=== PATIENT | female | born 1960 | race Caucasian/White ===

== ENCOUNTER → 2019-01-22 11:24 | Outpatient (CLI) | payer OTHER, MEDICAID, SELFPAY ==
[2019-01-22 12:13] LABS: Hemoglobin A1C% w Est Avg Glu 5.3 % (4.0-6.0)
[2019-01-22 13:04] LABS: Alanine Aminotransferase 88 IU/L (9-52); Albumin 4.6 g/dL (3.5-5.0); Albumin Globulin Ratio 1.4 (1.0-2.8); Alkaline Phosphatase 76 U/L (38-126); Aspartate Aminotransferase 104 IU/L (14-36); BUN Creatinine Ratio 17.5 (6-22); Blood Urea Nitrogen 14 mg/dL (7-17); Calcium 9.5 mg/dL (8.4-10.2); Carbon Dioxide 25 mmol/L (22-32); Chloride 100 mmol/L (98-107); Cholesterol 176 mg/dL (140-199); Estimated Glomerular Filt Rate > 60.0 mL/min (>60); Globulin 3.4 g/dL (1.7-4.1); Glucose 97 mg/dL (70-100); HDL Cholesterol 45 mg/dL (40-60); HEMOLYSIS < 15 (0-50); LDL Cholesterol Calculated 92 mg/dL (<100); Potassium 4.8 mmol/L (3.4-5.1); Sodium 138 mmol/L (137-145); Triglycerides 196 mg/dL (35-150)
== END ==
PROVIDERS: Visit Provider Registered Nurse
DX: R73.01 Impaired fasting glucose (principal); I10 Essential (primary) hypertension
CPT/HCPCS: 36415; 80053; 80061; 83036

== ENCOUNTER → 2019-01-22 11:44 | Outpatient (CLI) | payer OTHER, MEDICAID, SELFPAY ==
--- NOTE | 2019-01-22 | DI.RAD.S_ITS ---
PROCEDURE: XR KNEE LT 3V INDICATIONS: LEFT KNEE PAIN TECHNIQUE: 3 views of the knee were acquired. COMPARISON: None. FINDINGS: Bones: Mild tricompartment osteoarthritis is seen. No fractures or dislocations. No suspicious bony lesions. Soft tissues: No joint effusion. No suspicious soft tissue calcifications. IMPRESSION: Moderate compartment osteoarthritis. No left knee fracture or dislocation. Dictated by: Gerber Garcia M.D. on 01/22/2019 at 14:31 Approved by: Gerber Garcia M.D. on 01/22/2019 at 14:31
[2019-01-22 15:49] LABS: Creatinine Urine Random 192.6 mg/dL
[2019-01-22 15:52] LABS: Microalbumin Urine Random 2.7 mg/dL (0-1.6)
== END ==
PROVIDERS: Visit Provider Registered Nurse
DX: M25.562 Pain in left knee (principal); M17.12 Unilateral primary osteoarthritis, left knee; R73.01 Impaired fasting glucose; I10 Essential (primary) hypertension
CPT/HCPCS: 36415; 73562; 80053; 80061; 82043; 82570; 83036

== ENCOUNTER → 2019-02-17 09:24 | Outpatient (CLI) | payer OTHER, MEDICAID, SELFPAY ==
--- NOTE | 2019-02-17 | DI.MG.S_ITS ---
BILATERAL DIGITAL SCREENING MAMMOGRAM 3D/2D WITH CAD: 02/17/2019 CLINICAL: Routine screening. Comparison is made to exams dated: 02/16/2018 mammogram, 12/30/2016 mammogram, and 12/18/2015 mammogram - [facility]. There are scattered fibroglandular elements in both breasts. Current study was also evaluated with a Computer Aided Detection (CAD) system. No significant masses, calcifications, or other findings are seen in either breast. There has been no significant interval change. IMPRESSION: NEGATIVE There is no mammographic evidence of malignancy. A 1 year screening mammogram is recommended. This exam was interpreted at Station ID: [id number]. NOTE: For mammograms, a report in lay terms will be sent to the patient. Approximately 15% of breast malignancies will not be visualized mammographically. In the management of a palpable breast mass, a negative mammogram must not discourage biopsy of a clinically suspicious lesion. Electronically Signed By: Nakul fraser/malena:02/17/2019 11:51:31 letter sent: Normal Exam ACR BI-RADS Category 1: Negative [id number]
== END ==
PROVIDERS: PCP Nurse Practitioner; Visit Provider Registered Nurse
DX: Z12.31 Encounter for screening mammogram for malignant neoplasm of breast (principal)
CPT/HCPCS: 77063; 77067

== ENCOUNTER 2019-04-28 09:00 | Outpatient (RCR) | payer OTHER, MEDICAID, SELFPAY ==
--- NOTE | 2019-02-22 10:20 | PT.OIE ---
Current Diagnoses Pain in left knee (02/22/19) Past Surgical History Status post delivery Provider Visit Care Team Role Provider Type ERIC Hankins Primary Care Provider Advanced Logistics Associate Specialty: Family Practice Address: [address] [place] [address], [id number] Email: ERIC Isbell Attending Provider Advanced Logistics Associate Specialty: Medical Address: [address] [place] [address], [phone] Email: Physical Therapy Initial Evaluation PT-OP-A Visit Information Start: 02/19/19 13:43 Freq: Status: Active Protocol: Document 02/22/19 09:03 [facility] (Rec: 02/22/19 09:50 [facility] [id number]) Out-Patient Physical Therapy Visit Information Visit Information Visit Type Initial Evaluation Visit Start Time 09:05 Visit Number 11/19 Number of TOOL AND DIE SUPERVISOR Visits 0 PT-OP-B Current Condition Start: 02/19/19 13:43 Freq: Status: Active Protocol: Document 02/22/19 09:03 [facility] (Rec: 02/22/19 09:50 [facility] [id number]) Current Condition History of Current Condition Onset Date chronic years Current Complaints L knee History of Current Condition Pt reports chronic L knee pain and it got worse when she was hiking and twisted it. Pt reports it goes up and down with pain and she injures it and it hurts and starts to slowly get better. Pt reports she has been doing water aerobics and it helps. Pt has it suggested to her by MD to start walking for BP. Pt reports pain at night that makes sleeping difficult. Prior Treatments and Tests Xray showed moderate arthritis Treatment Goals Patient/Caregiver Goals Start walking and maybe be able to progress to being able to walk with PT-OP-C Subjective Start: 02/19/19 13:43 Freq: Status: Active Protocol: Document 02/22/19 09:03 [facility] (Rec: 02/22/19 09:50 [facility] [id number]) Patient Questionnaires Lower Extremity Functional Scale LEFS Score 58 LEFS Impairment 20 to 39% Impaired (Score 48- 62) OP-PT Pain Assessment Location L knee Pain Location Details ant lat Intensity 4 Scale Used Numeric (1 - 10) Description Aching Frequency Constant Pain Aggravating Factors Stair Climbing Other Pain Aggravating Factors extended walking Other Pain Alleviating Factors water aerobics PT-OP-F Manual Assessment Start: 02/19/19 13:43 Freq: Status: Active Protocol: Document 02/22/19 09:03 [facility] (Rec: 02/22/19 09:50 [facility] [id number]) Manual Assessments Soft Tissue Assessment Soft Tissue Mobility Assessment STM to all LE muscles & joint line Joint Mobility Assessment Joint Mobility Assessment pronation L>R PT-OP-G Mobility & Gait Start: 02/19/19 13:43 Freq: Status: Active Protocol: Document 02/22/19 09:03 [facility] (Rec: 02/22/19 09:50 [facility] [id number]) OP Gait Assessment Comments Gait Comments Pt has dec post depression & ant elevation B PT-OP-J Posture/Palpation/Skin Start: 02/19/19 13:43 Freq: Status: Active Protocol: Document 02/22/19 09:03 [facility] (Rec: 02/22/19 09:50 [facility] [id number]) Posture Evaluation [facility] Postural Classification System [facility] Postural Classifications Anterior/Posterior PT-OP-K Range of Motion Start: 02/19/19 13:43 Freq: Status: Active Protocol: Document 02/22/19 09:03 [facility] (Rec: 02/22/19 09:50 [facility] [id number]) Knee Goniometric Range of Motion Knee Measured in Degrees Right Patient Position Supine Flexion Active (degrees) 121 Extension Active (degrees) 0 Left Patient Position Supine Flexion Active (degrees) 114 Extension Active (degrees) 8 PT-OP-L Special Tests Start: 02/19/19 13:43 Freq: Status: Active Protocol: Document 02/22/19 09:03 [facility] (Rec: 02/22/19 09:50 [facility] [id number]) Special Tests Knee Special Tests Varus- 25 Degrees Test Results neg Valgus- 25 Degrees Test Results neg Greyson Test Test Results positive L Tina's Test Results neg Posterior Draw Test Results neg PT-OP-M Strength Start: 02/19/19 13:43 Freq: Status: Active Protocol: Document 02/22/19 09:03 [facility] (Rec: 02/22/19 09:50 [facility] [id number]) Hip Strength Hip Manual Muscle Testing Right Flexion (L2) 4+ Good+ Extension (S1) 4- Good- Abduction 4 Good External Rotation 4+ Good+ Internal Rotation 4+ Good+ Left Flexion (L2) 4- Good- Extension (S1) 4- Good- Abduction 4- Good- External Rotation 4- Good- Internal Rotation 4 Good Knee Strength Knee Manual Muscle Testing Right Flexion (S2) 5 Normal Extension (L3) 5 Normal Left Flexion (S2) 4+ Good+ Extension (L3) 4 Good Ankle/Foot Strength Ankle and Foot Manual Muscle Testing Right Dorsiflexion (L4) 5 Normal Plantarflexion (S1) 5 Normal Left Dorsiflexion (L4) 5 Normal Plantarflexion (S1) 5 Normal Comments small range PT-OP-Q Treatments Start: 02/19/19 13:43 Freq: Status: Active Protocol: Document 02/22/19 09:03 [facility] (Rec: 02/22/19 10:20 [facility] [id number]) Therapeutic Exercises Supine Exercises bridge Supine Exercise Name focus on core & glute contraction Side bilateral Reps/Minutes 10 Sidelying Exercises abd Sidelying Exercise Name hip abd w/cueing for neutral position Side bilateral Reps/Minutes 10 Self-Care/Home Management Treatment Education Other Education edu for ice and heat PT-OP-T Assessment and Plan Start: 02/19/19 13:43 Freq: Status: Active Protocol: Document 02/22/19 09:03 [facility] (Rec: 02/22/19 09:50 [facility] [id number]) Physical Therapy Assessment Rehab Potential Rehabilitation Potential Good Evaluation Complexity Number of Personal Factors/Comorbidities 3 or More Number of Body Systems Impaired 4 or More Clinical Presentation at Evaluation Evolving Impairments Impairments Activity Tolerance Balance Functional Activities Functional Mobility Gait Pain Posture ROM Soft Tissue Mobility Strength Goals gait Short Term Goal (STG) Pt will walk 1 mile consistantly at least 3x/week without inc of pain greater than 1 point on 10 point scale . STG Duration 03/24/19 Vendor Specialist Goal (LTG) Pt will be able to walk at least 4x/week without inc of L knee pain. LTG Duration 04/24/19 strength Short Term Goal (STG) Pt will be indep with HEP. STG Duration 03/24/19 Vendor Specialist Goal (LTG) Pt will have 5/5 LE strength in order to allow her to progress activity tolerance. LTG Duration 04/24/19 Assessment Summary Assessment Pt presents with L knee pain with impaired foot posture & positioning and overall dec LE and core strength. She has impaired gait mechanics and limited activity tolerance at this time. She presents with Xray revealed moderate OA with no prior treatment of chronic knee pain. She would benefit from skilled PT in order to improve ROM, LE strength, gait mechanics & postural stability. Physical Therapy Plan Frequency and Duration Frequency of Treatment 2x/Week Duration of Treatment 2 months Plan of Care Start Date 02/22/19 Plan of Care End Date 04/24/19 Therapeutic Interventions Therapeutic Interventions Aquatic Therapy Balance Training Gait Training Home Exercise Program Joint Mobilizations Manual Therapy Neuromuscular Re-education Patient/Caregiver Education Self-Care/Home Management Soft Tissue Mobilization Taping Therapeutic Activities Therapeutic Exercises Modalities Cold Pack/Ice Massage Electric Stimulation Hot Packs Infrared Therapy Iontophoresis Ultrasound Next Visit Focus/Plan Next Note Type Treatment Note Next Visit Plan Assess flexiblity and do flexibility exercises, core exercise, stepper, clamshells
--- NOTE | 2019-02-22 10:20 | PT.OPPOC ---
Current Diagnoses Pain in left knee (02/22/19) Provider Visit Care Team Role Provider Type ERIC Hankins Primary Care Provider Advanced Traffic Personnel Supervisor Specialty: Family Practice Address: [address] [place] [address], [phone] Email: ERIC Isbell Attending Provider Advanced Traffic Personnel Supervisor Specialty: Medical Address: [address] [place] [address], [phone] Email: Plan Of Care PT-OP-T Assessment and Plan Start: 02/19/19 13:43 Freq: Status: Active Protocol: Document 02/22/19 09:03 [facility] (Rec: 02/22/19 09:50 [facility] [id number]) Physical Therapy Assessment Rehab Potential Rehabilitation Potential Good Evaluation Complexity Number of Personal Factors/Comorbidities 3 or More Number of Body Systems Impaired 4 or More Clinical Presentation at Evaluation Evolving Impairments Impairments Activity Tolerance Balance Functional Activities Functional Mobility Gait Pain Posture ROM Soft Tissue Mobility Strength Goals gait Short Term Goal (STG) Pt will walk 1 mile consistantly at least 3x/week without inc of pain greater than 1 point on 10 point scale . STG Duration 03/24/19 Auction Clerk Goal (LTG) Pt will be able to walk at least 4x/week without inc of L knee pain. LTG Duration 04/24/19 strength Short Term Goal (STG) Pt will be indep with HEP. STG Duration 03/24/19 Auction Clerk Goal (LTG) Pt will have 5/5 LE strength in order to allow her to progress activity tolerance. LTG Duration 04/24/19 Assessment Summary Assessment Pt presents with L knee pain with impaired foot posture & positioning and overall dec LE and core strength. She has impaired gait mechanics and limited activity tolerance at this time. She presents with Xray revealed moderate OA with no prior treatment of chronic knee pain. She would benefit from skilled PT in order to improve ROM, LE strength, gait mechanics & postural stability. Physical Therapy Plan Frequency and Duration Frequency of Treatment 2x/Week Duration of Treatment 2 months Plan of Care Start Date 02/22/19 Plan of Care End Date 04/24/19 Therapeutic Interventions Therapeutic Interventions Aquatic Therapy Balance Training Gait Training Home Exercise Program Joint Mobilizations Manual Therapy Neuromuscular Re-education Patient/Caregiver Education Self-Care/Home Management Soft Tissue Mobilization Taping Therapeutic Activities Therapeutic Exercises Modalities Cold Pack/Ice Massage Electric Stimulation Hot Packs Infrared Therapy Iontophoresis Ultrasound Next Visit Focus/Plan Next Note Type Treatment Note Next Visit Plan Assess flexiblity and do flexibility exercises, core exercise, stepper, clamshells Plan of Care Dates Plan of Care Start Date 02/22/19 Plan of Care End Date 04/24/19 Please Sign and Return: I have reviewed this Plan of Care and certify that the skilled therapy services above are required to meet the patient?s needs. Physician Signature Date Printed Name and Credentials Clinical Instructor Signature Printed Name and Credentials
--- NOTE | 2019-02-24 09:45 | PT.OTN ---
Current Diagnoses Pain in left knee (02/24/19) Physical Therapy Treatment Note PT-OP-A Visit Information Start: 02/19/19 13:43 Freq: Status: Active Protocol: Document 02/24/19 09:05 [facility] (Rec: 02/24/19 09:44 [facility] [id number]) Out-Patient Physical Therapy Visit Information Visit Information Visit Type Treatment Note Visit Start Time 09:00 Visit Stop Time 09:40 Total Visit Minutes 40 Visit Number 2 Number of PATIENT SAFETY MANAGER Visits 0 PT-OP-B Current Condition Start: 02/19/19 13:43 Freq: Status: Active Protocol: Document 02/22/19 09:03 [facility] (Rec: 02/22/19 09:50 [facility] [id number]) Current Condition History of Current Condition Onset Date chronic years Current Complaints L knee History of Current Condition Pt reports chronic L knee pain and it got worse when she was hiking and twisted it. Pt reports it goes up and down with pain and she injures it and it hurts and starts to slowly get better. Pt reports she has been doing water aerobics and it helps. Pt has it suggested to her by MD to start walking for BP. Pt reports pain at night that makes sleeping difficult. Prior Treatments and Tests Xray showed moderate arthritis Treatment Goals Patient/Caregiver Goals Start walking and maybe be able to progress to being able to walk with PT-OP-C Subjective Start: 02/19/19 13:43 Freq: Status: Active Protocol: Document 02/24/19 09:05 [facility] (Rec: 02/24/19 09:44 [facility] [id number]) OP-PT Subjective Patient Comments Patient Comments Pt reports she is doing the exercises at home and they are a challenge. Her knee was stiff yesterday PT-OP-F Manual Assessment Start: 02/19/19 13:43 Freq: Status: Active Protocol: Document 02/22/19 09:03 [facility] (Rec: 02/22/19 09:50 [facility] [id number]) Manual Assessments Soft Tissue Assessment Soft Tissue Mobility Assessment STM to all LE muscles & joint line Joint Mobility Assessment Joint Mobility Assessment pronation L>R PT-OP-G Mobility & Gait Start: 02/19/19 13:43 Freq: Status: Active Protocol: Document 02/22/19 09:03 [facility] (Rec: 02/22/19 09:50 [facility] [id number]) OP Gait Assessment Comments Gait Comments Pt has dec post depression & ant elevation B PT-OP-J Posture/Palpation/Skin Start: 02/19/19 13:43 Freq: Status: Active Protocol: Document 02/22/19 09:03 [facility] (Rec: 02/22/19 09:50 [facility] [id number]) Posture Evaluation [facility] Postural Classification System [facility] Postural Classifications Anterior/Posterior PT-OP-K Range of Motion Start: 02/19/19 13:43 Freq: Status: Active Protocol: Document 02/22/19 09:03 [facility] (Rec: 02/22/19 09:50 [facility] [id number]) Knee Goniometric Range of Motion Knee Measured in Degrees Right Patient Position Supine Flexion Active (degrees) 121 Extension Active (degrees) 0 Left Patient Position Supine Flexion Active (degrees) 114 Extension Active (degrees) 8 PT-OP-L Special Tests Start: 02/19/19 13:43 Freq: Status: Active Protocol: Document 02/22/19 09:03 [facility] (Rec: 02/22/19 09:50 [facility] [id number]) Special Tests Knee Special Tests Varus- 25 Degrees Test Results neg Valgus- 25 Degrees Test Results neg Greyson Test Test Results positive L Tina's Test Results neg Posterior Draw Test Results neg PT-OP-M Strength Start: 02/19/19 13:43 Freq: Status: Active Protocol: Document 02/22/19 09:03 [facility] (Rec: 02/22/19 09:50 [facility] [id number]) Hip Strength Hip Manual Muscle Testing Right Flexion (L2) 4+ Good+ Extension (S1) 4- Good- Abduction 4 Good External Rotation 4+ Good+ Internal Rotation 4+ Good+ Left Flexion (L2) 4- Good- Extension (S1) 4- Good- Abduction 4- Good- External Rotation 4- Good- Internal Rotation 4 Good Knee Strength Knee Manual Muscle Testing Right Flexion (S2) 5 Normal Extension (L3) 5 Normal Left Flexion (S2) 4+ Good+ Extension (L3) 4 Good Ankle/Foot Strength Ankle and Foot Manual Muscle Testing Right Dorsiflexion (L4) 5 Normal Plantarflexion (S1) 5 Normal Left Dorsiflexion (L4) 5 Normal Plantarflexion (S1) 5 Normal Comments small range PT-OP-Q Treatments Start: 02/19/19 13:43 Freq: Status: Active Protocol: Document 02/24/19 09:05 [facility] (Rec: 02/24/19 09:44 [facility] [id number]) Cardio Equipment Recumbent Elliptical (Biodex) Duration (Minutes) 5 Resistance 3 Therapeutic Exercises Supine Exercises SLR Supine Exercise Name w/core brace Side bilateral Reps/Minutes 10 HS stretch Supine Exercise Name HS stretch Side bilateral Reps/Minutes 30 sec Felix test Supine Exercise Name stretch Side bilateral Reps/Minutes 30 sec holds bridge Supine Exercise Name focus on core & glute contraction Side bilateral Reps/Minutes 10 Sidelying Exercises ER Sidelying Exercise Name clamshells Side bilateral Reps/Minutes 10 abd Sidelying Exercise Name hip abd w/cueing for neutral position Side bilateral Reps/Minutes 10 Manual Therapy Treatment Soft Tissue Mobilization quad Body Location quad Mobilization Type Rolling Intensity/Depth Moderate Body Position Supine ITB Body Location ITB Mobilization Type Rolling Intensity/Depth Moderate Body Position Hooklying PT-OP-T Assessment and Plan Start: 02/19/19 13:43 Freq: Status: Active Protocol: Document 02/24/19 09:05 [facility] (Rec: 02/24/19 09:44 [facility] [id number]) Physical Therapy Assessment Goals gait Short Term Goal (STG) Pt will walk 1 mile consistantly at least 3x/week without inc of pain greater than 1 point on 10 point scale . STG Duration 03/24/19 Senior Living Goal (LTG) Pt will be able to walk at least 4x/week without inc of L knee pain. LTG Duration 04/24/19 strength Short Term Goal (STG) Pt will be indep with HEP. STG Duration 03/24/19 Junior Web Developer Goal (LTG) Pt will have 5/5 LE strength in order to allow her to progress activity tolerance. LTG Duration 04/24/19 Assessment Summary Assessment Pt able to tolerate all exercises without c/o knee pain except stepper which did create some mild soreness. She required ceuing throughout for core to keep pelvis neutral during exercise. Physical Therapy Plan Frequency and Duration Frequency of Treatment 2x/Week Duration of Treatment 2 months Plan of Care Start Date 02/22/19 Plan of Care End Date 04/24/19 Next Visit Focus/Plan Next Note Type Treatment Note Next Visit Plan Leg press and try mini squat in standing, progress core & LE strenth
--- NOTE | 2019-03-02 09:15 | PT.OTN ---
Current Diagnoses Pain in left knee (03/02/19) Physical Therapy Treatment Note PT-OP-A Visit Information Start: 02/19/19 13:43 Freq: Status: Active Protocol: Document 03/02/19 08:20 [facility] (Rec: 03/02/19 09:15 [facility] [id number]) Out-Patient Physical Therapy Visit Information Visit Information Visit Type Treatment Note Visit Start Time 08:18 Visit Stop Time 08:58 Total Visit Minutes 40 Visit Number 3 Number of LPN RN Visits 0 PT-OP-B Current Condition Start: 02/19/19 13:43 Freq: Status: Active Protocol: Document 02/22/19 09:03 [facility] (Rec: 02/22/19 09:50 [facility] [id number]) Current Condition History of Current Condition Onset Date chronic years Current Complaints L knee History of Current Condition Pt reports chronic L knee pain and it got worse when she was hiking and twisted it. Pt reports it goes up and down with pain and she injures it and it hurts and starts to slowly get better. Pt reports she has been doing water aerobics and it helps. Pt has it suggested to her by MD to start walking for BP. Pt reports pain at night that makes sleeping difficult. Prior Treatments and Tests Xray showed moderate arthritis Treatment Goals Patient/Caregiver Goals Start walking and maybe be able to progress to being able to walk with PT-OP-C Subjective Start: 02/19/19 13:43 Freq: Status: Active Protocol: Document 03/02/19 08:20 [facility] (Rec: 03/02/19 09:15 [facility] [id number]) OP-PT Subjective Patient Comments Patient Comments Pt reports she felt better w/ last treatment, but noted she walked Fri and irritated again . PT-OP-F Manual Assessment Start: 02/19/19 13:43 Freq: Status: Active Protocol: Document 02/22/19 09:03 [facility] (Rec: 02/22/19 09:50 [facility] [id number]) Manual Assessments Soft Tissue Assessment Soft Tissue Mobility Assessment STM to all LE muscles & joint line Joint Mobility Assessment Joint Mobility Assessment pronation L>R PT-OP-G Mobility & Gait Start: 02/19/19 13:43 Freq: Status: Active Protocol: Document 02/22/19 09:03 [facility] (Rec: 02/22/19 09:50 [facility] [id number]) OP Gait Assessment Comments Gait Comments Pt has dec post depression & ant elevation B PT-OP-J Posture/Palpation/Skin Start: 02/19/19 13:43 Freq: Status: Active Protocol: Document 02/22/19 09:03 [facility] (Rec: 02/22/19 09:50 [facility] [id number]) Posture Evaluation [facility] Postural Classification System [facility] Postural Classifications Anterior/Posterior PT-OP-K Range of Motion Start: 02/19/19 13:43 Freq: Status: Active Protocol: Document 02/22/19 09:03 [facility] (Rec: 02/22/19 09:50 [facility] [id number]) Knee Goniometric Range of Motion Knee Measured in Degrees Right Patient Position Supine Flexion Active (degrees) 121 Extension Active (degrees) 0 Left Patient Position Supine Flexion Active (degrees) 114 Extension Active (degrees) 8 PT-OP-L Special Tests Start: 02/19/19 13:43 Freq: Status: Active Protocol: Document 02/22/19 09:03 [facility] (Rec: 02/22/19 09:50 [facility] [id number]) Special Tests Knee Special Tests Varus- 25 Degrees Test Results neg Valgus- 25 Degrees Test Results neg Greyson Test Test Results positive L Tina's Test Results neg Posterior Draw Test Results neg PT-OP-M Strength Start: 02/19/19 13:43 Freq: Status: Active Protocol: Document 02/22/19 09:03 [facility] (Rec: 02/22/19 09:50 [facility] [id number]) Hip Strength Hip Manual Muscle Testing Right Flexion (L2) 4+ Good+ Extension (S1) 4- Good- Abduction 4 Good External Rotation 4+ Good+ Internal Rotation 4+ Good+ Left Flexion (L2) 4- Good- Extension (S1) 4- Good- Abduction 4- Good- External Rotation 4- Good- Internal Rotation 4 Good Knee Strength Knee Manual Muscle Testing Right Flexion (S2) 5 Normal Extension (L3) 5 Normal Left Flexion (S2) 4+ Good+ Extension (L3) 4 Good Ankle/Foot Strength Ankle and Foot Manual Muscle Testing Right Dorsiflexion (L4) 5 Normal Plantarflexion (S1) 5 Normal Left Dorsiflexion (L4) 5 Normal Plantarflexion (S1) 5 Normal Comments small range PT-OP-Q Treatments Start: 02/19/19 13:43 Freq: Status: Active Protocol: Document 03/02/19 08:20 [facility] (Rec: 03/02/19 09:15 [facility] [id number]) Gym Equipment Shuttle Recovery Bilateral Squats Resistance 75 Shuttle Recovery Platform Unstable Reps/Time 2x15 Therapeutic Exercises Supine Exercises SLR Supine Exercise Name w/core brace Side bilateral Reps/Minutes 10 Sidelying Exercises ER Sidelying Exercise Name clamshells Side bilateral Reps/Minutes 10 abd Sidelying Exercise Name hip abd w/cueing for neutral position Side bilateral Reps/Minutes 10 Standing Exercises squat Standing Exercise Name at rail Side bilateral Reps/Minutes 2x10 Comments mini Manual Therapy Treatment Soft Tissue Mobilization ant knee Body Location med direction Mobilization Type Myofascial Release Intensity/Depth Superficial Body Position Hooklying quad Body Location quad Mobilization Type Rolling Intensity/Depth Moderate Body Position Supine ITB Body Location ITB Mobilization Type Rolling Intensity/Depth Moderate Body Position Hooklying Taping KT Body Location for med patellar glide Treatment Focus 3 Ys Type of Tape Kinesio Tape PT-OP-T Assessment and Plan Start: 02/19/19 13:43 Freq: Status: Active Protocol: Document 03/02/19 08:20 [facility] (Rec: 03/02/19 09:15 [facility] [id number]) Physical Therapy Assessment Goals gait Short Term Goal (STG) Pt will walk 1 mile consistantly at least 3x/week without inc of pain greater than 1 point on 10 point scale . STG Duration 03/24/19 Care Home Goal (LTG) Pt will be able to walk at least 4x/week without inc of L knee pain. LTG Duration 04/24/19 strength Short Term Goal (STG) Pt will be indep with HEP. STG Duration 03/24/19 [employer] Goal (LTG) Pt will have 5/5 LE strength in order to allow her to progress activity tolerance. LTG Duration 04/24/19 Assessment Summary Assessment Pt was able to tolerate all exercises with no c/o pain. Pt required min cueing for s/l abd positioning and maintaining leg in line with body. Physical Therapy Plan Frequency and Duration Frequency of Treatment 2x/Week Duration of Treatment 2 months Plan of Care Start Date 02/22/19 Plan of Care End Date 04/24/19 Next Visit Focus/Plan Next Note Type Treatment Note Next Visit Plan COnt to progress core & standing LE strength & stability
--- NOTE | 2019-03-04 15:52 | PT.OTN ---
Current Diagnoses Pain in left knee (03/04/19) Physical Therapy Treatment Note PT-OP-A Visit Information Start: 02/19/19 13:43 Freq: Status: Active Protocol: Document 03/04/19 09:00 (Rec: 03/04/19 09:03 [id number]) Out-Patient Physical Therapy Visit Information Visit Information Visit Type Treatment Note Visit Start Time 08:20 Visit Stop Time 09:00 Total Visit Minutes 40 Visit Number 4 Number of LIQUID CHLORINE OPERATOR Visits 0 PT-OP-B Current Condition Start: 02/19/19 13:43 Freq: Status: Active Protocol: Document 02/22/19 09:03 [facility] (Rec: 02/22/19 09:50 [facility] [id number]) Current Condition History of Current Condition Onset Date chronic years Current Complaints L knee History of Current Condition Pt reports chronic L knee pain and it got worse when she was hiking and twisted it. Pt reports it goes up and down with pain and she injures it and it hurts and starts to slowly get better. Pt reports she has been doing water aerobics and it helps. Pt has it suggested to her by MD to start walking for BP. Pt reports pain at night that makes sleeping difficult. Prior Treatments and Tests Xray showed moderate arthritis Treatment Goals Patient/Caregiver Goals Start walking and maybe be able to progress to being able to walk with PT-OP-C Subjective Start: 02/19/19 13:43 Freq: Status: Active Protocol: Document 03/04/19 09:00 [facility] (Rec: 03/04/19 09:03 [id number]) OP-PT Subjective Patient Comments Patient Comments Pt notes that the tape really helps, she did her HEP yesterday and has had some soreness in lower abdominals with core stabilization ex. PT-OP-F Manual Assessment Start: 02/19/19 13:43 Freq: Status: Active Protocol: Document 02/22/19 09:03 [facility] (Rec: 02/22/19 09:50 [facility] [id number]) Manual Assessments Soft Tissue Assessment Soft Tissue Mobility Assessment STM to all LE muscles & joint line Joint Mobility Assessment Joint Mobility Assessment pronation L>R PT-OP-G Mobility & Gait Start: 02/19/19 13:43 Freq: Status: Active Protocol: Document 02/22/19 09:03 [facility] (Rec: 02/22/19 09:50 [facility] [id number]) OP Gait Assessment Comments Gait Comments Pt has dec post depression & ant elevation B PT-OP-J Posture/Palpation/Skin Start: 02/19/19 13:43 Freq: Status: Active Protocol: Document 02/22/19 09:03 [facility] (Rec: 02/22/19 09:50 [facility] [id number]) Posture Evaluation [facility] Postural Classification System [facility] Postural Classifications Anterior/Posterior PT-OP-K Range of Motion Start: 02/19/19 13:43 Freq: Status: Active Protocol: Document 02/22/19 09:03 [facility] (Rec: 02/22/19 09:50 [facility] [id number]) Knee Goniometric Range of Motion Knee Measured in Degrees Right Patient Position Supine Flexion Active (degrees) 121 Extension Active (degrees) 0 Left Patient Position Supine Flexion Active (degrees) 114 Extension Active (degrees) 8 PT-OP-L Special Tests Start: 02/19/19 13:43 Freq: Status: Active Protocol: Document 02/22/19 09:03 [facility] (Rec: 02/22/19 09:50 [facility] [id number]) Special Tests Knee Special Tests Varus- 25 Degrees Test Results neg Valgus- 25 Degrees Test Results neg Greyson Test Test Results positive L Tina's Test Results neg Posterior Draw Test Results neg PT-OP-M Strength Start: 02/19/19 13:43 Freq: Status: Active Protocol: Document 02/22/19 09:03 [facility] (Rec: 02/22/19 09:50 [facility] [id number]) Hip Strength Hip Manual Muscle Testing Right Flexion (L2) 4+ Good+ Extension (S1) 4- Good- Abduction 4 Good External Rotation 4+ Good+ Internal Rotation 4+ Good+ Left Flexion (L2) 4- Good- Extension (S1) 4- Good- Abduction 4- Good- External Rotation 4- Good- Internal Rotation 4 Good Knee Strength Knee Manual Muscle Testing Right Flexion (S2) 5 Normal Extension (L3) 5 Normal Left Flexion (S2) 4+ Good+ Extension (L3) 4 Good Ankle/Foot Strength Ankle and Foot Manual Muscle Testing Right Dorsiflexion (L4) 5 Normal Plantarflexion (S1) 5 Normal Left Dorsiflexion (L4) 5 Normal Plantarflexion (S1) 5 Normal Comments small range PT-OP-Q Treatments Start: 04/26/19 13:43 Freq: Status: Active Protocol: Document 03/04/19 09:00 BS (Rec: 03/04/19 09:03 BS [id number]) Gym Equipment Shuttle Recovery Bilateral Squats Resistance 75 Shuttle Recovery Platform Unstable Reps/Time 2x15 Therapeutic Exercises Supine Exercises SLR Supine Exercise Name w/core brace Side bilateral Reps/Minutes x12 HS stretch Supine Exercise Name HS stretch Side bilateral Reps/Minutes 30 sec Felix test Supine Exercise Name stretch Side bilateral Reps/Minutes 30 sec holds bridge Supine Exercise Name focus on core & glute contraction Side bilateral Reps/Minutes 2x10 Prone Exercises 1 Prone Exercise Name prone quad stretch Side bilateral Equipment Used gait belt Reps/Minutes 1x30 each Sidelying Exercises ER Sidelying Exercise Name clamshells Side bilateral Equipment Used #1 band Reps/Minutes 10 Comments supine, TA contraction abd Sidelying Exercise Name hip abd w/cueing for neutral position Side bilateral Reps/Minutes 2x10 Standing Exercises squat Standing Exercise Name wall squats Side bilateral Reps/Minutes 2x10 Comments TA contraction Manual Therapy Treatment Taping KT Body Location for med patellar glide Treatment Focus 3 Ys Type of Tape Kinesio Tape PT-OP-T Assessment and Plan Start: 02/19/19 13:43 Freq: Status: Active Protocol: Document 03/04/19 09:00 BS (Rec: 03/04/19 13:32 BS [id number]) Physical Therapy Assessment Goals gait Short Term Goal (STG) Pt will walk 1 mile consistantly at least 3x/week without inc of pain greater than 1 point on 10 point scale . STG Duration 03/24/19 Residential Goal (LTG) Pt will be able to walk at least 4x/week without inc of L knee pain. LTG Duration 04/24/19 strength Short Term Goal (STG) Pt will be indep with HEP. STG Duration 03/24/19 Retirement Officer Goal (LTG) Pt will have 5/5 LE strength in order to allow her to progress activity tolerance. LTG Duration 04/24/19 Assessment Summary Assessment Pt tolerated session well, did complain of fatigue and mm soreness with TA bracing exercises. No exercises today aggravated her L knee pain. KT taped L knee at end of session as pt notes benefits from it. Physical Therapy Plan Frequency and Duration Frequency of Treatment 2x/Week Duration of Treatment 2 months Plan of Care Start Date 02/22/19 Plan of Care End Date 04/24/19 Next Visit Focus/Plan Next Note Type Treatment Note Next Visit Plan Progress LE strengthening and core stability as able. Monitor core mm soreness.
--- NOTE | 2019-03-08 10:39 | PT.OTN ---
Current Diagnoses Pain in left knee (03/08/19) Physical Therapy Treatment Note PT-OP-A Visit Information Start: 02/19/19 13:43 Freq: Status: Active Protocol: Document 03/08/19 09:06 EA (Rec: 03/08/19 09:38 EA [id number]) Out-Patient Physical Therapy Visit Information Visit Information Visit Type Treatment Note Visit Start Time 08:15 Visit Stop Time 09:00 Total Visit Minutes 40 Visit Number 5 Number of EVENT SALES REPRESENTATIVE Visits 0 PT-OP-B Current Condition Start: 02/19/19 13:43 Freq: Status: Active Protocol: Document 02/22/19 09:03 [facility] (Rec: 02/22/19 09:50 [facility] [id number]) Current Condition History of Current Condition Onset Date chronic years Current Complaints L knee History of Current Condition Pt reports chronic L knee pain and it got worse when she was hiking and twisted it. Pt reports it goes up and down with pain and she injures it and it hurts and starts to slowly get better. Pt reports she has been doing water aerobics and it helps. Pt has it suggested to her by MD to start walking for BP. Pt reports pain at night that makes sleeping difficult. Prior Treatments and Tests Xray showed moderate arthritis Treatment Goals Patient/Caregiver Goals Start walking and maybe be able to progress to being able to walk with PT-OP-C Subjective Start: 02/19/19 13:43 Freq: Status: Active Protocol: Document 03/08/19 09:06 EA (Rec: 03/08/19 09:38 EA [id number]) OP-PT Subjective Patient Comments Patient Comments Pt reports compliant with HEP. PT-OP-F Manual Assessment Start: 02/19/19 13:43 Freq: Status: Active Protocol: Document 02/22/19 09:03 [facility] (Rec: 02/22/19 09:50 [facility] [id number]) Manual Assessments Soft Tissue Assessment Soft Tissue Mobility Assessment STM to all LE muscles & joint line Joint Mobility Assessment Joint Mobility Assessment pronation L>R PT-OP-G Mobility & Gait Start: 02/19/19 13:43 Freq: Status: Active Protocol: Document 02/22/19 09:03 [facility] (Rec: 02/22/19 09:50 [facility] [id number]) OP Gait Assessment Comments Gait Comments Pt has dec post depression & ant elevation B PT-OP-J Posture/Palpation/Skin Start: 02/19/19 13:43 Freq: Status: Active Protocol: Document 02/22/19 09:03 [facility] (Rec: 02/22/19 09:50 [facility] [id number]) Posture Evaluation [facility] Postural Classification System [facility] Postural Classifications Anterior/Posterior PT-OP-K Range of Motion Start: 02/19/19 13:43 Freq: Status: Active Protocol: Document 02/22/19 09:03 [facility] (Rec: 02/22/19 09:50 [facility] [id number]) Knee Goniometric Range of Motion Knee Measured in Degrees Right Patient Position Supine Flexion Active (degrees) 121 Extension Active (degrees) 0 Left Patient Position Supine Flexion Active (degrees) 114 Extension Active (degrees) 8 PT-OP-L Special Tests Start: 02/19/19 13:43 Freq: Status: Active Protocol: Document 02/22/19 09:03 [facility] (Rec: 02/22/19 09:50 [facility] [id number]) Special Tests Knee Special Tests Varus- 25 Degrees Test Results neg Valgus- 25 Degrees Test Results neg Greyson Test Test Results positive L Tina's Test Results neg Posterior Draw Test Results neg PT-OP-M Strength Start: 02/19/19 13:43 Freq: Status: Active Protocol: Document 02/22/19 09:03 [facility] (Rec: 02/22/19 09:50 [facility] [id number]) Hip Strength Hip Manual Muscle Testing Right Flexion (L2) 4+ Good+ Extension (S1) 4- Good- Abduction 4 Good External Rotation 4+ Good+ Internal Rotation 4+ Good+ Left Flexion (L2) 4- Good- Extension (S1) 4- Good- Abduction 4- Good- External Rotation 4- Good- Internal Rotation 4 Good Knee Strength Knee Manual Muscle Testing Right Flexion (S2) 5 Normal Extension (L3) 5 Normal Left Flexion (S2) 4+ Good+ Extension (L3) 4 Good Ankle/Foot Strength Ankle and Foot Manual Muscle Testing Right Dorsiflexion (L4) 5 Normal Plantarflexion (S1) 5 Normal Left Dorsiflexion (L4) 5 Normal Plantarflexion (S1) 5 Normal Comments small range PT-OP-Q Treatments Start: 02/19/19 13:43 Freq: Status: Active Protocol: Document 03/08/19 09:06 [facility] (Rec: 03/08/19 09:38 EA [id number]) Cardio Equipment Recumbent Bicycle Duration (Minutes) 5 Seat Position as tolerated range Other warm up Gym Equipment Shuttle Recovery Unilateral Squats Details 25# Reps/Time x15 reps Bilateral Squats Resistance 75 Shuttle Recovery Platform Unstable Reps/Time 2x15 Therapeutic Exercises Supine Exercises SLR Supine Exercise Name w/core brace Side bilateral Reps/Minutes x12 HS stretch Supine Exercise Name HS stretch Side bilateral Reps/Minutes 30 sec Felix test Supine Exercise Name stretch Side bilateral Reps/Minutes 30 sec holds bridge Supine Exercise Name focus on core & glute contraction Side bilateral Reps/Minutes 2x10 Prone Exercises 1 Prone Exercise Name prone quad stretch Side bilateral Equipment Used gait belt Reps/Minutes 1x30 each Sidelying Exercises ER Sidelying Exercise Name clamshells Side bilateral Equipment Used #1 band Reps/Minutes 10 x 2 sets Comments supine, TA contraction abd Sidelying Exercise Name hip abd w/cueing for neutral position Side bilateral Reps/Minutes 2x10 Standing Exercises squat Standing Exercise Name wall squats Side bilateral Reps/Minutes 2x10 Comments TA contraction Manual Therapy Treatment Soft Tissue Mobilization ant knee Body Location med direction Mobilization Type Myofascial Release Intensity/Depth Superficial Body Position Hooklying quad Body Location quad Mobilization Type Rolling Intensity/Depth Moderate Body Position Supine ITB Body Location ITB Mobilization Type Rolling Intensity/Depth Moderate Body Position Hooklying Taping KT Body Location for med patellar glide Treatment Focus 3 Ys Type of Tape Kinesio Tape PT-OP-T Assessment and Plan Start: 02/19/19 13:43 Freq: Status: Active Protocol: Document 03/08/19 09:06 [facility] (Rec: 03/08/19 09:38 EA [id number]) Physical Therapy Assessment Assessment Summary Assessment Pt tolerated treatment will with no discomfort noted except with difficulty in prone quads stretch. Physical Therapy Plan Next Visit Focus/Plan Next Note Type Treatment Note Next Visit Plan Progress LE strengthening and core stability as able. Monitor core mm soreness.
--- NOTE | 2019-03-11 12:43 | PT.OTN ---
Current Diagnoses Pain in left knee (03/11/19) Physical Therapy Treatment Note PT-OP-A Visit Information Start: 02/19/19 13:43 Freq: Status: Active Protocol: Document 03/08/19 09:06 EA (Rec: 03/08/19 09:38 EA [id number]) Out-Patient Physical Therapy Visit Information Visit Information Visit Type Treatment Note Visit Start Time 08:15 Visit Stop Time 09:00 Total Visit Minutes 40 Visit Number 5 Number of RN ENTEROSTOMAL Visits 0 PT-OP-B Current Condition Start: 02/19/19 13:43 Freq: Status: Active Protocol: Document 02/22/19 09:03 LR (Rec: 02/22/19 09:50 [facility] [id number]) Current Condition History of Current Condition Onset Date chronic years Current Complaints L knee History of Current Condition Pt reports chronic L knee pain and it got worse when she was hiking and twisted it. Pt reports it goes up and down with pain and she injures it and it hurts and starts to slowly get better. Pt reports she has been doing water aerobics and it helps. Pt has it suggested to her by MD to start walking for BP. Pt reports pain at night that makes sleeping difficult. Prior Treatments and Tests Xray showed moderate arthritis Treatment Goals Patient/Caregiver Goals Start walking and maybe be able to progress to being able to walk with PT-OP-C Subjective Start: 02/19/19 13:43 Freq: Status: Active Protocol: Document 03/08/19 09:06 EA (Rec: 03/08/19 09:38 EA [id number]) OP-PT Subjective Patient Comments Patient Comments Pt reports compliant with HEP. PT-OP-F Manual Assessment Start: 02/19/19 13:43 Freq: Status: Active Protocol: Document 02/22/19 09:03 [facility] (Rec: 02/22/19 09:50 [facility] [id number]) Manual Assessments Soft Tissue Assessment Soft Tissue Mobility Assessment STM to all LE muscles & joint line Joint Mobility Assessment Joint Mobility Assessment pronation L>R PT-OP-G Mobility & Gait Start: 02/19/19 13:43 Freq: Status: Active Protocol: Document 02/22/19 09:03 [facility] (Rec: 02/22/19 09:50 [facility] [id number]) OP Gait Assessment Comments Gait Comments Pt has dec post depression & ant elevation B PT-OP-J Posture/Palpation/Skin Start: 02/19/19 13:43 Freq: Status: Active Protocol: Document 02/22/19 09:03 [facility] (Rec: 02/22/19 09:50 [facility] [id number]) Posture Evaluation [facility] Postural Classification System [place] Postural Classifications Anterior/Posterior PT-OP-K Range of Motion Start: 02/19/19 13:43 Freq: Status: Active Protocol: Document 02/22/19 09:03 [facility] (Rec: 02/22/19 09:50 [facility] [id number]) Knee Goniometric Range of Motion Knee Measured in Degrees Right Patient Position Supine Flexion Active (degrees) 121 Extension Active (degrees) 0 Left Patient Position Supine Flexion Active (degrees) 114 Extension Active (degrees) 8 PT-OP-L Special Tests Start: 02/19/19 13:43 Freq: Status: Active Protocol: Document 02/22/19 09:03 [facility] (Rec: 02/22/19 09:50 [facility] [id number]) Special Tests Knee Special Tests Varus- 25 Degrees Test Results neg Valgus- 25 Degrees Test Results neg Greyson Test Test Results positive L Tina's Test Results neg Posterior Draw Test Results neg PT-OP-M Strength Start: 02/19/19 13:43 Freq: Status: Active Protocol: Document 02/22/19 09:03 [facility] (Rec: 02/22/19 09:50 [facility] [id number]) Hip Strength Hip Manual Muscle Testing Right Flexion (L2) 4+ Good+ Extension (S1) 4- Good- Abduction 4 Good External Rotation 4+ Good+ Internal Rotation 4+ Good+ Left Flexion (L2) 4- Good- Extension (S1) 4- Good- Abduction 4- Good- External Rotation 4- Good- Internal Rotation 4 Good Knee Strength Knee Manual Muscle Testing Right Flexion (S2) 5 Normal Extension (L3) 5 Normal Left Flexion (S2) 4+ Good+ Extension (L3) 4 Good Ankle/Foot Strength Ankle and Foot Manual Muscle Testing Right Dorsiflexion (L4) 5 Normal Plantarflexion (S1) 5 Normal Left Dorsiflexion (L4) 5 Normal Plantarflexion (S1) 5 Normal Comments small range PT-OP-Q Treatments Start: 02/19/19 13:43 Freq: Status: Active Protocol: Document 03/08/19 09:06 ZANA (Rec: 03/08/19 09:38 EA [id number]) Cardio Equipment Recumbent Bicycle Duration (Minutes) 5 Seat Position as tolerated range Other warm up Gym Equipment Shuttle Recovery Unilateral Squats Details 25# Reps/Time x15 reps Bilateral Squats Resistance 75 Shuttle Recovery Platform Unstable Reps/Time 2x15 Therapeutic Exercises Supine Exercises SLR Supine Exercise Name w/core brace Side bilateral Reps/Minutes x12 HS stretch Supine Exercise Name HS stretch Side bilateral Reps/Minutes 30 sec Felix test Supine Exercise Name stretch Side bilateral Reps/Minutes 30 sec holds bridge Supine Exercise Name focus on core & glute contraction Side bilateral Reps/Minutes 2x10 Prone Exercises 1 Prone Exercise Name prone quad stretch Side bilateral Equipment Used gait belt Reps/Minutes 1x30 each Sidelying Exercises ER Sidelying Exercise Name clamshells Side bilateral Equipment Used #1 band Reps/Minutes 10 x 2 sets Comments supine, TA contraction abd Sidelying Exercise Name hip abd w/cueing for neutral position Side bilateral Reps/Minutes 2x10 Standing Exercises squat Standing Exercise Name wall squats Side bilateral Reps/Minutes 2x10 Comments TA contraction Manual Therapy Treatment Soft Tissue Mobilization ant knee Body Location med direction Mobilization Type Myofascial Release Intensity/Depth Superficial Body Position Hooklying quad Body Location quad Mobilization Type Rolling Intensity/Depth Moderate Body Position Supine ITB Body Location ITB Mobilization Type Rolling Intensity/Depth Moderate Body Position Hooklying Taping KT Body Location for med patellar glide Treatment Focus 3 Ys Type of Tape Kinesio Tape PT-OP-T Assessment and Plan Start: 02/19/19 13:43 Freq: Status: Active Protocol: Document 03/08/19 09:06 ZANA (Rec: 03/08/19 09:38 EA [id number]) Physical Therapy Assessment Assessment Summary Assessment Pt tolerated treament will with no discomfort noted ecept with difficulty in prone quads stretch. Physical Therapy Plan Next Visit Focus/Plan Next Note Type Treatment Note Next Visit Plan Progress LE strengthening and core stability as able. Monitor core mm soreness.
--- NOTE | 2019-03-11 12:44 | PT.OTN ---
Current Diagnoses Pain in left knee (03/11/19) Physical Therapy Treatment Note PT-OP-A Visit Information Start: 02/19/19 13:43 Freq: Status: Active Protocol: Document 03/11/19 09:51 [facility] (Rec: 03/11/19 12:44 [facility] [id number]) Out-Patient Physical Therapy Visit Information Visit Information Visit Type Treatment Note Visit Start Time 09:48 Visit Stop Time 10:28 Total Visit Minutes 40 Visit Number 6 Number of MOSQUITO SPRAYER Visits 0 PT-OP-B Current Condition Start: 02/19/19 13:43 Freq: Status: Active Protocol: Document 02/22/19 09:03 [facility] (Rec: 02/22/19 09:50 [facility] [id number]) Current Condition History of Current Condition Onset Date chronic years Current Complaints L knee History of Current Condition Pt reports chronic L knee pain and it got worse when she was hiking and twisted it. Pt reports it goes up and down with pain and she injures it and it hurts and starts to slowly get better. Pt reports she has been doing water aerobics and it helps. Pt has it suggested to her by MD to start walking for BP. Pt reports pain at night that makes sleeping difficult. Prior Treatments and Tests Xray showed moderate arthritis Treatment Goals Patient/Caregiver Goals Start walking and maybe be able to progress to being able to walk with PT-OP-C Subjective Start: 02/19/19 13:43 Freq: Status: Active Protocol: Document 03/11/19 09:51 [facility] (Rec: 03/11/19 12:44 [facility] [id number]) OP-PT Subjective Patient Comments Patient Comments Pt reports compliance with HEP . Patient Reported Progress Improving PT-OP-F Manual Assessment Start: 02/19/19 13:43 Freq: Status: Active Protocol: Document 02/22/19 09:03 [facility] (Rec: 02/22/19 09:50 [facility] [id number]) Manual Assessments Soft Tissue Assessment Soft Tissue Mobility Assessment STM to all LE muscles & joint line Joint Mobility Assessment Joint Mobility Assessment pronation L>R PT-OP-G Mobility & Gait Start: 02/19/19 13:43 Freq: Status: Active Protocol: Document 02/22/19 09:03 [facility] (Rec: 02/22/19 09:50 [facility] [id number]) OP Gait Assessment Comments Gait Comments Pt has dec post depression & ant elevation B PT-OP-J Posture/Palpation/Skin Start: 02/19/19 13:43 Freq: Status: Active Protocol: Document 02/22/19 09:03 [facility] (Rec: 02/22/19 09:50 [facility] [id number]) Posture Evaluation [facility] Postural Classification System [facility] Postural Classifications Anterior/Posterior PT-OP-K Range of Motion Start: 02/19/19 13:43 Freq: Status: Active Protocol: Document 02/22/19 09:03 [facility] (Rec: 02/22/19 09:50 [facility] [id number]) Knee Goniometric Range of Motion Knee Measured in Degrees Right Patient Position Supine Flexion Active (degrees) 121 Extension Active (degrees) 0 Left Patient Position Supine Flexion Active (degrees) 114 Extension Active (degrees) 8 PT-OP-L Special Tests Start: 02/19/19 13:43 Freq: Status: Active Protocol: Document 02/22/19 09:03 [facility] (Rec: 02/22/19 09:50 [facility] [id number]) Special Tests Knee Special Tests Varus- 25 Degrees Test Results neg Valgus- 25 Degrees Test Results neg Greyson Test Test Results positive L Tina's Test Results neg Posterior Draw Test Results neg PT-OP-M Strength Start: 02/19/19 13:43 Freq: Status: Active Protocol: Document 02/22/19 09:03 [facility] (Rec: 02/22/19 09:50 [facility] [id number]) Hip Strength Hip Manual Muscle Testing Right Flexion (L2) 4+ Good+ Extension (S1) 4- Good- Abduction 4 Good External Rotation 4+ Good+ Internal Rotation 4+ Good+ Left Flexion (L2) 4- Good- Extension (S1) 4- Good- Abduction 4- Good- External Rotation 4- Good- Internal Rotation 4 Good Knee Strength Knee Manual Muscle Testing Right Flexion (S2) 5 Normal Extension (L3) 5 Normal Left Flexion (S2) 4+ Good+ Extension (L3) 4 Good Ankle/Foot Strength Ankle and Foot Manual Muscle Testing Right Dorsiflexion (L4) 5 Normal Plantarflexion (S1) 5 Normal Left Dorsiflexion (L4) 5 Normal Plantarflexion (S1) 5 Normal Comments small range PT-OP-Q Treatments Start: 02/19/19 13:43 Freq: Status: Active Protocol: Document 03/11/19 09:51 [facility] (Rec: 03/11/19 12:44 [facility] [id number]) Cardio Equipment Recumbent Elliptical (Biodex) Duration (Minutes) 6 Resistance 4 Seat Position 6 Gym Equipment Shuttle Recovery Unilateral Squats Details B Resistance 32# Shuttle Recovery Platform Stable Reps/Time x15 reps Bilateral Squats Resistance 82 Shuttle Recovery Platform Unstable Reps/Time 2x15 Therapeutic Exercises Supine Exercises bridge Supine Exercise Name focus on core & glute contraction Side bilateral Reps/Minutes 10 Comments w/hands in air Standing Exercises fwd/back Standing Exercise Name resisted walk Side bilateral Equipment Used yellow tband Reps/Minutes 2x20ft ea sidestep Standing Exercise Name resisted Side bilateral Equipment Used yellow tband Reps/Minutes 20ft ea squat Standing Exercise Name at rail Side bilateral Reps/Minutes 2x10 Comments mini-increasing range Manual Therapy Treatment Soft Tissue Mobilization quad Body Location quad Mobilization Type Rolling Intensity/Depth Moderate Body Position Supine ITB Body Location ITB Mobilization Type Rolling Intensity/Depth Moderate Body Position Hooklying Taping KT Body Location for med patellar glide Treatment Focus 3 Ys Type of Tape Kinesio Tape PT-OP-T Assessment and Plan Start: 02/19/19 13:43 Freq: Status: Active Protocol: Document 03/11/19 09:51 [facility] (Rec: 03/11/19 12:44 [facility] [id number]) Physical Therapy Assessment Goals gait Short Term Goal (STG) Pt will walk 1 mile consistantly at least 3x/week without inc of pain greater than 1 point on 10 point scale . STG Duration 03/24/19 Senior Care Goal (LTG) Pt will be able to walk at least 4x/week without inc of L knee pain. LTG Duration 04/24/19 strength Short Term Goal (STG) Pt will be indep with HEP. STG Duration 03/24/19 Supervisor Tower Goal (LTG) Pt will have 5/5 LE strength in order to allow her to progress activity tolerance. LTG Duration 04/24/19 Assessment Summary Assessment Pt tolerated inc in resistance and new exercises without c/o pain in knees but mm working in glute & quads. Physical Therapy Plan Frequency and Duration Frequency of Treatment 2x/Week Duration of Treatment 2 months Plan of Care Start Date 02/22/19 Plan of Care End Date 04/24/19 Next Visit Focus/Plan Next Note Type Treatment Note Next Visit Plan Cont to progress strengthening as tolerated
--- NOTE | 2019-03-15 09:46 | PT.OTN ---
Current Diagnoses Pain in left knee (03/15/19) Physical Therapy Treatment Note PT-OP-A Visit Information Start: 02/19/19 13:43 Freq: Status: Active Protocol: Document 03/15/19 09:07 [facility] (Rec: 03/15/19 09:46 [facility] [id number]) Out-Patient Physical Therapy Visit Information Visit Information Visit Type Treatment Note Visit Start Time 09:04 Visit Stop Time 09:42 Total Visit Minutes 38 Visit Number 7 Number of DINKEY MOTOR OPERATOR Visits 0 PT-OP-B Current Condition Start: 02/19/19 13:43 Freq: Status: Active Protocol: Document 02/22/19 09:03 [facility] (Rec: 02/22/19 09:50 [facility] [id number]) Current Condition History of Current Condition Onset Date chronic years Current Complaints L knee History of Current Condition Pt reports chronic L knee pain and it got worse when she was hiking and twisted it. Pt reports it goes up and down with pain and she injures it and it hurts and starts to slowly get better. Pt reports she has been doing water aerobics and it helps. Pt has it suggested to her by MD to start walking for BP. Pt reports pain at night that makes sleeping difficult. Prior Treatments and Tests Xray showed moderate arthritis Treatment Goals Patient/Caregiver Goals Start walking and maybe be able to progress to being able to walk with PT-OP-C Subjective Start: 02/19/19 13:43 Freq: Status: Active Protocol: Document 03/15/19 09:07 [facility] (Rec: 03/15/19 09:46 [facility] [id number]) OP-PT Subjective Patient Comments Patient Comments Reports she has not been doing walks but has been doing exercsies. She thinks tape helps. Exercises are getting easier PT-OP-F Manual Assessment Start: 02/19/19 13:43 Freq: Status: Active Protocol: Document 02/22/19 09:03 [facility] (Rec: 02/22/19 09:50 [facility] [id number]) Manual Assessments Soft Tissue Assessment Soft Tissue Mobility Assessment STM to all LE muscles & joint line Joint Mobility Assessment Joint Mobility Assessment pronation L>R PT-OP-G Mobility & Gait Start: 02/19/19 13:43 Freq: Status: Active Protocol: Document 02/22/19 09:03 [facility] (Rec: 02/22/19 09:50 [facility] [id number]) OP Gait Assessment Comments Gait Comments Pt has dec post depression & ant elevation B PT-OP-J Posture/Palpation/Skin Start: 02/19/19 13:43 Freq: Status: Active Protocol: Document 02/22/19 09:03 [facility] (Rec: 02/22/19 09:50 [facility] [id number]) Posture Evaluation [facility] Postural Classification System [facility] Postural Classifications Anterior/Posterior PT-OP-K Range of Motion Start: 02/19/19 13:43 Freq: Status: Active Protocol: Document 02/22/19 09:03 [facility] (Rec: 02/22/19 09:50 [facility] [id number]) Knee Goniometric Range of Motion Knee Measured in Degrees Right Patient Position Supine Flexion Active (degrees) 121 Extension Active (degrees) 0 Left Patient Position Supine Flexion Active (degrees) 114 Extension Active (degrees) 8 PT-OP-L Special Tests Start: 02/19/19 13:43 Freq: Status: Active Protocol: Document 02/22/19 09:03 [facility] (Rec: 02/22/19 09:50 [facility] [id number]) Special Tests Knee Special Tests Varus- 25 Degrees Test Results neg Valgus- 25 Degrees Test Results neg Greyson Test Test Results positive L Tina's Test Results neg Posterior Draw Test Results neg PT-OP-M Strength Start: 02/19/19 13:43 Freq: Status: Active Protocol: Document 02/22/19 09:03 [facility] (Rec: 02/22/19 09:50 [facility] [id number]) Hip Strength Hip Manual Muscle Testing Right Flexion (L2) 4+ Good+ Extension (S1) 4- Good- Abduction 4 Good External Rotation 4+ Good+ Internal Rotation 4+ Good+ Left Flexion (L2) 4- Good- Extension (S1) 4- Good- Abduction 4- Good- External Rotation 4- Good- Internal Rotation 4 Good Knee Strength Knee Manual Muscle Testing Right Flexion (S2) 5 Normal Extension (L3) 5 Normal Left Flexion (S2) 4+ Good+ Extension (L3) 4 Good Ankle/Foot Strength Ankle and Foot Manual Muscle Testing Right Dorsiflexion (L4) 5 Normal Plantarflexion (S1) 5 Normal Left Dorsiflexion (L4) 5 Normal Plantarflexion (S1) 5 Normal Comments small range PT-OP-Q Treatments Start: 02/19/19 13:43 Freq: Status: Active Protocol: Document 03/15/19 09:07 [facility] (Rec: 03/15/19 09:46 [facility] [id number]) Cardio Equipment Recumbent Elliptical (Biodex) Duration (Minutes) 6 Resistance 4-5 Seat Position 6 Gym Equipment Shuttle Recovery Unilateral Squats Details B Resistance 37# Shuttle Recovery Platform Stable Reps/Time x15 reps Bilateral Squats Resistance 82 Shuttle Recovery Platform Unstable Reps/Time 2x15 Therapeutic Exercises Prone Exercises ext Prone Exercise Name alt Side bilateral Reps/Minutes 10x2 Standing Exercises lunges Standing Exercise Name mini Side bilateral Reps/Minutes 10 fwd/back Standing Exercise Name resisted walk Side bilateral Equipment Used yellow tband Reps/Minutes 2x20ft ea sidestep Standing Exercise Name resisted Side bilateral Equipment Used yellow tband Reps/Minutes 20ft ea squat Standing Exercise Name rail as needed Side bilateral Reps/Minutes 2x10 Comments focus on knee position Manual Therapy Treatment Soft Tissue Mobilization HS/calf Body Location HS & calf lat Mobilization Type Rolling quad Body Location quad Mobilization Type Rolling Intensity/Depth Moderate Body Position Supine ITB Body Location ITB Mobilization Type Rolling Intensity/Depth Moderate Body Position Hooklying PT-OP-T Assessment and Plan Start: 02/19/19 13:43 Freq: Status: Active Protocol: Document 03/15/19 09:07 [facility] (Rec: 03/15/19 09:46 [facility] [id number]) Physical Therapy Assessment Goals gait Short Term Goal (STG) Pt will walk 1 mile consistantly at least 3x/week without inc of pain greater than 1 point on 10 point scale . STG Duration 03/24/19 Antique Collector Goal (LTG) Pt will be able to walk at least 4x/week without inc of L knee pain. LTG Duration 04/24/19 strength Short Term Goal (STG) Pt will be indep with HEP. STG Duration 03/24/19 Antique Collector Goal (LTG) Pt will have 5/5 LE strength in order to allow her to progress activity tolerance. LTG Duration 04/24/19 Assessment Summary Assessment Pt required cueing for knee position during squats and lunges. Unable to do inc in resistance with leg press yet but is doing deeper standing squat. Physical Therapy Plan Frequency and Duration Frequency of Treatment 2x/Week Duration of Treatment 2 months Plan of Care Start Date 02/22/19 Plan of Care End Date 04/24/19 Next Visit Focus/Plan Next Note Type Treatment Note Next Visit Plan Cont to progress strengthening as tolerated
--- NOTE | 2019-03-17 10:15 | PT.OTN ---
Current Diagnoses Pain in left knee (03/15/19) Physical Therapy Treatment Note PT-OP-A Visit Information Start: 02/19/19 13:43 Freq: Status: Active Protocol: Document 03/17/19 10:15 [facility] (Rec: 03/17/19 13:01 [facility] [id number]) Out-Patient Physical Therapy Visit Information Visit Information Visit Type Aquatic Treatment Note Visit Start Time 10:15 Visit Stop Time 11:00 Total Visit Minutes 45 Visit Number 8 Number of GENERAL CONTRACTOR Visits 0 Evaluation Information Evaluation Date 02/22/19 PT-OP-B Current Condition Start: 02/19/19 13:43 Freq: Status: Active Protocol: Document 02/22/19 09:03 [facility] (Rec: 02/22/19 09:50 [facility] [id number]) Current Condition History of Current Condition Onset Date chronic years Current Complaints L knee History of Current Condition Pt reports chronic L knee pain and it got worse when she was hiking and twisted it. Pt reports it goes up and down with pain and she injures it and it hurts and starts to slowly get better. Pt reports she has been doing water aerobics and it helps. Pt has it suggested to her by MD to start walking for BP. Pt reports pain at night that makes sleeping difficult. Prior Treatments and Tests Xray showed moderate arthritis Treatment Goals Patient/Caregiver Goals Start walking and maybe be able to progress to being able to walk with PT-OP-C Subjective Start: 02/19/19 13:43 Freq: Status: Active Protocol: Document 03/17/19 10:15 [facility] (Rec: 03/17/19 13:01 [facility] [id number]) OP-PT Subjective Patient Comments Patient Comments She feels the taping has been helping her. She would like to be able to walk more. PT-OP-F Manual Assessment Start: 02/19/19 13:43 Freq: Status: Active Protocol: Document 02/22/19 09:03 [facility] (Rec: 02/22/19 09:50 [facility] [id number]) Manual Assessments Soft Tissue Assessment Soft Tissue Mobility Assessment STM to all LE muscles & joint line Joint Mobility Assessment Joint Mobility Assessment pronation L>R PT-OP-G Mobility & Gait Start: 02/19/19 13:43 Freq: Status: Active Protocol: Document 02/22/19 09:03 [facility] (Rec: 02/22/19 09:50 [facility] [id number]) OP Gait Assessment Comments Gait Comments Pt has dec post depression & ant elevation B PT-OP-J Posture/Palpation/Skin Start: 02/19/19 13:43 Freq: Status: Active Protocol: Document 02/22/19 09:03 [facility] (Rec: 02/22/19 09:50 [facility] [id number]) Posture Evaluation [facility] Postural Classification System Tari Postural Classifications Anterior/Posterior PT-OP-K Range of Motion Start: 02/19/19 13:43 Freq: Status: Active Protocol: Document 02/22/19 09:03 [facility] (Rec: 02/22/19 09:50 [facility] [id number]) Knee Goniometric Range of Motion Knee Measured in Degrees Right Patient Position Supine Flexion Active (degrees) 121 Extension Active (degrees) 0 Left Patient Position Supine Flexion Active (degrees) 114 Extension Active (degrees) 8 PT-OP-L Special Tests Start: 02/19/19 13:43 Freq: Status: Active Protocol: Document 02/22/19 09:03 [facility] (Rec: 02/22/19 09:50 [facility] [id number]) Special Tests Knee Special Tests Varus- 25 Degrees Test Results neg Valgus- 25 Degrees Test Results neg Greyson Test Test Results positive L Tina's Test Results neg Posterior Draw Test Results neg PT-OP-M Strength Start: 02/19/19 13:43 Freq: Status: Active Protocol: Document 02/22/19 09:03 [facility] (Rec: 02/22/19 09:50 [facility] [id number]) Hip Strength Hip Manual Muscle Testing Right Flexion (L2) 4+ Good+ Extension (S1) 4- Good- Abduction 4 Good External Rotation 4+ Good+ Internal Rotation 4+ Good+ Left Flexion (L2) 4- Good- Extension (S1) 4- Good- Abduction 4- Good- External Rotation 4- Good- Internal Rotation 4 Good Knee Strength Knee Manual Muscle Testing Right Flexion (S2) 5 Normal Extension (L3) 5 Normal Left Flexion (S2) 4+ Good+ Extension (L3) 4 Good Ankle/Foot Strength Ankle and Foot Manual Muscle Testing Right Dorsiflexion (L4) 5 Normal Plantarflexion (S1) 5 Normal Left Dorsiflexion (L4) 5 Normal Plantarflexion (S1) 5 Normal Comments small range PT-OP-S Aquatic Treatment Start: 03/17/19 12:42 Freq: Status: Active Protocol: Document 03/17/19 10:15 [facility] (Rec: 03/17/19 13:01 [facility] [id number]) Aquatics Treatment Pool Entry/Exit Pool Entry/Exit Method Stairs Assistance Independent Water Walking Sideways Water Level Chest Level Comments 2 laps each direction Backwards Water Level Chest Level Comments 2 laps Forwards Water Level Chest Level Comments 2 laps Lower Extremity Exercises 3 Details Step-ups Body Position Standing Water Level Chest Level Reps/Duration 3 x10 reps bilateral 2 Details hip abduction Body Position Standing Water Level Chest Level Reps/Duration 10 reps, bilateral Comments holding wall 1 Details hip flex/ext Body Position Standing Water Level Chest Level Reps/Duration 10 Comments holding wall Spinal Exercises 1 Details core stab,holding UE floats under water Body Position Standing Water Level Neck Level Equipment purple dumbell float Reps/Duration 8 reps with holds of 10 sec each [place] Activities [place] Activities Bicycle Bicycle Backwards Equipment blue float Duration 5 min each PT-OP-T Assessment and Plan Start: 02/19/19 13:43 Freq: Status: Active Protocol: Document 03/17/19 10:15 [facility] (Rec: 03/17/19 13:01 [facility] [id number]) Physical Therapy Assessment Goals gait Impairment limited walking ability Short Term Goal (STG) Pt will walk 1 mile consistantly at least 3x/week without inc of pain greater than 1 point on 10 point scale . STG Duration 03/24/19 Intermediate Goal (LTG) Pt will be able to walk at least 4x/week without inc of L knee pain. LTG Duration 04/24/19 strength Impairment Impaired strength Short Term Goal (STG) Pt will be indep with HEP. STG Duration 03/24/19 Intermediate Goal (LTG) Pt will have 5/5 LE strength in order to allow her to progress activity tolerance. LTG Duration 04/24/19 Progress Towards Goals Progress Towards Goals Progressing Toward Goals Assessment Summary Assessment Pt attended her first pool exercise session with good tolerance. Fatigue noted with exercises but no increase in pain. Floating performed between exercises as rest breaks. Pt still has black kinesiotape on during this visit. Physical Therapy Plan Frequency and Duration Frequency of Treatment 2x/Week Duration of Treatment 2 months Plan of Care Start Date 02/22/19 Plan of Care End Date 04/24/19 Next Visit Focus/Plan Next Note Type Treatment Note Next Visit Plan monitor response to new pool exercises, continue pool and land therapy
--- NOTE | 2019-03-23 10:07 | PT.OTN ---
Current Diagnoses Pain in left knee (03/23/19) Physical Therapy Treatment Note PT-OP-A Visit Information Start: 02/19/19 13:43 Freq: Status: Active Protocol: Document 03/23/19 09:09 [facility] (Rec: 03/23/19 10:07 [facility] [id number]) Out-Patient Physical Therapy Visit Information Visit Information Visit Type Treatment Note Visit Start Time 09:00 Visit Stop Time 09:40 Total Visit Minutes 40 Visit Number 9 Number of BRAND MARKETING COORDINATOR Visits 0 PT-OP-B Current Condition Start: 02/19/19 13:43 Freq: Status: Active Protocol: Document 02/22/19 09:03 [facility] (Rec: 02/22/19 09:50 [facility] [id number]) Current Condition History of Current Condition Onset Date chronic years Current Complaints L knee History of Current Condition Pt reports chronic L knee pain and it got worse when she was hiking and twisted it. Pt reports it goes up and down with pain and she injures it and it hurts and starts to slowly get better. Pt reports she has been doing water aerobics and it helps. Pt has it suggested to her by MD to start walking for BP. Pt reports pain at night that makes sleeping difficult. Prior Treatments and Tests Xray showed moderate arthritis Treatment Goals Patient/Caregiver Goals Start walking and maybe be able to progress to being able to walk with PT-OP-C Subjective Start: 02/19/19 13:43 Freq: Status: Active Protocol: Document 03/23/19 09:09 [facility] (Rec: 03/23/19 10:07 [facility] [id number]) OP-PT Subjective Patient Comments Patient Comments Reports less sharp pain. Notes she feels like the pool was easier. wants to progress her walking. No pain at night anymore. PT-OP-F Manual Assessment Start: 02/19/19 13:43 Freq: Status: Active Protocol: Document 02/22/19 09:03 [facility] (Rec: 02/22/19 09:50 [facility] [id number]) Manual Assessments Soft Tissue Assessment Soft Tissue Mobility Assessment STM to all LE muscles & joint line Joint Mobility Assessment Joint Mobility Assessment pronation L>R PT-OP-G Mobility & Gait Start: 02/19/19 13:43 Freq: Status: Active Protocol: Document 02/22/19 09:03 [facility] (Rec: 02/22/19 09:50 [facility] [id number]) OP Gait Assessment Comments Gait Comments Pt has dec post depression & ant elevation B PT-OP-J Posture/Palpation/Skin Start: 02/19/19 13:43 Freq: Status: Active Protocol: Document 02/22/19 09:03 [facility] (Rec: 02/22/19 09:50 [facility] [id number]) Posture Evaluation [facility] Postural Classification System Tari Postural Classifications Anterior/Posterior PT-OP-K Range of Motion Start: 02/19/19 13:43 Freq: Status: Active Protocol: Document 02/22/19 09:03 [facility] (Rec: 02/22/19 09:50 [facility] [id number]) Knee Goniometric Range of Motion Knee Measured in Degrees Right Patient Position Supine Flexion Active (degrees) 121 Extension Active (degrees) 0 Left Patient Position Supine Flexion Active (degrees) 114 Extension Active (degrees) 8 PT-OP-L Special Tests Start: 02/19/19 13:43 Freq: Status: Active Protocol: Document 02/22/19 09:03 [facility] (Rec: 02/22/19 09:50 [facility] [id number]) Special Tests Knee Special Tests Varus- 25 Degrees Test Results neg Valgus- 25 Degrees Test Results neg Greyson Test Test Results positive L Tina's Test Results neg Posterior Draw Test Results neg PT-OP-M Strength Start: 02/19/19 13:43 Freq: Status: Active Protocol: Document 02/22/19 09:03 [facility] (Rec: 02/22/19 09:50 [facility] [id number]) Hip Strength Hip Manual Muscle Testing Right Flexion (L2) 4+ Good+ Extension (S1) 4- Good- Abduction 4 Good External Rotation 4+ Good+ Internal Rotation 4+ Good+ Left Flexion (L2) 4- Good- Extension (S1) 4- Good- Abduction 4- Good- External Rotation 4- Good- Internal Rotation 4 Good Knee Strength Knee Manual Muscle Testing Right Flexion (S2) 5 Normal Extension (L3) 5 Normal Left Flexion (S2) 4+ Good+ Extension (L3) 4 Good Ankle/Foot Strength Ankle and Foot Manual Muscle Testing Right Dorsiflexion (L4) 5 Normal Plantarflexion (S1) 5 Normal Left Dorsiflexion (L4) 5 Normal Plantarflexion (S1) 5 Normal Comments small range PT-OP-Q Treatments Start: 02/19/19 13:43 Freq: Status: Active Protocol: Document 03/23/19 09:09 [facility] (Rec: 03/23/19 10:07 [facility] [id number]) Cardio Equipment Recumbent Elliptical (Biodex) Duration (Minutes) 6 Resistance 6 Seat Position 6 Gym Equipment Shuttle Recovery Unilateral Squats Details B Resistance 50# Shuttle Recovery Platform Stable Reps/Time 2x15 reps Bilateral Squats Resistance 100 Shuttle Recovery Platform Unstable Reps/Time 2x15 Shuttle Balance red clips Details WBOS fwd & side; NBOS fwd Gait Training Gait Activity stairs Description focus on core & upright body posture Comments reciprocal up/down stairs walking Description focus on push off Manual Therapy Treatment Soft Tissue Mobilization HS/calf Body Location HS Mobilization Type Rolling ant knee Body Location ant knee Mobilization Type Myofascial Release Neuro Re-Education Treatment Balance Activities SLS Details SLS PT-OP-S Aquatic Treatment Start: 03/17/19 12:42 Freq: Status: Active Protocol: Document 03/17/19 10:15 [facility] (Rec: 03/17/19 13:01 [facility] [id number]) Aquatics Treatment Pool Entry/Exit Pool Entry/Exit Method Stairs Assistance Independent Water Walking Sideways Water Level Chest Level Comments 2 laps each direction Backwards Water Level Chest Level Comments 2 laps Forwards Water Level Chest Level Comments 2 laps Lower Extremity Exercises 3 Details Step-ups Body Position Standing Water Level Chest Level Reps/Duration 3 x10 reps bilateral 2 Details hip abduction Body Position Standing Water Level Chest Level Reps/Duration 10 reps, bilateral Comments holding wall 1 Details hip flex/ext Body Position Standing Water Level Chest Level Reps/Duration 10 Comments holding wall Spinal Exercises 1 Details core stab,holding UE floats under water Body Position Standing Water Level Neck Level Equipment purple dumbell float Reps/Duration 8 reps with holds of 10 sec each Amo Activities Amo Activities Bicycle Bicycle Backwards Equipment blue float Duration 5 min each PT-OP-T Assessment and Plan Start: 02/19/19 13:43 Freq: Status: Active Protocol: Document 03/23/19 09:09 [facility] (Rec: 03/23/19 10:07 [facility] [id number]) Physical Therapy Assessment Goals gait Impairment limited walking ability Short Term Goal (STG) Pt will walk 1 mile consistantly at least 3x/week without inc of pain greater than 1 point on 10 point scale . STG Duration 03/24/19 Retirement Goal (LTG) Pt will be able to walk at least 4x/week without inc of L knee pain. LTG Duration 04/24/19 strength Impairment Impaired strength Short Term Goal (STG) Pt will be indep with HEP. STG Duration 03/24/19 Children'S Service Worker Goal (LTG) Pt will have 5/5 LE strength in order to allow her to progress activity tolerance. LTG Duration 04/24/19 Assessment Summary Assessment Pt able to do stairs and gait with less pain with cueing. SHe had difficulty with balance but was able to improve with practice. Physical Therapy Plan Frequency and Duration Frequency of Treatment 2x/Week Duration of Treatment 2 months Plan of Care Start Date 02/22/19 Plan of Care End Date 04/24/19 Next Visit Focus/Plan Next Note Type Treatment Note Next Visit Plan Advance balance & glute strength
--- NOTE | 2019-03-25 10:57 | PT.OTN ---
Current Diagnoses Pain in left knee (03/25/19) Physical Therapy Treatment Note PT-OP-A Visit Information Start: 02/19/19 13:43 Freq: Status: Active Protocol: Document 03/25/19 09:07 [facility] (Rec: 03/25/19 10:57 [facility] [id number]) Out-Patient Physical Therapy Visit Information Visit Information Visit Type Treatment Note Visit Start Time 09:00 Visit Stop Time 09:40 Total Visit Minutes 40 Visit Number 10 Number of NAV[employer] G[employer] SPOTTER Visits 0 PT-OP-B Current Condition Start: 02/19/19 13:43 Freq: Status: Active Protocol: Document 02/22/19 09:03 [facility] (Rec: 02/22/19 09:50 [facility] [id number]) Current Condition History of Current Condition Onset Date chronic years Current Complaints L knee History of Current Condition Pt reports chronic L knee pain and it got worse when she was hiking and twisted it. Pt reports it goes up and down with pain and she injures it and it hurts and starts to slowly get better. Pt reports she has been doing water aerobics and it helps. Pt has it suggested to her by MD to start walking for BP. Pt reports pain at night that makes sleeping difficult. Prior Treatments and Tests Xray showed moderate arthritis Treatment Goals Patient/Caregiver Goals Start walking and maybe be able to progress to being able to walk with PT-OP-C Subjective Start: 02/19/19 13:43 Freq: Status: Active Protocol: Document 03/25/19 09:07 [facility] (Rec: 03/25/19 10:57 [facility] [id number]) OP-PT Subjective Patient Comments Patient Comments Pt reports fatigue in ankles after last session. PT-OP-F Manual Assessment Start: 02/19/19 13:43 Freq: Status: Active Protocol: Document 02/22/19 09:03 [facility] (Rec: 02/22/19 09:50 [facility] [id number]) Manual Assessments Soft Tissue Assessment Soft Tissue Mobility Assessment STM to all LE muscles & joint line Joint Mobility Assessment Joint Mobility Assessment pronation L>R PT-OP-G Mobility & Gait Start: 02/19/19 13:43 Freq: Status: Active Protocol: Document 02/22/19 09:03 [facility] (Rec: 02/22/19 09:50 [facility] [id number]) OP Gait Assessment Comments Gait Comments Pt has dec post depression & ant elevation B PT-OP-J Posture/Palpation/Skin Start: 02/19/19 13:43 Freq: Status: Active Protocol: Document 02/22/19 09:03 [facility] (Rec: 02/22/19 09:50 [facility] [id number]) Posture Evaluation [facility] Postural Classification System [facility] Postural Classifications Anterior/Posterior PT-OP-K Range of Motion Start: 02/19/19 13:43 Freq: Status: Active Protocol: Document 02/22/19 09:03 [facility] (Rec: 02/22/19 09:50 [facility] [id number]) Knee Goniometric Range of Motion Knee Measured in Degrees Right Patient Position Supine Flexion Active (degrees) 121 Extension Active (degrees) 0 Left Patient Position Supine Flexion Active (degrees) 114 Extension Active (degrees) 8 PT-OP-L Special Tests Start: 02/19/19 13:43 Freq: Status: Active Protocol: Document 02/22/19 09:03 [facility] (Rec: 02/22/19 09:50 [facility] [id number]) Special Tests Knee Special Tests Varus- 25 Degrees Test Results neg Valgus- 25 Degrees Test Results neg Greyson Test Test Results positive L Tina's Test Results neg Posterior Draw Test Results neg PT-OP-M Strength Start: 02/19/19 13:43 Freq: Status: Active Protocol: Document 02/22/19 09:03 [facility] (Rec: 02/22/19 09:50 [facility] [id number]) Hip Strength Hip Manual Muscle Testing Right Flexion (L2) 4+ Good+ Extension (S1) 4- Good- Abduction 4 Good External Rotation 4+ Good+ Internal Rotation 4+ Good+ Left Flexion (L2) 4- Good- Extension (S1) 4- Good- Abduction 4- Good- External Rotation 4- Good- Internal Rotation 4 Good Knee Strength Knee Manual Muscle Testing Right Flexion (S2) 5 Normal Extension (L3) 5 Normal Left Flexion (S2) 4+ Good+ Extension (L3) 4 Good Ankle/Foot Strength Ankle and Foot Manual Muscle Testing Right Dorsiflexion (L4) 5 Normal Plantarflexion (S1) 5 Normal Left Dorsiflexion (L4) 5 Normal Plantarflexion (S1) 5 Normal Comments small range PT-OP-Q Treatments Start: 02/19/19 13:43 Freq: Status: Active Protocol: Document 03/25/19 09:07 [facility] (Rec: 03/25/19 10:57 [facility] [id number]) Cardio Equipment Recumbent Elliptical (Biodex) Duration (Minutes) 6 Resistance 6 Seat Position 6 Gym Equipment Shuttle Recovery Unilateral Squats Details B Resistance 62# Shuttle Recovery Platform Stable Reps/Time 2x15 reps Bilateral Squats Resistance 112 Shuttle Recovery Platform Unstable Reps/Time 2x15 Shuttle Balance red clips Details fwd &side:WBOS & NBOS; fwd staggered stance Therapeutic Exercises Standing Exercises fwd/back Standing Exercise Name resisted walk Side bilateral Equipment Used yellow tband Reps/Minutes 2x20ft ea sidestep Standing Exercise Name resisted Side bilateral Equipment Used yellow tband Reps/Minutes 20ft x2ea Manual Therapy Treatment Soft Tissue Mobilization ant knee Body Location ant knee Mobilization Type Myofascial Release Comments med gliding Neuro Re-Education Treatment Balance Activities bosu Details step ups with rail prn Reps/Duration 10 B PT-OP-S Aquatic Treatment Start: 03/17/19 12:42 Freq: Status: Active Protocol: Document 03/17/19 10:15 [facility] (Rec: 03/17/19 13:01 [facility] [id number]) Aquatics Treatment Pool Entry/Exit Pool Entry/Exit Method Stairs Assistance Independent Water Walking Sideways Water Level Chest Level Comments 2 laps each direction Backwards Water Level Chest Level Comments 2 laps Forwards Water Level Chest Level Comments 2 laps Lower Extremity Exercises 3 Details Step-ups Body Position Standing Water Level Chest Level Reps/Duration 3 x10 reps bilateral 2 Details hip abduction Body Position Standing Water Level Chest Level Reps/Duration 10 reps, bilateral Comments holding wall 1 Details hip flex/ext Body Position Standing Water Level Chest Level Reps/Duration 10 Comments holding wall Spinal Exercises 1 Details core stab,holding UE floats under water Body Position Standing Water Level Neck Level Equipment purple dumbell float Reps/Duration 8 reps with holds of 10 sec each [place] Activities [place] Activities Bicycle Bicycle Backwards Equipment blue float Duration 5 min each PT-OP-T Assessment and Plan Start: 02/19/19 13:43 Freq: Status: Active Protocol: Document 03/25/19 09:07 [facility] (Rec: 03/25/19 10:57 [facility] [id number]) Physical Therapy Assessment Goals gait Impairment limited walking ability Short Term Goal (STG) Pt will walk 1 mile consistantly at least 3x/week without inc of pain greater than 1 point on 10 point scale . STG Duration 03/24/19 Administrative Secretary Goal (LTG) Pt will be able to walk at least 4x/week without inc of L knee pain. LTG Duration 04/24/19 strength Impairment Impaired strength Short Term Goal (STG) Pt will be indep with HEP. STG Duration 03/24/19 Administrative Secretary Goal (LTG) Pt will have 5/5 LE strength in order to allow her to progress activity tolerance. LTG Duration 04/24/19 Assessment Summary Assessment Pt improving with balance and was able to tolerate step ups to bosu w/o pain. Required cueing for posture during side stepping. Physical Therapy Plan Frequency and Duration Frequency of Treatment 2x/Week Duration of Treatment 2 months Plan of Care Start Date 02/22/19 Plan of Care End Date 04/24/19 Next Visit Focus/Plan Next Note Type Treatment Note Next Visit Plan Advance balance & glute strength; retest strength
--- NOTE | 2019-03-29 09:51 | PT.OTN ---
Current Diagnoses Pain in left knee (03/29/19) Physical Therapy Treatment Note PT-OP-A Visit Information Start: 02/19/19 13:43 Freq: Status: Active Protocol: Document 03/29/19 09:03 [facility] (Rec: 03/29/19 09:08 [facility] [id number]) Out-Patient Physical Therapy Visit Information Visit Information Visit Type Treatment Note Visit Start Time 09:00 Visit Stop Time 09:40 Total Visit Minutes 40 Visit Number 11 Number of LIFE SCIENCES INSTRUCTOR Visits 0 PT-OP-B Current Condition Start: 02/19/19 13:43 Freq: Status: Active Protocol: Document 02/22/19 09:03 [facility] (Rec: 02/22/19 09:50 [facility] [id number]) Current Condition History of Current Condition Onset Date chronic years Current Complaints L knee History of Current Condition Pt reports chronic L knee pain and it got worse when she was hiking and twisted it. Pt reports it goes up and down with pain and she injures it and it hurts and starts to slowly get better. Pt reports she has been doing water aerobics and it helps. Pt has it suggested to her by MD to start walking for BP. Pt reports pain at night that makes sleeping difficult. Prior Treatments and Tests Xray showed moderate arthritis Treatment Goals Patient/Caregiver Goals Start walking and maybe be able to progress to being able to walk with PT-OP-C Subjective Start: 02/19/19 13:43 Freq: Status: Active Protocol: Document 03/29/19 09:03 [facility] (Rec: 03/29/19 09:08 [facility] [id number]) OP-PT Subjective Patient Comments Patient Comments Pt reports she was able to keep up with her husand on a walk and walked 20 [address] to a festial then walked 20 blocks back. Notes she did her exercises prior to warm up. Patient Reported Progress Improving PT-OP-F Manual Assessment Start: 02/19/19 13:43 Freq: Status: Active Protocol: Document 02/22/19 09:03 [facility] (Rec: 02/22/19 09:50 [facility] [id number]) Manual Assessments Soft Tissue Assessment Soft Tissue Mobility Assessment STM to all LE muscles & joint line Joint Mobility Assessment Joint Mobility Assessment pronation L>R PT-OP-G Mobility & Gait Start: 02/19/19 13:43 Freq: Status: Active Protocol: Document 02/22/19 09:03 [facility] (Rec: 02/22/19 09:50 [facility] [id number]) OP Gait Assessment Comments Gait Comments Pt has dec post depression & ant elevation B PT-OP-J Posture/Palpation/Skin Start: 02/19/19 13:43 Freq: Status: Active Protocol: Document 02/22/19 09:03 [facility] (Rec: 02/22/19 09:50 [facility] [id number]) Posture Evaluation [facility] Postural Classification System [facility] Postural Classifications Anterior/Posterior PT-OP-K Range of Motion Start: 02/19/19 13:43 Freq: Status: Active Protocol: Document 02/22/19 09:03 [facility] (Rec: 02/22/19 09:50 [facility] [id number]) Knee Goniometric Range of Motion Knee Measured in Degrees Right Patient Position Supine Flexion Active (degrees) 121 Extension Active (degrees) 0 Left Patient Position Supine Flexion Active (degrees) 114 Extension Active (degrees) 8 PT-OP-L Special Tests Start: 02/19/19 13:43 Freq: Status: Active Protocol: Document 02/22/19 09:03 [facility] (Rec: 02/22/19 09:50 [facility] [id number]) Special Tests Knee Special Tests Varus- 25 Degrees Test Results neg Valgus- 25 Degrees Test Results neg Greyson Test Test Results positive L Tina's Test Results neg Posterior Draw Test Results neg PT-OP-M Strength Start: 02/19/19 13:43 Freq: Status: Active Protocol: Document 03/29/19 09:03 [facility] (Rec: 03/29/19 09:49 [facility] [id number]) Hip Strength Hip Manual Muscle Testing Right Flexion (L2) 4+ Good+ Extension (S1) 4+ Good+ Abduction 5 Normal Adduction 5 Normal External Rotation 5 Normal Internal Rotation 5 Normal Left Flexion (L2) 4+ Good+ Extension (S1) 4+ Good+ Abduction 4+ Good+ Adduction 5 Normal External Rotation 4+ Good+ Internal Rotation 4+ Good+ Knee Strength Knee Manual Muscle Testing Right Flexion (S2) 5 Normal Extension (L3) 5 Normal Left Flexion (S2) 4+ Good+ Extension (L3) 4 Good Ankle/Foot Strength Ankle and Foot Manual Muscle Testing Right Dorsiflexion (L4) 5 Normal Plantarflexion (S1) 5 Normal Left Dorsiflexion (L4) 5 Normal Plantarflexion (S1) 5 Normal PT-OP-Q Treatments Start: 02/19/19 13:43 Freq: Status: Active Protocol: Document 03/29/19 09:03 [facility] (Rec: 03/29/19 09:49 [facility] [id number]) Cardio Equipment Recumbent Elliptical (Biodex) Duration (Minutes) 7 Resistance 6 Seat Position 6 Gym Equipment Shuttle Recovery Unilateral Squats Details B Resistance 62# Shuttle Recovery Platform Stable Reps/Time 2x15 reps Bilateral Squats Resistance 112 Shuttle Recovery Platform Unstable Reps/Time 2x15 Shuttle Balance red clips Details fwd &side:WBOS & NBOS; fwd staggered stance Therapeutic Exercises Standing Exercises lunges Standing Exercise Name mini walking Side bilateral Reps/Minutes 2x20ft fwd/back Standing Exercise Name resisted walk Side bilateral Equipment Used red tband Reps/Minutes 2x20ft ea sidestep Standing Exercise Name resisted w/ squat Side bilateral Equipment Used red tband Reps/Minutes 20ft Manual Therapy Treatment Soft Tissue Mobilization HS/calf Body Location HS Mobilization Type Rolling ant knee Body Location ant knee Mobilization Type Myofascial Release Comments med gliding Joint Mobilizations patell Joint PF Direction med, sup, inf Neuro Re-Education Treatment Balance Activities bosu Details step ups with rail prn Reps/Duration 10 B PT-OP-S Aquatic Treatment Start: 03/17/19 12:42 Freq: Status: Active Protocol: Document 03/17/19 10:15 [facility] (Rec: 03/17/19 13:01 [facility] [id number]) Aquatics Treatment Pool Entry/Exit Pool Entry/Exit Method Stairs Assistance Independent Water Walking Sideways Water Level Chest Level Comments 2 laps each direction Backwards Water Level Chest Level Comments 2 laps Forwards Water Level Chest Level Comments 2 laps Lower Extremity Exercises 3 Details Step-ups Body Position Standing Water Level Chest Level Reps/Duration 3 x10 reps bilateral 2 Details hip abduction Body Position Standing Water Level Chest Level Reps/Duration 10 reps, bilateral Comments holding wall 1 Details hip flex/ext Body Position Standing Water Level Chest Level Reps/Duration 10 Comments holding wall Spinal Exercises 1 Details core stab,holding UE floats under water Body Position Standing Water Level Neck Level Equipment purple dumbell float Reps/Duration 8 reps with holds of 10 sec each [place] Activities [place] Activities Bicycle Bicycle Backwards Equipment blue float Duration 5 min each PT-OP-T Assessment and Plan Start: 02/19/19 13:43 Freq: Status: Active Protocol: Document 03/29/19 09:03 [facility] (Rec: 03/29/19 09:08 [facility] [id number]) Physical Therapy Assessment Goals gait Impairment limited walking ability Short Term Goal (STG) Pt will walk 1 mile consistantly at least 3x/week without inc of pain greater than 1 point on 10 point scale . STG Duration 03/24/19 Solid Waste Analyst Goal (LTG) Pt will be able to walk at least 4x/week without inc of L knee pain. LTG Duration 04/24/19 strength Impairment Impaired strength Short Term Goal (STG) Pt will be indep with HEP. STG Duration 03/24/19 Usp Goal (LTG) Pt will have 5/5 LE strength in order to allow her to progress activity tolerance. LTG Duration 04/24/19 Assessment Summary Assessment Pt is improving with tolerance to activity and ability to participate in standing and dynamic strengthening exercises. Physical Therapy Plan Frequency and Duration Frequency of Treatment 2x/Week Duration of Treatment 2 months Plan of Care Start Date 02/22/19 Plan of Care End Date 04/24/19 Next Visit Focus/Plan Next Note Type Treatment Note Next Visit Plan Cont to advance strength & balance
--- NOTE | 2019-03-31 11:45 | PT.OTN ---
Current Diagnoses Pain in left knee (03/31/19) Physical Therapy Treatment Note PT-OP-A Visit Information Start: 02/19/19 13:43 Freq: Status: Active Protocol: Document 03/31/19 11:45 [facility] (Rec: 03/31/19 18:26 [facility] [id number]) Out-Patient Physical Therapy Visit Information Visit Information Visit Type Aquatic Treatment Note Visit Start Time 11:45 Visit Stop Time 12:30 Total Visit Minutes 45 Visit Number 12 Number of FIELD BROOMER Visits 0 Evaluation Information Evaluation Date 02/22/19 PT-OP-B Current Condition Start: 02/19/19 13:43 Freq: Status: Active Protocol: Document 02/22/19 09:03 [facility] (Rec: 02/22/19 09:50 [facility] [id number]) Current Condition History of Current Condition Onset Date chronic years Current Complaints L knee History of Current Condition Pt reports chronic L knee pain and it got worse when she was hiking and twisted it. Pt reports it goes up and down with pain and she injures it and it hurts and starts to slowly get better. Pt reports she has been doing water aerobics and it helps. Pt has it suggested to her by MD to start walking for BP. Pt reports pain at night that makes sleeping difficult. Prior Treatments and Tests Xray showed moderate arthritis Treatment Goals Patient/Caregiver Goals Start walking and maybe be able to progress to being able to walk with PT-OP-C Subjective Start: 02/19/19 13:43 Freq: Status: Active Protocol: Document 03/31/19 11:45 [facility] (Rec: 03/31/19 18:26 [facility] [id number]) OP-PT Subjective Patient Comments Patient Comments She wants to add some balance activities in the pool Patient Reported Progress Improving OP-PT Pain Assessment Location L knee Intensity 3 Scale Used Numeric (1 - 10) PT-OP-F Manual Assessment Start: 02/19/19 13:43 Freq: Status: Active Protocol: Document 02/22/19 09:03 [facility] (Rec: 02/22/19 09:50 [facility] [id number]) Manual Assessments Soft Tissue Assessment Soft Tissue Mobility Assessment STM to all LE muscles & joint line Joint Mobility Assessment Joint Mobility Assessment pronation L>R PT-OP-G Mobility & Gait Start: 02/19/19 13:43 Freq: Status: Active Protocol: Document 02/22/19 09:03 [facility] (Rec: 02/22/19 09:50 [facility] [id number]) OP Gait Assessment Comments Gait Comments Pt has dec post depression & ant elevation B PT-OP-J Posture/Palpation/Skin Start: 02/19/19 13:43 Freq: Status: Active Protocol: Document 02/22/19 09:03 [facility] (Rec: 02/22/19 09:50 [facility] [id number]) Posture Evaluation [facility] Postural Classification System [facility] Postural Classifications Anterior/Posterior PT-OP-K Range of Motion Start: 02/19/19 13:43 Freq: Status: Active Protocol: Document 02/22/19 09:03 [facility] (Rec: 02/22/19 09:50 [facility] [id number]) Knee Goniometric Range of Motion Knee Measured in Degrees Right Patient Position Supine Flexion Active (degrees) 121 Extension Active (degrees) 0 Left Patient Position Supine Flexion Active (degrees) 114 Extension Active (degrees) 8 PT-OP-L Special Tests Start: 02/19/19 13:43 Freq: Status: Active Protocol: Document 02/22/19 09:03 [facility] (Rec: 02/22/19 09:50 [facility] [id number]) Special Tests Knee Special Tests Varus- 25 Degrees Test Results neg Valgus- 25 Degrees Test Results neg Greyson Test Test Results positive L Tina's Test Results neg Posterior Draw Test Results neg PT-OP-M Strength Start: 02/19/19 13:43 Freq: Status: Active Protocol: Document 03/29/19 09:03 [facility] (Rec: 03/29/19 09:49 [facility] [id number]) Hip Strength Hip Manual Muscle Testing Right Flexion (L2) 4+ Good+ Extension (S1) 4+ Good+ Abduction 5 Normal Adduction 5 Normal External Rotation 5 Normal Internal Rotation 5 Normal Left Flexion (L2) 4+ Good+ Extension (S1) 4+ Good+ Abduction 4+ Good+ Adduction 5 Normal External Rotation 4+ Good+ Internal Rotation 4+ Good+ Knee Strength Knee Manual Muscle Testing Right Flexion (S2) 5 Normal Extension (L3) 5 Normal Left Flexion (S2) 4+ Good+ Extension (L3) 4 Good Ankle/Foot Strength Ankle and Foot Manual Muscle Testing Right Dorsiflexion (L4) 5 Normal Plantarflexion (S1) 5 Normal Left Dorsiflexion (L4) 5 Normal Plantarflexion (S1) 5 Normal PT-OP-S Aquatic Treatment Start: 03/17/19 12:42 Freq: Status: Active Protocol: Document 03/31/19 11:45 [facility] (Rec: 03/31/19 18:26 [facility] [id number]) Aquatics Treatment Pool Entry/Exit Pool Entry/Exit Method Stairs Assistance Independent Water Walking Sideways Water Level Chest Level Comments 2 laps each direction Backwards Water Level Chest Level Comments 2 laps Forwards Water Level Chest Level Comments 2 laps Lower Extremity Exercises 4 Details HS curls Body Position Standing Water Level Chest Level Equipment Ankle Floats Reps/Duration 10 reps Comments holding wall 3 Details Step-ups Body Position Standing Water Level Chest Level Reps/Duration 3 x10 reps bilateral 2 Details hip abduction Body Position Standing Water Level Chest Level Equipment Ankle Floats Reps/Duration 10 reps, bilateral Comments holding wall 1 Details hip flex/ext Body Position Standing Water Level Chest Level Equipment Ankle Floats Reps/Duration 10 reps Comments holding wall Lower Extremity Stretches 2 Details Quad Body Position Standing Water Level Chest Level Equipment Ankle Floats Reps/Duration 3 reps each LE Comments holding wall 1 Details Hamstring Body Position Standing Water Level Chest Level Equipment Ankle Floats Reps/Duration 3 reps each LE Comments back to wall Spinal Exercises 1 Details core stab,holding UE floats under water Body Position Standing Water Level Neck Level Equipment purple dumbell float Reps/Duration 5 reps with holds of 10 sec each Balance 2 Details Tandem standing Body Position Standing Water Level Chest Level Reps/Duration 3 reps each LE 1 Details single limb standing Body Position Standing Water Level Chest Level Equipment UE motions Reps/Duration 3 reps each LE [place] Activities [place] Activities Bicycle Equipment blue float Duration 5 min PT-OP-T Assessment and Plan Start: 02/19/19 13:43 Freq: Status: Active Protocol: Document 03/31/19 11:45 [facility] (Rec: 03/31/19 18:26 [facility] [id number]) Physical Therapy Assessment Goals gait Impairment limited walking ability Short Term Goal (STG) Pt will walk 1 mile consistantly at least 3x/week without inc of pain greater than 1 point on 10 point scale . STG Duration 03/24/19 Jail Goal (LTG) Pt will be able to walk at least 4x/week without inc of L knee pain. LTG Duration 04/24/19 strength Impairment Impaired strength Short Term Goal (STG) Pt will be indep with HEP. STG Duration 03/24/19 Purchasing Contracting Clerk Goal (LTG) Pt will have 5/5 LE strength in order to allow her to progress activity tolerance. LTG Duration 04/24/19 Progress Towards Goals Progress Towards Goals Progressing Toward Goals Assessment Summary Assessment She tolerated her pool exercises well today. She reports her knee pain has improved over-all. She was able to advance her exercises with use of ankle floats. Physical Therapy Plan Frequency and Duration Frequency of Treatment 2x/Week Duration of Treatment 2 months Plan of Care Start Date 02/22/19 Plan of Care End Date 04/24/19 Therapeutic Interventions Therapeutic Interventions Aquatic Therapy Balance Training Gait Training Home Exercise Program Joint Mobilizations Manual Therapy Neuromuscular Re-education Patient/Caregiver Education Self-Care/Home Management Soft Tissue Mobilization Taping Therapeutic Activities Therapeutic Exercises Modalities Cold Pack/Ice Massage Electric Stimulation Hot Packs Infrared Therapy Iontophoresis Ultrasound Next Visit Focus/Plan Next Note Type Treatment Note Next Visit Plan Cont to advance strength & balance
--- NOTE | 2019-04-05 10:15 | PT.OTN ---
Current Diagnoses Pain in left knee (04/05/19) Physical Therapy Treatment Note PT-OP-A Visit Information Start: 02/19/19 13:43 Freq: Status: Active Protocol: Document 04/05/19 10:15 DLM (Rec: 04/05/19 16:52 [facility] [id number]) Out-Patient Physical Therapy Visit Information Visit Information Visit Type Aquatic Treatment Note Visit Start Time 10:15 Visit Stop Time 11:00 Total Visit Minutes 45 Visit Number 13 Number of DATA DEVELOPER Visits 0 Evaluation Information Evaluation Date 02/22/19 PT-OP-B Current Condition Start: 02/19/19 13:43 Freq: Status: Active Protocol: Document 02/22/19 09:03 [facility] (Rec: 02/22/19 09:50 [facility] [id number]) Current Condition History of Current Condition Onset Date chronic years Current Complaints L knee History of Current Condition Pt reports chronic L knee pain and it got worse when she was hiking and twisted it. Pt reports it goes up and down with pain and she injures it and it hurts and starts to slowly get better. Pt reports she has been doing water aerobics and it helps. Pt has it suggested to her by MD to start walking for BP. Pt reports pain at night that makes sleeping difficult. Prior Treatments and Tests Xray showed moderate arthritis Treatment Goals Patient/Caregiver Goals Start walking and maybe be able to progress to being able to walk with PT-OP-C Subjective Start: 02/19/19 13:43 Freq: Status: Active Protocol: Document 04/05/19 10:15 DLM (Rec: 04/05/19 16:52 [facility] [id number]) OP-PT Subjective Patient Comments Patient Comments Her knee was sore after last visit but she is not sure it was the pool exercises vs she over-did it at home. Patient Reported Progress Same PT-OP-F Manual Assessment Start: 02/19/19 13:43 Freq: Status: Active Protocol: Document 02/22/19 09:03 [facility] (Rec: 02/22/19 09:50 [facility] [id number]) Manual Assessments Soft Tissue Assessment Soft Tissue Mobility Assessment STM to all LE muscles & joint line Joint Mobility Assessment Joint Mobility Assessment pronation L>R PT-OP-G Mobility & Gait Start: 02/19/19 13:43 Freq: Status: Active Protocol: Document 02/22/19 09:03 [facility] (Rec: 02/22/19 09:50 [facility] [id number]) OP Gait Assessment Comments Gait Comments Pt has dec post depression & ant elevation B PT-OP-J Posture/Palpation/Skin Start: 02/19/19 13:43 Freq: Status: Active Protocol: Document 02/22/19 09:03 [facility] (Rec: 02/22/19 09:50 [facility] [id number]) Posture Evaluation [facility] Postural Classification System [facility] Postural Classifications Anterior/Posterior PT-OP-K Range of Motion Start: 02/19/19 13:43 Freq: Status: Active Protocol: Document 02/22/19 09:03 [facility] (Rec: 02/22/19 09:50 [facility] [id number]) Knee Goniometric Range of Motion Knee Measured in Degrees Right Patient Position Supine Flexion Active (degrees) 121 Extension Active (degrees) 0 Left Patient Position Supine Flexion Active (degrees) 114 Extension Active (degrees) 8 PT-OP-L Special Tests Start: 02/19/19 13:43 Freq: Status: Active Protocol: Document 02/22/19 09:03 [facility] (Rec: 02/22/19 09:50 [facility] [id number]) Special Tests Knee Special Tests Varus- 25 Degrees Test Results neg Valgus- 25 Degrees Test Results neg Greyson Test Test Results positive L Tina's Test Results neg Posterior Draw Test Results neg PT-OP-M Strength Start: 02/19/19 13:43 Freq: Status: Active Protocol: Document 03/29/19 09:03 [facility] (Rec: 03/29/19 09:49 [facility] [id number]) Hip Strength Hip Manual Muscle Testing Right Flexion (L2) 4+ Good+ Extension (S1) 4+ Good+ Abduction 5 Normal Adduction 5 Normal External Rotation 5 Normal Internal Rotation 5 Normal Left Flexion (L2) 4+ Good+ Extension (S1) 4+ Good+ Abduction 4+ Good+ Adduction 5 Normal External Rotation 4+ Good+ Internal Rotation 4+ Good+ Knee Strength Knee Manual Muscle Testing Right Flexion (S2) 5 Normal Extension (L3) 5 Normal Left Flexion (S2) 4+ Good+ Extension (L3) 4 Good Ankle/Foot Strength Ankle and Foot Manual Muscle Testing Right Dorsiflexion (L4) 5 Normal Plantarflexion (S1) 5 Normal Left Dorsiflexion (L4) 5 Normal Plantarflexion (S1) 5 Normal PT-OP-Q Treatments Start: 02/19/19 13:43 Freq: Status: Active Protocol: Document 03/29/19 09:03 [facility] (Rec: 03/29/19 09:49 [facility] [id number]) Cardio Equipment Recumbent Elliptical (Biodex) Duration (Minutes) 7 Resistance 6 Seat Position 6 Gym Equipment Shuttle Recovery Unilateral Squats Details B Resistance 62# Shuttle Recovery Platform Stable Reps/Time 2x15 reps Bilateral Squats Resistance 112 Shuttle Recovery Platform Unstable Reps/Time 2x15 Shuttle Balance red clips Details fwd &side:WBOS & NBOS; fwd staggered stance Therapeutic Exercises Standing Exercises lunges Standing Exercise Name mini walking Side bilateral Reps/Minutes 2x20ft fwd/back Standing Exercise Name resisted walk Side bilateral Equipment Used red tband Reps/Minutes 2x20ft ea sidestep Standing Exercise Name resisted w/ squat Side bilateral Equipment Used red tband Reps/Minutes 20ft Manual Therapy Treatment Soft Tissue Mobilization HS/calf Body Location HS Mobilization Type Rolling ant knee Body Location ant knee Mobilization Type Myofascial Release Comments med gliding Joint Mobilizations patell Joint PF Direction med, sup, inf Neuro Re-Education Treatment Balance Activities bosu Details step ups with rail prn Reps/Duration 10 B PT-OP-S Aquatic Treatment Start: 03/17/19 12:42 Freq: Status: Active Protocol: Document 04/05/19 10:15 [facility] (Rec: 04/05/19 16:52 [facility] [id number]) Aquatics Treatment Pool Entry/Exit Pool Entry/Exit Method Stairs Assistance Independent Water Walking [place] December Water Level Chest Level Comments 2 laps Sideways Water Level Chest Level Comments 2 laps each direction Backwards Water Level Chest Level Comments 2 laps Forwards Water Level Chest Level Comments 2 laps Lower Extremity Exercises 4 Details HS curls Body Position Standing Water Level Chest Level Equipment Ankle Floats Reps/Duration 10 reps Comments holding wall 3 Details Step-ups Body Position Standing Water Level Chest Level Reps/Duration 3 x10 reps bilateral 2 Details hip abduction Body Position Standing Water Level Chest Level Equipment Ankle Floats Reps/Duration 10 reps, bilateral Comments holding wall 1 Details hip flex/ext Body Position Standing Water Level Chest Level Equipment Ankle Floats Reps/Duration 10 reps Comments holding wall Lower Extremity Stretches 2 Details Quad Body Position Standing Water Level Chest Level Equipment Ankle Floats Reps/Duration 3 reps each LE Comments holding wall 1 Details Hamstring Body Position Standing Water Level Chest Level Equipment Ankle Floats Reps/Duration 3 reps each LE Comments back to wall Balance 2 Details Tandem standing Body Position Standing Water Level Chest Level Reps/Duration 3 reps each LE 1 Details single limb standing Body Position Standing Water Level Chest Level Equipment UE motions Reps/Duration 3 reps each LE [place] Activities [place] Activities Bicycle [place] Hip Abduction/Adduction Equipment blue float Duration 2-5 min each PT-OP-T Assessment and Plan Start: 02/19/19 13:43 Freq: Status: Active Protocol: Document 04/05/19 10:15 [facility] (Rec: 04/05/19 16:52 [facility] [id number]) Physical Therapy Assessment Goals gait Impairment limited walking ability Short Term Goal (STG) Pt will walk 1 mile consistantly at least 3x/week without inc of pain greater than 1 point on 10 point scale . STG Duration 03/24/19 Surveying Technician Goal (LTG) Pt will be able to walk at least 4x/week without inc of L knee pain. LTG Duration 04/24/19 strength Impairment Impaired strength Short Term Goal (STG) Pt will be indep with HEP. STG Duration 03/24/19 [facility] Goal (LTG) Pt will have 5/5 LE strength in order to allow her to progress activity tolerance. LTG Duration 04/24/19 Progress Towards Goals Progress Towards Goals Progressing Toward Goals Assessment Summary Assessment She tolerated her pool exercises well today. No increase in pain at this time. Unclear what flared up her pain after last visit. Will continue to monitor pool exercises to make sure she does not get knee irritation. Her pain flare was decreased back down by today and may be related to home activities. Physical Therapy Plan Frequency and Duration Frequency of Treatment 2x/Week Duration of Treatment 2 months Plan of Care Start Date 02/22/19 Plan of Care End Date 04/24/19 Therapeutic Interventions Therapeutic Interventions Aquatic Therapy Balance Training Gait Training Home Exercise Program Joint Mobilizations Manual Therapy Neuromuscular Re-education Patient/Caregiver Education Self-Care/Home Management Soft Tissue Mobilization Taping Therapeutic Activities Therapeutic Exercises Modalities Cold Pack/Ice Massage Electric Stimulation Hot Packs Infrared Therapy Iontophoresis Ultrasound Next Visit Focus/Plan Next Note Type Treatment Note Next Visit Plan Cont to advance strength & balance
--- NOTE | 2019-04-07 09:59 | PT.OTN ---
Current Diagnoses Pain in left knee (04/07/19) Physical Therapy Treatment Note PT-OP-A Visit Information Start: 02/19/19 13:43 Freq: Status: Active Protocol: Document 04/07/19 09:04 [facility] (Rec: 04/07/19 09:59 [facility] [id number]) Out-Patient Physical Therapy Visit Information Visit Information Visit Type Treatment Note Visit Start Time 09:00 Visit Stop Time 09:40 Total Visit Minutes 40 Visit Number 14 Number of DIRECTOR LOAN Visits 0 PT-OP-B Current Condition Start: 02/19/19 13:43 Freq: Status: Active Protocol: Document 02/22/19 09:03 [facility] (Rec: 02/22/19 09:50 [facility] [id number]) Current Condition History of Current Condition Onset Date chronic years Current Complaints L knee History of Current Condition Pt reports chronic L knee pain and it got worse when she was hiking and twisted it. Pt reports it goes up and down with pain and she injures it and it hurts and starts to slowly get better. Pt reports she has been doing water aerobics and it helps. Pt has it suggested to her by MD to start walking for BP. Pt reports pain at night that makes sleeping difficult. Prior Treatments and Tests Xray showed moderate arthritis Treatment Goals Patient/Caregiver Goals Start walking and maybe be able to progress to being able to walk with PT-OP-C Subjective Start: 02/19/19 13:43 Freq: Status: Active Protocol: Document 04/07/19 09:04 [facility] (Rec: 04/07/19 09:59 [facility] [id number]) OP-PT Subjective Patient Comments Patient Comments Pt reports her knee is a little sore but she has been working a lot on stairs. PT-OP-F Manual Assessment Start: 02/19/19 13:43 Freq: Status: Active Protocol: Document 02/22/19 09:03 [facility] (Rec: 02/22/19 09:50 [facility] [id number]) Manual Assessments Soft Tissue Assessment Soft Tissue Mobility Assessment STM to all LE muscles & joint line Joint Mobility Assessment Joint Mobility Assessment pronation L>R PT-OP-G Mobility & Gait Start: 02/19/19 13:43 Freq: Status: Active Protocol: Document 02/22/19 09:03 [facility] (Rec: 02/22/19 09:50 [facility] [id number]) OP Gait Assessment Comments Gait Comments Pt has dec post depression & ant elevation B PT-OP-J Posture/Palpation/Skin Start: 02/19/19 13:43 Freq: Status: Active Protocol: Document 02/22/19 09:03 [facility] (Rec: 02/22/19 09:50 [facility] [id number]) Posture Evaluation [facility] Postural Classification System [facility] Postural Classifications Anterior/Posterior PT-OP-K Range of Motion Start: 02/19/19 13:43 Freq: Status: Active Protocol: Document 02/22/19 09:03 [facility] (Rec: 02/22/19 09:50 [facility] [id number]) Knee Goniometric Range of Motion Knee Measured in Degrees Right Patient Position Supine Flexion Active (degrees) 121 Extension Active (degrees) 0 Left Patient Position Supine Flexion Active (degrees) 114 Extension Active (degrees) 8 PT-OP-L Special Tests Start: 02/19/19 13:43 Freq: Status: Active Protocol: Document 02/22/19 09:03 [facility] (Rec: 02/22/19 09:50 [facility] [id number]) Special Tests Knee Special Tests Varus- 25 Degrees Test Results neg Valgus- 25 Degrees Test Results neg Greyson Test Test Results positive L Tina's Test Results neg Posterior Draw Test Results neg PT-OP-M Strength Start: 02/19/19 13:43 Freq: Status: Active Protocol: Document 03/29/19 09:03 [facility] (Rec: 03/29/19 09:49 [facility] [id number]) Hip Strength Hip Manual Muscle Testing Right Flexion (L2) 4+ Good+ Extension (S1) 4+ Good+ Abduction 5 Normal Adduction 5 Normal External Rotation 5 Normal Internal Rotation 5 Normal Left Flexion (L2) 4+ Good+ Extension (S1) 4+ Good+ Abduction 4+ Good+ Adduction 5 Normal External Rotation 4+ Good+ Internal Rotation 4+ Good+ Knee Strength Knee Manual Muscle Testing Right Flexion (S2) 5 Normal Extension (L3) 5 Normal Left Flexion (S2) 4+ Good+ Extension (L3) 4 Good Ankle/Foot Strength Ankle and Foot Manual Muscle Testing Right Dorsiflexion (L4) 5 Normal Plantarflexion (S1) 5 Normal Left Dorsiflexion (L4) 5 Normal Plantarflexion (S1) 5 Normal PT-OP-Q Treatments Start: 02/19/19 13:43 Freq: Status: Active Protocol: Document 04/07/19 09:04 [facility] (Rec: 04/07/19 09:59 [facility] [id number]) Cardio Equipment Recumbent Elliptical (Biodex) Duration (Minutes) 6 Resistance 6 Seat Position 6 Gym Equipment Shuttle Balance red clips Details fwd &side:WBOS & NBOS; fwd staggered stance Therapeutic Exercises Standing Exercises stretch Standing Exercise Name MARGARITA Side bilateral Reps/Minutes [id number] single leg Standing Exercise Name mini squat Side bilateral Reps/Minutes 10 Comments in mirror w/UE hand hold lunges Standing Exercise Name mini walking Side bilateral Reps/Minutes 4x20ft sidestep Standing Exercise Name resisted w/ squat Side bilateral Equipment Used lvl 2 Reps/Minutes 20ft Manual Therapy Treatment Soft Tissue Mobilization HS/calf Body Location HS Mobilization Type Rolling Joint Mobilizations tibiofemoral Joint TF Direction PA patell Joint PF Direction med, sup, inf Taping KT Body Location 3 Y for patellar tracking Neuro Re-Education Treatment Balance Activities SLS Details SLS B PT-OP-S Aquatic Treatment Start: 03/17/19 12:42 Freq: Status: Active Protocol: Document 04/05/19 10:15 [facility] (Rec: 04/05/19 16:52 [facility] [id number]) Aquatics Treatment Pool Entry/Exit Pool Entry/Exit Method Stairs Assistance Independent Water Walking [place] December Water Level Chest Level Comments 2 laps Sideways Water Level Chest Level Comments 2 laps each direction Backwards Water Level Chest Level Comments 2 laps Forwards Water Level Chest Level Comments 2 laps Lower Extremity Exercises 4 Details HS curls Body Position Standing Water Level Chest Level Equipment Ankle Floats Reps/Duration 10 reps Comments holding wall 3 Details Step-ups Body Position Standing Water Level Chest Level Reps/Duration 3 x10 reps bilateral 2 Details hip abduction Body Position Standing Water Level Chest Level Equipment Ankle Floats Reps/Duration 10 reps, bilateral Comments holding wall 1 Details hip flex/ext Body Position Standing Water Level Chest Level Equipment Ankle Floats Reps/Duration 10 reps Comments holding wall Lower Extremity Stretches 2 Details Quad Body Position Standing Water Level Chest Level Equipment Ankle Floats Reps/Duration 3 reps each LE Comments holding wall 1 Details Hamstring Body Position Standing Water Level Chest Level Equipment Ankle Floats Reps/Duration 3 reps each LE Comments back to wall Balance 2 Details Tandem standing Body Position Standing Water Level Chest Level Reps/Duration 3 reps each LE 1 Details single limb standing Body Position Standing Water Level Chest Level Equipment UE motions Reps/Duration 3 reps each LE [place] Activities [place] Activities Bicycle [place] Hip Abduction/Adduction Equipment blue float Duration 2-5 min each PT-OP-T Assessment and Plan Start: 02/19/19 13:43 Freq: Status: Active Protocol: Document 04/07/19 09:04 [facility] (Rec: 04/07/19 09:59 [facility] [id number]) Physical Therapy Assessment Goals gait Impairment limited walking ability Short Term Goal (STG) Pt will walk 1 mile consistantly at least 3x/week without inc of pain greater than 1 point on 10 point scale . STG Duration 03/24/19 Prison Goal (LTG) Pt will be able to walk at least 4x/week without inc of L knee pain. LTG Duration 04/24/19 strength Impairment Impaired strength Short Term Goal (STG) Pt will be indep with HEP. STG Duration 03/24/19 Prison Goal (LTG) Pt will have 5/5 LE strength in order to allow her to progress activity tolerance. LTG Duration 04/24/19 Assessment Summary Assessment Pt improved with ability to tolerate lunging and squating and balance board but still has difficulty mainitaining balance in SLS & on uneven surfaces. She had difficulty with mini single leg squats. Physical Therapy Plan Frequency and Duration Frequency of Treatment 2x/Week Duration of Treatment 2 months Plan of Care Start Date 02/22/19 Plan of Care End Date 04/24/19 Next Visit Focus/Plan Next Note Type Treatment Note Next Visit Plan Cont to advance strength & balance for ability to do step
--- NOTE | 2019-04-12 09:02 | PT.OTN ---
Current Diagnoses Pain in left knee (04/12/19) Physical Therapy Treatment Note PT-OP-A Visit Information Start: 02/19/19 13:43 Freq: Status: Active Protocol: Document 04/12/19 08:18 [facility] (Rec: 04/12/19 09:02 [facility] [id number]) Out-Patient Physical Therapy Visit Information Visit Information Visit Type Treatment Note Visit Start Time 08:15 Visit Stop Time 08:55 Total Visit Minutes 40 Visit Number 15 Number of SHUTTLE FINAL INSPECTOR Visits 0 PT-OP-B Current Condition Start: 02/19/19 13:43 Freq: Status: Active Protocol: Document 02/22/19 09:03 [facility] (Rec: 02/22/19 09:50 [facility] [id number]) Current Condition History of Current Condition Onset Date chronic years Current Complaints L knee History of Current Condition Pt reports chronic L knee pain and it got worse when she was hiking and twisted it. Pt reports it goes up and down with pain and she injures it and it hurts and starts to slowly get better. Pt reports she has been doing water aerobics and it helps. Pt has it suggested to her by MD to start walking for BP. Pt reports pain at night that makes sleeping difficult. Prior Treatments and Tests Xray showed moderate arthritis Treatment Goals Patient/Caregiver Goals Start walking and maybe be able to progress to being able to walk with PT-OP-C Subjective Start: 02/19/19 13:43 Freq: Status: Active Protocol: Document 04/12/19 08:18 [facility] (Rec: 04/12/19 09:02 [facility] [id number]) OP-PT Subjective Patient Comments Patient Comments Pt reports she was able to do a small walk last week without issue. PT-OP-F Manual Assessment Start: 02/19/19 13:43 Freq: Status: Active Protocol: Document 02/22/19 09:03 [facility] (Rec: 02/22/19 09:50 [facility] [id number]) Manual Assessments Soft Tissue Assessment Soft Tissue Mobility Assessment STM to all LE muscles & joint line Joint Mobility Assessment Joint Mobility Assessment pronation L>R PT-OP-G Mobility & Gait Start: 02/19/19 13:43 Freq: Status: Active Protocol: Document 02/22/19 09:03 [facility] (Rec: 02/22/19 09:50 [facility] [id number]) OP Gait Assessment Comments Gait Comments Pt has dec post depression & ant elevation B PT-OP-J Posture/Palpation/Skin Start: 02/19/19 13:43 Freq: Status: Active Protocol: Document 02/22/19 09:03 [facility] (Rec: 02/22/19 09:50 [facility] [id number]) Posture Evaluation [facility] Postural Classification System Tari Postural Classifications Anterior/Posterior PT-OP-K Range of Motion Start: 02/19/19 13:43 Freq: Status: Active Protocol: Document 02/22/19 09:03 [facility] (Rec: 02/22/19 09:50 [facility] [id number]) Knee Goniometric Range of Motion Knee Right Patient Position Supine Flexion Active (degrees) 121 Extension Active (degrees) 0 Left Patient Position Supine Flexion Active (degrees) 114 Extension Active (degrees) 8 PT-OP-L Special Tests Start: 02/19/19 13:43 Freq: Status: Active Protocol: Document 02/22/19 09:03 [facility] (Rec: 02/22/19 09:50 [facility] [id number]) Special Tests Knee Special Tests Varus- 25 Degrees Test Results neg Valgus- 25 Degrees Test Results neg Greyson Test Test Results positive L Tina's Test Results neg Posterior Draw Test Results neg PT-OP-M Strength Start: 02/19/19 13:43 Freq: Status: Active Protocol: Document 03/29/19 09:03 [facility] (Rec: 03/29/19 09:49 [facility] [id number]) Hip Strength Hip Manual Muscle Testing Right Flexion (L2) 4+ Good+ Extension (S1) 4+ Good+ Abduction 5 Normal Adduction 5 Normal External Rotation 5 Normal Internal Rotation 5 Normal Left Flexion (L2) 4+ Good+ Extension (S1) 4+ Good+ Abduction 4+ Good+ Adduction 5 Normal External Rotation 4+ Good+ Internal Rotation 4+ Good+ Knee Strength Knee Manual Muscle Testing Right Flexion (S2) 5 Normal Extension (L3) 5 Normal Left Flexion (S2) 4+ Good+ Extension (L3) 4 Good Ankle/Foot Strength Ankle and Foot Manual Muscle Testing Right Dorsiflexion (L4) 5 Normal Plantarflexion (S1) 5 Normal Left Dorsiflexion (L4) 5 Normal Plantarflexion (S1) 5 Normal PT-OP-Q Treatments Start: 02/19/19 13:43 Freq: Status: Active Protocol: Document 04/12/19 08:18 [facility] (Rec: 04/12/19 09:02 [facility] [id number]) Cardio Equipment Recumbent Elliptical (Biodex) Duration (Minutes) 6 Resistance 7 Seat Position 6 Gym Equipment Shuttle Recovery Unilateral Squats Resistance 62# Shuttle Recovery Platform Stable Reps/Time 2x10 Shuttle Balance red clips Details fwd &side:WBOS & NBOS; fwd staggered stance Therapeutic Exercises Standing Exercises stretch Standing Exercise Name MARGARITA Side bilateral Reps/Minutes 30sec single leg Standing Exercise Name mini squat Side bilateral Reps/Minutes 10 Comments in mirror w/UE hand hold lunges Standing Exercise Name mini walking Side bilateral Reps/Minutes 4x20ft Manual Therapy Treatment Soft Tissue Mobilization HS/calf Body Location HS Mobilization Type Rolling ITB Body Location ITB Mobilization Type Rolling Neuro Re-Education Treatment Balance Activities bosu Details step ups & squats Equipment rail prn Reps/Duration 10 B ea SLS Details SLS B PT-OP-S Aquatic Treatment Start: 03/17/19 12:42 Freq: Status: Active Protocol: Document 04/05/19 10:15 [facility] (Rec: 04/05/19 16:52 [facility] [id number]) Aquatics Treatment Pool Entry/Exit Pool Entry/Exit Method Stairs Assistance Independent Water Walking [place] December Water Level Chest Level Comments 2 laps Sideways Water Level Chest Level Comments 2 laps each direction Backwards Water Level Chest Level Comments 2 laps Forwards Water Level Chest Level Comments 2 laps Lower Extremity Exercises 4 Details HS curls Body Position Standing Water Level Chest Level Equipment Ankle Floats Reps/Duration 10 reps Comments holding wall 3 Details Step-ups Body Position Standing Water Level Chest Level Reps/Duration 3 x10 reps bilateral 2 Details hip abduction Body Position Standing Water Level Chest Level Equipment Ankle Floats Reps/Duration 10 reps, bilateral Comments holding wall 1 Details hip flex/ext Body Position Standing Water Level Chest Level Equipment Ankle Floats Reps/Duration 10 reps Comments holding wall Lower Extremity Stretches 2 Details Quad Body Position Standing Water Level Chest Level Equipment Ankle Floats Reps/Duration 3 reps each LE Comments holding wall 1 Details Hamstring Body Position Standing Water Level Chest Level Equipment Ankle Floats Reps/Duration 3 reps each LE Comments back to wall Balance 2 Details Tandem standing Body Position Standing Water Level Chest Level Reps/Duration 3 reps each LE 1 Details single limb standing Body Position Standing Water Level Chest Level Equipment UE motions Reps/Duration 3 reps each LE Juliaetta Activities Juliaetta Activities Bicycle [place] Hip Abduction/Adduction Equipment blue float Duration 2-5 min each PT-OP-T Assessment and Plan Start: 02/19/19 13:43 Freq: Status: Active Protocol: Document 04/12/19 08:18 [facility] (Rec: 04/12/19 09:02 [facility] [id number]) Physical Therapy Assessment Goals gait Impairment limited walking ability Short Term Goal (STG) Pt will walk 1 mile consistantly at least 3x/week without inc of pain greater than 1 point on 10 point scale . STG Duration 03/24/19 Gutter Mouth Cutter Goal (LTG) Pt will be able to walk at least 4x/week without inc of L knee pain. LTG Duration 04/24/19 strength Impairment Impaired strength Short Term Goal (STG) Pt will be indep with HEP. STG Duration 03/24/19 Longterm Goal (LTG) Pt will have 5/5 LE strength in order to allow her to progress activity tolerance. LTG Duration 04/24/19 Assessment Summary Assessment Pt improving with form w/ exercises and balance on unstable surface. Improved ROM today without pain at end ranges and improving soft tissue mobility. Pt encouraged to try to do mult short walks this week to start building up. Physical Therapy Plan Frequency and Duration Frequency of Treatment 2x/Week Duration of Treatment 2 months Plan of Care Start Date 02/22/19 Plan of Care End Date 04/24/19 Next Visit Focus/Plan Next Note Type Treatment Note Next Visit Plan try resisted step up
--- NOTE | 2019-04-14 15:18 | PT.OTN ---
Current Diagnoses Pain in left knee (04/14/19) Physical Therapy Treatment Note PT-OP-A Visit Information Start: 02/19/19 13:43 Freq: Status: Active Protocol: Document 04/14/19 11:45 [facility] (Rec: 04/14/19 15:17 [facility] [id number]) Out-Patient Physical Therapy Visit Information Visit Information Visit Type Aquatic Treatment Note Visit Start Time 11:45 Visit Stop Time 12:30 Total Visit Minutes 45 Visit Number 16 Number of LAYOUT OPERATOR Visits 1 PT-OP-B Current Condition Start: 02/19/19 13:43 Freq: Status: Active Protocol: Document 02/22/19 09:03 [facility] (Rec: 02/22/19 09:50 [facility] [id number]) Current Condition History of Current Condition Onset Date chronic years Current Complaints L knee History of Current Condition Pt reports chronic L knee pain and it got worse when she was hiking and twisted it. Pt reports it goes up and down with pain and she injures it and it hurts and starts to slowly get better. Pt reports she has been doing water aerobics and it helps. Pt has it suggested to her by MD to start walking for BP. Pt reports pain at night that makes sleeping difficult. Prior Treatments and Tests Xray showed moderate arthritis Treatment Goals Patient/Caregiver Goals Start walking and maybe be able to progress to being able to walk with PT-OP-C Subjective Start: 02/19/19 13:43 Freq: Status: Active Protocol: Document 04/14/19 11:45 [facility] (Rec: 04/14/19 15:17 LJ [id number]) OP-PT Subjective Patient Comments Patient Comments Pt states she is benefitting from aquatic therapy and is now able to identify her core muscles and utiilize them for exercise. PT-OP-F Manual Assessment Start: 02/19/19 13:43 Freq: Status: Active Protocol: Document 02/22/19 09:03 [facility] (Rec: 02/22/19 09:50 [facility] [id number]) Manual Assessments Soft Tissue Assessment Soft Tissue Mobility Assessment STM to all LE muscles & joint line Joint Mobility Assessment Joint Mobility Assessment pronation L>R PT-OP-G Mobility & Gait Start: 02/19/19 13:43 Freq: Status: Active Protocol: Document 02/22/19 09:03 [facility] (Rec: 02/22/19 09:50 [facility] [id number]) OP Gait Assessment Comments Gait Comments Pt has dec post depression & ant elevation B PT-OP-J Posture/Palpation/Skin Start: 02/19/19 13:43 Freq: Status: Active Protocol: Document 02/22/19 09:03 [facility] (Rec: 02/22/19 09:50 [facility] [id number]) Posture Evaluation [facility] Postural Classification System Tari Postural Classifications Anterior/Posterior PT-OP-K Range of Motion Start: 02/19/19 13:43 Freq: Status: Active Protocol: Document 02/22/19 09:03 [facility] (Rec: 02/22/19 09:50 [facility] [id number]) Knee Goniometric Range of Motion Knee Right Patient Position Supine Flexion Active (degrees) 121 Extension Active (degrees) 0 Left Patient Position Supine Flexion Active (degrees) 114 Extension Active (degrees) 8 PT-OP-L Special Tests Start: 02/19/19 13:43 Freq: Status: Active Protocol: Document 02/22/19 09:03 [facility] (Rec: 02/22/19 09:50 [facility] [id number]) Special Tests Knee Special Tests Varus- 25 Degrees Test Results neg Valgus- 25 Degrees Test Results neg Greyson Test Test Results positive L Tina's Test Results neg Posterior Draw Test Results neg PT-OP-M Strength Start: 02/19/19 13:43 Freq: Status: Active Protocol: Document 03/29/19 09:03 [facility] (Rec: 03/29/19 09:49 [facility] [id number]) Hip Strength Hip Manual Muscle Testing Right Flexion (L2) 4+ Good+ Extension (S1) 4+ Good+ Abduction 5 Normal Adduction 5 Normal External Rotation 5 Normal Internal Rotation 5 Normal Left Flexion (L2) 4+ Good+ Extension (S1) 4+ Good+ Abduction 4+ Good+ Adduction 5 Normal External Rotation 4+ Good+ Internal Rotation 4+ Good+ Knee Strength Knee Manual Muscle Testing Right Flexion (S2) 5 Normal Extension (L3) 5 Normal Left Flexion (S2) 4+ Good+ Extension (L3) 4 Good Ankle/Foot Strength Ankle and Foot Manual Muscle Testing Right Dorsiflexion (L4) 5 Normal Plantarflexion (S1) 5 Normal Left Dorsiflexion (L4) 5 Normal Plantarflexion (S1) 5 Normal PT-OP-Q Treatments Start: 02/19/19 13:43 Freq: Status: Active Protocol: Document 04/12/19 08:18 [facility] (Rec: 04/12/19 09:02 [facility] [id number]) Cardio Equipment Recumbent Elliptical (Biodex) Duration (Minutes) 6 Resistance 7 Seat Position 6 Gym Equipment Shuttle Recovery Unilateral Squats Resistance 62# Shuttle Recovery Platform Stable Reps/Time 2x10 Shuttle Balance red clips Details fwd &side:WBOS & NBOS; fwd staggered stance Therapeutic Exercises Standing Exercises stretch Standing Exercise Name MARGARITA Side bilateral Reps/Minutes 30sec single leg Standing Exercise Name mini squat Side bilateral Reps/Minutes 10 Comments in mirror w/UE hand hold lunges Standing Exercise Name mini walking Side bilateral Reps/Minutes 4x20ft Manual Therapy Treatment Soft Tissue Mobilization HS/calf Body Location HS Mobilization Type Rolling ITB Body Location ITB Mobilization Type Rolling Neuro Re-Education Treatment Balance Activities bosu Details step ups & squats Equipment rail prn Reps/Duration 10 B ea SLS Details SLS B PT-OP-S Aquatic Treatment Start: 03/17/19 12:42 Freq: Status: Active Protocol: Document 04/14/19 11:45 [facility] (Rec: 04/14/19 15:17 [facility] [id number]) Aquatics Treatment Pool Entry/Exit Pool Entry/Exit Method Stairs Assistance Independent Water Walking quick directional changes Water Level Chest Level Walking Equipment Ankle Weight- 2.5# Level of Assistance Verbal Cues Comments 5 min December Water Level Chest Level Comments 2 laps Sideways Water Level Chest Level Comments 2 laps each direction Backwards Water Level Chest Level Comments 2 laps Forwards Water Level Chest Level Comments 2 laps Lower Extremity Exercises split squats-bilat Details on boxes Water Level Waist Level Reps/Duration 10 single leg squat-bilat Details on box Water Level Waist Level Reps/Duration 10 Comments holding on wall squats on boxes Water Level Waist Level Comments good form CKC hip abduction Details standing on bax Water Level Waist Level Equipment Ankle Weight- 2.5# Reps/Duration 15 bilat 4 Details HS curls Body Position Standing Water Level Chest Level Equipment Ankle Weight- 2.5# Reps/Duration 20 reps Comments holding wall 3 Details Step-ups Body Position Standing Water Level Chest Level Equipment Ankle Weight- 2.5# Reps/Duration 3 x10 reps bilateral 2 Details hip abduction Body Position Standing Water Level Chest Level Equipment Ankle Weight- 2.5# Reps/Duration 10 reps, bilateral 1 Details hip flex/ext Body Position Standing Water Level Chest Level Equipment Ankle Weight- 2.5# Reps/Duration 10 reps Lower Extremity Stretches ITB Details at wall Body Position Standing Water Level Chest Level Equipment Ankle Weight- 2.5# Reps/Duration 1 min 2 Details Quad Body Position Standing Water Level Chest Level Equipment Ankle Floats Reps/Duration 3 reps each LE Comments holding wall 1 Details Hamstring Body Position Standing Water Level Chest Level Equipment Ankle Floats Reps/Duration 3 reps each LE Comments back to wall Balance 1 Details single limb standing Body Position Standing Water Level Chest Level Equipment UE motions-unilateral Reps/Duration 3 reps each LE Manual Techniques Aquatic Massage rolling ITB with tennis ball against wall PT-OP-T Assessment and Plan Start: 02/19/19 13:43 Freq: Status: Active Protocol: Document 04/14/19 11:45 [facility] (Rec: 04/14/19 15:17 [facility] [id number]) Physical Therapy Assessment Goals gait Impairment limited walking ability Short Term Goal (STG) Pt will walk 1 mile consistantly at least 3x/week without inc of pain greater than 1 point on 10 point scale . STG Duration 03/24/19 Half-Way Goal (LTG) Pt will be able to walk at least 4x/week without inc of L knee pain. LTG Duration 04/24/19 strength Impairment Impaired strength Short Term Goal (STG) Pt will be indep with HEP. STG Duration 03/24/19 Half-Way Goal (LTG) Pt will have 5/5 LE strength in order to allow her to progress activity tolerance. LTG Duration 04/24/19 Assessment Summary Assessment Pt has good form with exercises. while performing SL squat on RLE pt internally rotated R hip and hiked up left hip to compensate for glute weakness. Better form with left single leg squat Physical Therapy Plan Frequency and Duration Frequency of Treatment 2x/Week Duration of Treatment 2 months Plan of Care Start Date 02/22/19 Plan of Care End Date 04/24/19 Therapeutic Interventions Therapeutic Interventions Aquatic Therapy Balance Training Gait Training Home Exercise Program Joint Mobilizations Manual Therapy Neuromuscular Re-education Patient/Caregiver Education Self-Care/Home Management Soft Tissue Mobilization Taping Therapeutic Activities Therapeutic Exercises Modalities Cold Pack/Ice Massage Electric Stimulation Hot Packs Infrared Therapy Iontophoresis Ultrasound Next Visit Focus/Plan Next Note Type Treatment Note Next Visit Plan try resisted step up with stretch cords in pool and land
--- NOTE | 2019-04-19 09:08 | PT.OTN ---
Current Diagnoses Pain in left knee (04/19/19) Physical Therapy Treatment Note PT-OP-A Visit Information Start: 02/19/19 13:43 Freq: Status: Active Protocol: Document 04/19/19 08:18 [facility] (Rec: 04/19/19 09:07 [facility] [id number]) Out-Patient Physical Therapy Visit Information Visit Information Visit Type Treatment Note Visit Start Time 08:15 Visit Stop Time 08:55 Total Visit Minutes 40 Visit Number 17 Number of WINDSHIELD INSTALLER Visits 0 PT-OP-B Current Condition Start: 02/19/19 13:43 Freq: Status: Active Protocol: Document 02/22/19 09:03 [facility] (Rec: 02/22/19 09:50 [facility] [id number]) Current Condition History of Current Condition Onset Date chronic years Current Complaints L knee History of Current Condition Pt reports chronic L knee pain and it got worse when she was hiking and twisted it. Pt reports it goes up and down with pain and she injures it and it hurts and starts to slowly get better. Pt reports she has been doing water aerobics and it helps. Pt has it suggested to her by MD to start walking for BP. Pt reports pain at night that makes sleeping difficult. Prior Treatments and Tests Xray showed moderate arthritis Treatment Goals Patient/Caregiver Goals Start walking and maybe be able to progress to being able to walk with PT-OP-C Subjective Start: 02/19/19 13:43 Freq: Status: Active Protocol: Document 04/19/19 08:18 [facility] (Rec: 04/19/19 09:07 [facility] [id number]) OP-PT Subjective Patient Comments Patient Comments Pt reports she had a hard HS workout on Friday and woke up with cramping behind the back of the knee. PT-OP-F Manual Assessment Start: 02/19/19 13:43 Freq: Status: Active Protocol: Document 02/22/19 09:03 [facility] (Rec: 02/22/19 09:50 [facility] [id number]) Manual Assessments Soft Tissue Assessment Soft Tissue Mobility Assessment STM to all LE muscles & joint line Joint Mobility Assessment Joint Mobility Assessment pronation L>R PT-OP-G Mobility & Gait Start: 02/19/19 13:43 Freq: Status: Active Protocol: Document 02/22/19 09:03 [facility] (Rec: 02/22/19 09:50 [facility] [id number]) OP Gait Assessment Comments Gait Comments Pt has dec post depression & ant elevation B PT-OP-J Posture/Palpation/Skin Start: 02/19/19 13:43 Freq: Status: Active Protocol: Document 02/22/19 09:03 [facility] (Rec: 02/22/19 09:50 [facility] [id number]) Posture Evaluation [facility] Postural Classification System [facility] Postural Classifications Anterior/Posterior PT-OP-K Range of Motion Start: 02/19/19 13:43 Freq: Status: Active Protocol: Document 02/22/19 09:03 [facility] (Rec: 02/22/19 09:50 [facility] [id number]) Knee Goniometric Range of Motion Knee Right Patient Position Supine Flexion Active (degrees) 121 Extension Active (degrees) 0 Left Patient Position Supine Flexion Active (degrees) 114 Extension Active (degrees) 8 PT-OP-L Special Tests Start: 02/19/19 13:43 Freq: Status: Active Protocol: Document 02/22/19 09:03 [facility] (Rec: 02/22/19 09:50 [facility] [id number]) Special Tests Knee Special Tests Varus- 25 Degrees Test Results neg Valgus- 25 Degrees Test Results neg Greyson Test Test Results positive L Tina's Test Results neg Posterior Draw Test Results neg PT-OP-M Strength Start: 02/19/19 13:43 Freq: Status: Active Protocol: Document 04/19/19 08:18 [facility] (Rec: 04/19/19 09:07 [facility] [id number]) Hip Strength Hip Manual Muscle Testing Right Flexion (L2) 5 Normal Extension (S1) 5 Normal Abduction 5 Normal External Rotation 5 Normal Internal Rotation 5 Normal Left Flexion (L2) 5 Normal Extension (S1) 4+ Good+ Abduction 4+ Good+ External Rotation 5 Normal Internal Rotation 5 Normal Knee Strength Knee Manual Muscle Testing Right Flexion (S2) 5 Normal Extension (L3) 5 Normal Left Flexion (S2) 5 Normal Extension (L3) 5 Normal Ankle/Foot Strength Ankle and Foot Manual Muscle Testing Right Dorsiflexion (L4) 5 Normal Plantarflexion (S1) 5 Normal Left Dorsiflexion (L4) 5 Normal Plantarflexion (S1) 5 Normal PT-OP-Q Treatments Start: 02/19/19 13:43 Freq: Status: Active Protocol: Document 04/19/19 08:18 [facility] (Rec: 04/19/19 09:07 [facility] [id number]) Cardio Equipment Recumbent Elliptical ([employer]) Duration (Minutes) 6 Resistance 7 Seat Position 6 Gym Equipment Shuttle Recovery Unilateral Squats Resistance 75# Shuttle Recovery Platform Stable Reps/Time 2x10 Sport Cord step ups Exercise Details fwd &back Cord/Resistance red Reps/Duration 10 B ea Therapeutic Exercises Supine Exercises Felix test Supine Exercise Name stretch Side left Reps/Minutes 1 min Standing Exercises sidestep Standing Exercise Name resisted w/ squat Side bilateral Equipment Used teal Reps/Minutes 20ft Manual Therapy Treatment Soft Tissue Mobilization HS/calf Body Location HS Mobilization Type Rolling PT-OP-S Aquatic Treatment Start: 03/17/19 12:42 Freq: Status: Active Protocol: Document 04/14/19 11:45 [facility] (Rec: 04/14/19 15:17 LJ [id number]) Aquatics Treatment Pool Entry/Exit Pool Entry/Exit Method Stairs Assistance Independent Water Walking quick directional changes Water Level Chest Level Walking Equipment Ankle Weight- 2.5# Level of Assistance Verbal Cues Comments 5 min December Water Level Chest Level Comments 2 laps Sideways Water Level Chest Level Comments 2 laps each direction Backwards Water Level Chest Level Comments 2 laps Forwards Water Level Chest Level Comments 2 laps Lower Extremity Exercises split squats-bilat Details on boxes Water Level Waist Level Reps/Duration 10 single leg squat-bilat Details on box Water Level Waist Level Reps/Duration 10 Comments holding on wall squats on boxes Water Level Waist Level Comments good form CKC hip abduction Details standing on bax Water Level Waist Level Equipment Ankle Weight- 2.5# Reps/Duration 15 bilat 4 Details HS curls Body Position Standing Water Level Chest Level Equipment Ankle Weight- 2.5# Reps/Duration 20 reps Comments holding wall 3 Details Step-ups Body Position Standing Water Level Chest Level Equipment Ankle Weight- 2.5# Reps/Duration 3 x10 reps bilateral 2 Details hip abduction Body Position Standing Water Level Chest Level Equipment Ankle Weight- 2.5# Reps/Duration 10 reps, bilateral 1 Details hip flex/ext Body Position Standing Water Level Chest Level Equipment Ankle Weight- 2.5# Reps/Duration 10 reps Lower Extremity Stretches ITB Details at wall Body Position Standing Water Level Chest Level Equipment Ankle Weight- 2.5# Reps/Duration 1 min 2 Details Quad Body Position Standing Water Level Chest Level Equipment Ankle Floats Reps/Duration 3 reps each LE Comments holding wall 1 Details Hamstring Body Position Standing Water Level Chest Level Equipment Ankle Floats Reps/Duration 3 reps each LE Comments back to wall Balance 1 Details single limb standing Body Position Standing Water Level Chest Level Equipment UE motions-unilateral Reps/Duration 3 reps each LE Manual Techniques Aquatic Massage rolling ITB with tennis ball against wall PT-OP-T Assessment and Plan Start: 02/19/19 13:43 Freq: Status: Active Protocol: Document 04/19/19 08:18 [facility] (Rec: 04/19/19 09:07 [facility] [id number]) Physical Therapy Assessment Goals gait Impairment limited walking ability Short Term Goal (STG) Pt will walk 1 mile consistantly at least 3x/week without inc of pain greater than 1 point on 10 point scale . 04/19-good progress 2x/week with 2 pool workouts and PT STG Duration 05/10/19 Funeral Location Manager Goal (LTG) Pt will be able to walk at least 4x/week without inc of L knee pain. LTG Duration 06/24/19 strength Impairment Impaired strength Short Term Goal (STG) Pt will be indep with HEP. STG Duration achieved Intermediate Goal (LTG) Pt will have 5/5 LE strength in order to allow her to progress activity tolerance 04/19-significant improvement. LTG Duration 05/24/19 Assessment Summary Assessment Pt is improving in her strength & function at this time. She cont to make gains with PT. She was able to tolerate resisted step up today and do steps reciprocally without difficulty. Physical Therapy Plan Frequency and Duration Frequency of Treatment 1-2x/week Duration of Treatment 1 months Plan of Care Start Date 04/19/19 Plan of Care End Date 05/19/19 Therapeutic Interventions Therapeutic Interventions Aquatic Therapy Balance Training Gait Training Home Exercise Program Joint Mobilizations Manual Therapy Neuromuscular Re-education Patient/Caregiver Education Self-Care/Home Management Soft Tissue Mobilization Taping Therapeutic Activities Therapeutic Exercises Modalities Cold Pack/Ice Massage Electric Stimulation Hot Packs Infrared Therapy Iontophoresis Ultrasound Next Visit Focus/Plan Next Note Type Treatment Note Next Visit Plan cont to work on strength in standing & balance
--- NOTE | 2019-04-19 09:08 | PT.OPPOC ---
Addendum entered and electronically signed by Hansa Jolley, PT 01/31/20 14:59: resend POC Original Note: Current Diagnoses Pain in left knee (04/19/19) Provider Visit Care Team Role Provider Type ERIC Hankins Primary Care Provider Advanced Pole Inspector Specialty: Family Practice Address: [address] [place] [address], [id number] Email: ERIC Isbell Attending Provider Advanced Pole Inspector Specialty: Medical Address: [address] [place] [address], [id number] Email: Plan Of Care PT-OP-T Assessment and Plan Start: 02/19/19 13:43 Freq: Status: Active Protocol: Document 04/19/19 08:18 [facility] (Rec: 04/19/19 09:07 [facility] [id number]) Physical Therapy Assessment Goals gait Impairment limited walking ability Short Term Goal (STG) Pt will walk 1 mile consistantly at least 3x/week without inc of pain greater than 1 point on 10 point scale . 04/19-good progress 2x/week with 2 pool workouts and PT STG Duration 05/10/19 Senior Living Goal (LTG) Pt will be able to walk at least 4x/week without inc of L knee pain. LTG Duration 06/24/19 strength Impairment Impaired strength Short Term Goal (STG) Pt will be indep with HEP. STG Duration achieved Water Rights Specialist Goal (LTG) Pt will have 5/5 LE strength in order to allow her to progress activity tolerance 04/19-significant improvement. LTG Duration 05/24/19 Assessment Summary Assessment Pt is improving in her strength & function at this time. She cont to make gains with PT. She was able to tolerate resisted step up today and do steps reciprocally without difficulty. Physical Therapy Plan Frequency and Duration Frequency of Treatment 1-2x/week Duration of Treatment 1 months Plan of Care Start Date 04/19/19 Plan of Care End Date 05/19/19 Therapeutic Interventions Therapeutic Interventions Aquatic Therapy Balance Training Gait Training Home Exercise Program Joint Mobilizations Manual Therapy Neuromuscular Re-education Patient/Caregiver Education Self-Care/Home Management Soft Tissue Mobilization Taping Therapeutic Activities Therapeutic Exercises Modalities Cold Pack/Ice Massage Electric Stimulation Hot Packs Infrared Therapy Iontophoresis Ultrasound Next Visit Focus/Plan Next Note Type Treatment Note Next Visit Plan cont to work on strength in standing & balance Plan of Care Dates Plan of Care Start Date 04/19/19 Plan of Care End Date 05/19/19 Please Sign and Return: I have reviewed this Plan of Care and certify that the skilled therapy services above are required to meet the patient?s needs. Physician Signature Date Printed Name and Credentials Clinical Instructor Signature Printed Name and Credentials
--- NOTE | 2019-04-28 09:52 | PT.OTN ---
Current Diagnoses Pain in left knee (04/28/19) Physical Therapy Treatment Note PT-OP-A Visit Information Start: 02/19/19 13:43 Freq: Status: Active Protocol: Document 04/28/19 09:05 [facility] (Rec: 04/28/19 09:51 [facility] [id number]) Out-Patient Physical Therapy Visit Information Visit Information Visit Type Discharge Summary Visit Start Time 09:00 Visit Stop Time 09:40 Total Visit Minutes 40 Visit Number 18 Number of SENIOR NET PROGRAMMER Visits 0 PT-OP-B Current Condition Start: 02/19/19 13:43 Freq: Status: Active Protocol: Document 02/22/19 09:03 [facility] (Rec: 02/22/19 09:50 [facility] [id number]) Current Condition History of Current Condition Onset Date chronic years Current Complaints L knee History of Current Condition Pt reports chronic L knee pain and it got worse when she was hiking and twisted it. Pt reports it goes up and down with pain and she injures it and it hurts and starts to slowly get better. Pt reports she has been doing water aerobics and it helps. Pt has it suggested to her by MD to start walking for BP. Pt reports pain at night that makes sleeping difficult. Prior Treatments and Tests Xray showed moderate arthritis Treatment Goals Patient/Caregiver Goals Start walking and maybe be able to progress to being able to walk with PT-OP-C Subjective Start: 02/19/19 13:43 Freq: Status: Active Protocol: Document 04/28/19 09:05 [facility] (Rec: 04/28/19 09:51 [facility] [id number]) OP-PT Subjective Patient Comments Patient Comments Pt reprots she did a lot of walking last week on a trip to [place] and her other knee started to bother her. PT-OP-F Manual Assessment Start: 02/19/19 13:43 Freq: Status: Active Protocol: Document 02/22/19 09:03 [facility] (Rec: 02/22/19 09:50 [facility] [id number]) Manual Assessments Soft Tissue Assessment Soft Tissue Mobility Assessment STM to all LE muscles & joint line Joint Mobility Assessment Joint Mobility Assessment pronation L>R PT-OP-G Mobility & Gait Start: 02/19/19 13:43 Freq: Status: Active Protocol: Document 02/22/19 09:03 [facility] (Rec: 02/22/19 09:50 [facility] [id number]) OP Gait Assessment Comments Gait Comments Pt has dec post depression & ant elevation B PT-OP-J Posture/Palpation/Skin Start: 02/19/19 13:43 Freq: Status: Active Protocol: Document 02/22/19 09:03 [facility] (Rec: 02/22/19 09:50 [facility] [id number]) Posture Evaluation [facility] Postural Classification System [facility] Postural Classifications Anterior/Posterior PT-OP-K Range of Motion Start: 02/19/19 13:43 Freq: Status: Active Protocol: Document 02/22/19 09:03 [facility] (Rec: 02/22/19 09:50 [facility] [id number]) Knee Goniometric Range of Motion Knee Right Patient Position Supine Flexion Active (degrees) 121 Extension Active (degrees) 0 Left Patient Position Supine Flexion Active (degrees) 114 Extension Active (degrees) 8 PT-OP-L Special Tests Start: 02/19/19 13:43 Freq: Status: Active Protocol: Document 02/22/19 09:03 [facility] (Rec: 02/22/19 09:50 [facility] [id number]) Special Tests Knee Special Tests Varus- 25 Degrees Test Results neg Valgus- 25 Degrees Test Results neg Greyson Test Test Results positive L Tina's Test Results neg Posterior Draw Test Results neg PT-OP-M Strength Start: 02/19/19 13:43 Freq: Status: Active Protocol: Document 04/28/19 09:05 [facility] (Rec: 04/28/19 09:51 [facility] [id number]) Hip Strength Hip Manual Muscle Testing Left Flexion (L2) 5 Normal Extension (S1) 5 Normal Abduction 5 Normal Knee Strength Knee Manual Muscle Testing Right Flexion (S2) 5 Normal Extension (L3) 5 Normal Left Flexion (S2) 5 Normal Extension (L3) 5 Normal PT-OP-Q Treatments Start: 02/19/19 13:43 Freq: Status: Active Protocol: Document 04/28/19 09:05 [facility] (Rec: 04/28/19 09:51 [facility] [id number]) Cardio Equipment Recumbent Elliptical ([employer]) Duration (Minutes) 7 Resistance 8 Seat Position 6 Therapeutic Exercises Standing Exercises stretch Standing Exercise Name HS, calf, quad Side bilateral Reps/Minutes 30 sec lunges Standing Exercise Name mini walking Side bilateral Reps/Minutes 4220ft sidestep Standing Exercise Name sidestep Side bilateral Equipment Used lvl3 Reps/Minutes 20ft squat Standing Exercise Name by rail Side bilateral Reps/Minutes 15 Manual Therapy Treatment Soft Tissue Mobilization HS/calf Body Location HS Mobilization Type Rolling ITB Body Location ITB Mobilization Type Rolling PT-OP-S Aquatic Treatment Start: 03/17/19 12:42 Freq: Status: Active Protocol: Document 04/14/19 11:45 [facility] (Rec: 04/14/19 15:17 [facility] [id number]) Aquatics Treatment Pool Entry/Exit Pool Entry/Exit Method Stairs Assistance Independent Water Walking quick directional changes Water Level Chest Level Walking Equipment Ankle Weight- 2.5# Level of Assistance Verbal Cues Comments 5 min [place] March Water Level Chest Level Comments 2 laps Sideways Water Level Chest Level Comments 2 laps each direction Backwards Water Level Chest Level Comments 2 laps Forwards Water Level Chest Level Comments 2 laps Lower Extremity Exercises split squats-bilat Details on boxes Water Level Waist Level Reps/Duration 10 single leg squat-bilat Details on box Water Level Waist Level Reps/Duration 10 Comments holding on wall squats on boxes Water Level Waist Level Comments good form CKC hip abduction Details standing on bax Water Level Waist Level Equipment Ankle Weight- 2.5# Reps/Duration 15 bilat 4 Details HS curls Body Position Standing Water Level Chest Level Equipment Ankle Weight- 2.5# Reps/Duration 20 reps Comments holding wall 3 Details Step-ups Body Position Standing Water Level Chest Level Equipment Ankle Weight- 2.5# Reps/Duration 3 x10 reps bilateral 2 Details hip abduction Body Position Standing Water Level Chest Level Equipment Ankle Weight- 2.5# Reps/Duration 10 reps, bilateral 1 Details hip flex/ext Body Position Standing Water Level Chest Level Equipment Ankle Weight- 2.5# Reps/Duration 10 reps Lower Extremity Stretches ITB Details at wall Body Position Standing Water Level Chest Level Equipment Ankle Weight- 2.5# Reps/Duration 1 min 2 Details Quad Body Position Standing Water Level Chest Level Equipment Ankle Floats Reps/Duration 3 reps each LE Comments holding wall 1 Details Hamstring Body Position Standing Water Level Chest Level Equipment Ankle Floats Reps/Duration 3 reps each LE Comments back to wall Balance 1 Details single limb standing Body Position Standing Water Level Chest Level Equipment UE motions-unilateral Reps/Duration 3 reps each LE Manual Techniques Aquatic Massage rolling ITB with tennis ball against wall PT-OP-T Assessment and Plan Start: 02/19/19 13:43 Freq: Status: Active Protocol: Document 04/28/19 09:05 [facility] (Rec: 04/28/19 09:51 [facility] [id number]) Physical Therapy Assessment Goals gait Impairment limited walking ability Short Term Goal (STG) Pt will walk 1 mile consistantly at least 3x/week without inc of pain greater than 1 point on 10 point scale . 04/19-good progress 2x/week with 2 pool workouts and PT STG Duration achieved Snf Goal (LTG) Pt will be able to walk at least 4x/week without inc of L knee pain. LTG Duration 06/24/19 improved strength Impairment Impaired strength Short Term Goal (STG) Pt will be indep with HEP. STG Duration achieved Acoustical Material Worker Goal (LTG) Pt will have 5/5 LE strength in order to allow her to progress activity tolerance 04/19-significant improvement. LTG Duration achieved Assessment Summary Assessment Pt has made excellent progress with inc in activity tolerance, strength, and functional ability. She will cont HEP and walking progression indep. Physical Therapy Plan Discharge Physical Therapy Discharge Reasons Goals Met Discharge Comments Pt is indep with HEP and will cont to work on walking progression and strengthening and flexibility exercises.
--- NOTE | 2019-04-28 09:53 | PT.OPPOC ---
Current Diagnoses Pain in left knee (04/28/19) Provider Visit Care Team Role Provider Type ERIC Hankins Primary Care Provider Advanced Director Of Instrumental Music Specialty: Family Practice Address: [address] [place] [address], [id number] Email: ERIC Isbell Attending Provider Advanced Director Of Instrumental Music Specialty: Medical Address: [address] [place] [address], [id number] Email: Plan Of Care PT-OP-T Assessment and Plan Start: 02/19/19 13:43 Freq: Status: Active Protocol: Document 04/28/19 09:05 [facility] (Rec: 04/28/19 09:51 [facility] [id number]) Physical Therapy Assessment Goals gait Impairment limited walking ability Short Term Goal (STG) Pt will walk 1 mile consistantly at least 3x/week without inc of pain greater than 1 point on 10 point scale . 04/19-good progress 2x/week with 2 pool workouts and PT STG Duration achieved Developmental Education Instructor Goal (LTG) Pt will be able to walk at least 4x/week without inc of L knee pain. LTG Duration 06/24/19 improved strength Impairment Impaired strength Short Term Goal (STG) Pt will be indep with HEP. STG Duration achieved Skilled Nursing Goal (LTG) Pt will have 5/5 LE strength in order to allow her to progress activity tolerance 04/19-significant improvement. LTG Duration achieved Assessment Summary Assessment Pt has made excellent progress with inc in activity tolerance, strength, and functional ability. She will cont HEP and walking progression indep. Physical Therapy Plan Discharge Physical Therapy Discharge Reasons Goals Met Discharge Comments Pt is indep with HEP and will cont to work on walking progression and strengthening and flexibility exercises. Plan of Care Dates Plan of Care Start Date 04/19/19 Plan of Care End Date 05/19/19 Please Sign and Return: I have reviewed this Plan of Care and certify that the skilled therapy services above are required to meet the patient?s needs. Physician Signature Date Printed Name and Credentials Clinical Instructor Signature Printed Name and Credentials
--- NOTE | 2019-04-28 10:31 | PT.OPDS ---
Current Diagnoses Pain in left knee (04/28/19) Provider Visit Care Team Role Provider Type ERIC Hankins Primary Care Provider Advanced Cloth Colorer Specialty: Family Practice Address: [address] [place] [address], [id number] Email: ERIC Isbell Attending Provider Advanced Cl[employer] Colorer Specialty: Medical Address: [address] [place] [address], [id number] Email: Visit Number Visit Number 18 Discharge Summary PT-OP-B Current Condition Start: 02/19/19 13:43 Freq: Status: Active Protocol: Document 02/22/19 09:03 [facility] (Rec: 02/22/19 09:50 [facility] [id number]) Current Condition History of Current Condition Onset Date chronic years Current Complaints L knee History of Current Condition Pt reports chronic L knee pain and it got worse when she was hiking and twisted it. Pt reports it goes up and down with pain and she injures it and it hurts and starts to slowly get better. Pt reports she has been doing water aerobics and it helps. Pt has it suggested to her by MD to start walking for BP. Pt reports pain at night that makes sleeping difficult. Prior Treatments and Tests Xray showed moderate arthritis Treatment Goals Patient/Caregiver Goals Start walking and maybe be able to progress to being able to walk with PT-OP-C Subjective Start: 02/19/19 13:43 Freq: Status: Active Protocol: Document 04/28/19 09:05 [facility] (Rec: 04/28/19 09:51 [facility] [id number]) OP-PT Subjective Patient Comments Patient Comments Pt reprots she did a lot of walking last week on a trip to [place] and her other knee started to bother her. PT-OP-F Manual Assessment Start: 02/19/19 13:43 Freq: Status: Active Protocol: Document 02/22/19 09:03 [facility] (Rec: 02/22/19 09:50 [facility] [id number]) Manual Assessments Soft Tissue Assessment Soft Tissue Mobility Assessment STM to all LE muscles & joint line Joint Mobility Assessment Joint Mobility Assessment pronation L>R PT-OP-G Mobility & Gait Start: 02/19/19 13:43 Freq: Status: Active Protocol: Document 02/22/19 09:03 [facility] (Rec: 02/22/19 09:50 [facility] [id number]) OP Gait Assessment Comments Gait Comments Pt has dec post depression & ant elevation B PT-OP-J Posture/Palpation/Skin Start: 02/19/19 13:43 Freq: Status: Active Protocol: Document 02/22/19 09:03 [facility] (Rec: 02/22/19 09:50 [facility] [id number]) Posture Evaluation [facility] Postural Classification System [facility] Postural Classifications Anterior/Posterior PT-OP-K Range of Motion Start: 02/19/19 13:43 Freq: Status: Active Protocol: Document 02/22/19 09:03 [facility] (Rec: 02/22/19 09:50 [facility] [id number]) Knee Goniometric Range of Motion Knee Right Patient Position Supine Flexion Active (degrees) 121 Extension Active (degrees) 0 Left Patient Position Supine Flexion Active (degrees) 114 Extension Active (degrees) 8 PT-OP-L Special Tests Start: 02/19/19 13:43 Freq: Status: Active Protocol: Document 02/22/19 09:03 [facility] (Rec: 02/22/19 09:50 [facility] [id number]) Special Tests Knee Special Tests Varus- 25 Degrees Test Results neg Valgus- 25 Degrees Test Results neg Greyson Test Test Results positive L Tina's Test Results neg Posterior Draw Test Results neg PT-OP-M Strength Start: 02/19/19 13:43 Freq: Status: Active Protocol: Document 04/28/19 09:05 [facility] (Rec: 04/28/19 09:51 [facility] [id number]) Hip Strength Hip Manual Muscle Testing Left Flexion (L2) 5 Normal Extension (S1) 5 Normal Abduction 5 Normal Knee Strength Knee Manual Muscle Testing Right Flexion (S2) 5 Normal Extension (L3) 5 Normal Left Flexion (S2) 5 Normal Extension (L3) 5 Normal PT-OP-T Assessment and Plan Start: 02/19/19 13:43 Freq: Status: Active Protocol: Document 04/28/19 09:05 [facility] (Rec: 04/28/19 09:51 [facility] [id number]) Physical Therapy Assessment Goals gait Impairment limited walking ability Short Term Goal (STG) Pt will walk 1 mile consistantly at least 3x/week without inc of pain greater than 1 point on 10 point scale . 04/19-good progress 2x/week with 2 pool workouts and PT STG Duration achieved Correction Goal (LTG) Pt will be able to walk at least 4x/week without inc of L knee pain. LTG Duration 06/24/19 improved strength Impairment Impaired strength Short Term Goal (STG) Pt will be indep with HEP. STG Duration achieved As[employer] Text[employer] Supervisor Goal (LTG) Pt will have 5/5 LE strength in order to allow her to progress activity tolerance 04/19-significant improvement. LTG Duration achieved Assessment Summary Assessment Pt has made excellent progress with inc in activity tolerance, strength, and functional ability. She will cont HEP and walking progression indep. Physical Therapy Plan Discharge Physical Therapy Discharge Reasons Goals Met Discharge Comments Pt is indep with HEP and will cont to work on walking progression and strengthening and flexibility exercises.
== END 2019-05-21 14:57 | disposition home or self-care (01) ==
LOC: PHYS 09:00
PROVIDERS: PCP Nurse Practitioner; Visit Provider Registered Nurse
DX: M25.562 Pain in left knee (principal)
CPT/HCPCS: 97110; 97112; 97113; 97116; 97140; 97162

== ENCOUNTER → 2019-12-24 14:50 | Outpatient (CLI) | payer OTHER, MEDICAID, SELFPAY ==
[2019-12-24 15:32] LABS: Blood Urea Nitrogen 12 mg/dL (7-17); Carbon Dioxide 28 mmol/L (22-32); Chloride 99 mmol/L (98-107); Cholesterol 184 mg/dL (140-199); Estimated Glomerular Filt Rate > 60.0 mL/min (>60); Glucose 116 mg/dL (70-100); HDL Cholesterol 37 mg/dL (40-60); HEMOLYSIS < 15 (0-50); LDL Cholesterol Calculated 103 mg/dL (<100); Potassium 3.8 mmol/L (3.4-5.1); Sodium 138 mmol/L (137-145); Triglycerides 221 mg/dL (35-150)
== END ==
PROVIDERS: PCP Nurse Practitioner Family; Referring Provider Registered Nurse; Visit Provider Registered Nurse
DX: I10 Essential (primary) hypertension (principal)
CPT/HCPCS: 36415; 80048; 80061

== ENCOUNTER → 2020-05-26 10:01 | Outpatient (CLI) | payer OTHER, MEDICAID, SELFPAY ==
[2020-05-26 11:25] LABS: Hematocrit 39.4 % (36-46); Hemoglobin 13.7 g/dL (12.0-16.0); Mean Corpuscular HGB Conc 34.8 % (30-36); Mean Corpuscular Hemoglobin 32.8 PG (26-34); Mean Corpuscular Volume 94.2 fL (80-100); Platelet Count 228 X10^3/uL (150-400); Red Blood Cell Count 4.18 X10^6/uL (4.0-5.2); Red Cell Distribution Width 12.4 % (11.6-14.8); White Blood Cell Count 4.3 X10^3/uL (4.5-11.0)
[2020-05-26 11:56] LABS: BUN Creatinine Ratio 20.5 (6-22); Blood Urea Nitrogen 15 mg/dL (7-17); Calcium 9.6 mg/dL (8.4-10.2); Carbon Dioxide 30 mmol/L (22-32); Chloride 102 mmol/L (98-107); Estimated Glomerular Filt Rate > 60.0 mL/min (>60); Glucose 134 mg/dL (70-100); HEMOLYSIS < 15 (0-50); Potassium 3.7 mmol/L (3.4-5.1); Sodium 136 mmol/L (137-145)
[2020-05-26 12:14] LABS: Creatinine Urine Random 114.6 mg/dL
[2020-05-26 12:28] LABS: Microalbumi Creatinin Ratio Ur 5.2 ug/mg CR (<30); Microalbumin Urine Random < 0.6 mg/dL (0-1.6)
[2020-05-26 12:43] LABS: TSH w/ Reflex to FT4 2.14 uIU/mL (0.47-4.68)
== END ==
PROVIDERS: PCP Nurse Practitioner Family; Referring Provider Nurse Practitioner Family; Visit Provider Nurse Practitioner Family
DX: F32.9 Major depressive disorder, single episode, unspecified (principal); I10 Essential (primary) hypertension
CPT/HCPCS: 36415; 80048; 82043; 82570; 84443; 85027

== ENCOUNTER → 2020-06-13 10:12 | Outpatient (CLI) | payer OTHER, MEDICAID, SELFPAY | PROVIDERS: PCP Nurse Practitioner Family; Referring Provider Nurse Practitioner Family; Visit Provider Nurse Practitioner Family | DX: R73.01 Impaired fasting glucose (principal) | CPT/HCPCS: 36415; 83036 ==

== ENCOUNTER → 2020-06-14 07:58 | Outpatient (CLI) | payer OTHER, MEDICAID, SELFPAY ==
--- NOTE | 2020-06-14 07:59 | DI.ECHO.S_ITS ---
[place] +---------+ [facility] +---------+ : : [address] : [place] : : : : [id number] : : : : Phone: [phone]---------+ Echocardiogram Report + + :Name: ANGELA VALVERDE Study Date: 06/14/2020 Height: 67 in : :[facility] Weight: 252 lb : : Gender: Female BSA: 2.2 m2 : :: 1960 Age: 59 yrs BP: 143/91 mmHg: :Reason For Study: FAMILY HISTORY OF HEART DISEASE, : :HYPERTENSION : : Performed By: Mishel Cody : :Referring: RIZWANA WASHINGTON : + + Interpretation Summary The left ventricle is normal in size and wall thickness.The ejection fraction is estimated to be 50-55%. The right ventricle is normal in size and function. There is mild to moderate mitral regurgitation. Mild atherosclerotic plaque(s) in the aortic arch. Procedure: A two-dimensional transthoracic echocardiogram with color flow and Doppler was performed. The study quality was technically adequate. There is no prior echocardiogram noted for this patient. The patient was in normal sinus rhythm during the exam. Left Ventricle: The left ventricle is normal in size and wall thickness. The ejection fraction is estimated to be 50-55%. There are no focal wall motion abnormalities. MV E/A: 0.81 Med Peak E' Frank: 4.2 cm/sec E/E' med: 15.8. Right Ventricle: The right ventricle is normal in size and function. Atria: Both atria are normal in size. Mitral Valve: The mitral valve leaflets are slightly calcified. There is mild to moderate mitral regurgitation. The mitral regurgitant jet is eccentrically directed. Aortic Valve: The aortic valve is trileaflet. The aortic valve opens well. The aortic valve is not well visualized. There is no aortic valve stenosis. No aortic regurgitation is present. Tricuspid Valve: The tricuspid valve is not well visualized, but is grossly normal. Pulmonary artery pressures cannot be estimated because of the lack of a measurable TR jet velocity but the IVC suggests a CVP of around 3 mmHg. There is mild tricuspid regurgitation. Pulmonic Valve: The pulmonic valve is not well seen, but is grossly normal. There is a trace or physiologic amount of pulmonic regurgitation. Great Vessels: The aortic root is normal size. The ascending aorta is at the upper limits of normal in size. Mild atherosclerotic plaque(s) in the aortic arch. The IVC is of normal diameter and collapses greater than 50% with a sniff. This suggests a low right atrial pressure of 3 mm Hg. Pericardium/ Pleura There is no pericardial effusion. There is an anterior echo-free space consistent with a fat pad. There is no pleural effusion. MMode/2D Measurements & Calculations LVIDd: 5.0 cm LVOT diam: 2.1 cm LVIDs: 3.3 cm Ao root diam: 3.3 cm FS: 33.2 % asc Aorta Diam: 3.4 cm EPSS: 0.57 cm Ao Arch Diam (Prox Trans): 2.9 cm IVSd: 0.83 cm LVPWd: 1.1 cm LV aguila. diameter/BSA (cm/m^2): 2.2 LV sys. diameter/BSA (cm/m^2): 1.5 LA A2 area: 23.6 cm2 RA long axis: 5.2 cm LA A4 area: 15.6 cm2 RA area: 16.1 cm2 LA length (vol): 4.9 cm RA vol: 42.2 ml LA vol: 64.3 ml RA : 18.9 ml/m2 LA vol index: 28.8 ml/m2 IVC diam: 1.4 cm RVD1 (basal): 3.1 cm TAPSE: 2.0 cm Doppler Measurements & Calculations Ao V2 max: 127.3 cm/sec LVOT Max Frank: 88.2 cm/sec Ao V2 mean: 86.5 cm/sec LV V1 max P.1 mmHg Ao max P.5 mmHg LV V1 VTI: 21.6 cm Ao mean P.4 mmHg LEIGHA(I,D): 2.8 cm2 Ao V2 VTI: 27.3 cm LEIGHA(V,D): 2.5 cm2 sev ratio: 0.79 LEIGHA indexed to BSA (cm^2/m^2): 1.3 MV E max frank: 66.5 cm/sec PA V2 max: 91.7 cm/sec MV A max frank: 82.3 cm/sec PA V2 mean: 62.2 cm/sec MV E/A: 0.81 PA mean P.7 mmHg Med Peak E' Frank: 4.2 cm/sec PA pr(Accel): 22.5 mmHg E/E' med: 15.8 Lat Peak E' Frank: 7.8 cm/sec E/E' lat: 8.6 E/e' average: 12.2 MV dec time: 0.24 sec SVLVOT): 76.5 ml Reading Physician:03:18 PM
== END ==
PROVIDERS: PCP Nurse Practitioner Family; Referring Provider Nurse Practitioner Family; Visit Provider Nurse Practitioner Family
DX: I08.1 Rheumatic disorders of both mitral and tricuspid valves (principal); I70.0 Atherosclerosis of aorta; I10 Essential (primary) hypertension; Z82.49 Family history of ischemic heart disease and other diseases of the circulatory system
CPT/HCPCS: 93306

== ENCOUNTER → 2020-06-29 17:01 | Outpatient (CLI) | payer OTHER, MEDICAID, SELFPAY ==
--- NOTE | 2020-06-29 17:18 | DI.MG.S_ITS ---
Patient Name: ANGELA VALVERDE date: 1960 Sex: F Attending Physician: Ruiz Indications: Date: 06/29/2020 17:15 At the request of: RIZWANA WASHINGTON Procedure: MM screening mammo BI BILATERAL DIGITAL SCREENING MAMMOGRAM 3D/2D WITH CAD: 06/29/2020 CLINICAL: Routine screening. Comparison is made to exams dated: 02/17/2019 mammogram, 02/16/2018 mammogram, and 12/30/2016 mammogram - [facility]. There are scattered fibroglandular elements in both breasts. Current study was also evaluated with a Computer Aided Detection (CAD) system. No significant masses, calcifications, or other findings are seen in either breast. There has been no significant interval change. IMPRESSION: NEGATIVE There is no mammographic evidence of malignancy. A 1 year screening mammogram is recommended. This exam was interpreted at Station ID: [id number]. NOTE: For mammograms, a report in lay terms will be sent to the patient. Approximately 15% of breast malignancies will not be visualized mammographically. In the management of a palpable breast mass, a negative mammogram must not discourage biopsy of a clinically suspicious lesion. Electronically Signed By: Edson kim/malena:06/29/2020 18:14:40 letter sent: Normal Exam ACR BI-RADS Category 1: Negative [id number]
== END ==
PROVIDERS: PCP Nurse Practitioner Family; Referring Provider Nurse Practitioner Family; Visit Provider Nurse Practitioner Family
DX: Z12.31 Encounter for screening mammogram for malignant neoplasm of breast (principal)
CPT/HCPCS: 77063; 77067

== ENCOUNTER → 2020-09-09 15:31 | Outpatient (CLI) | payer OTHER, MEDICAID, SELFPAY ==
[2020-09-09 16:23] LABS: COVID19 -Nasal RAPID Negative (Negative)
== END ==
PROVIDERS: PCP Nurse Practitioner Family; Visit Provider Physician Assistant
DX: Z11.59 Encounter for screening for other viral diseases (principal)
CPT/HCPCS: 87635

== ENCOUNTER → 2020-09-11 15:10 | Outpatient (CLI) | payer OTHER, MEDICAID, SELFPAY ==
--- NOTE | 2020-09-11 16:06 | PM.TREADMILL ---
Cardiac Stress Test Report Referral & Results Date Patient Seen: 09/11/20 Time Patient Seen: 16:06 Requesting provider: Alnaa Freeman Indication: shortness of breath Rest ECG: sinus rhythm Procedure Note: Standard Nate protocol, 4:02, 4.5 METS Reduced exercise capacity, MALENA +35% Normal hemodynamic response to exercise No chest pain or anginal symptoms [address] depression in II, III, Avf, V4-V5. O2 sat 95% at peak exercise Impression: Equivocal exercise stress test Please note: Actual ECG tracings can be found in the PACS system.
--- NOTE | 2020-09-11 17:48 | DI.NM.S_ITS ---
DATE OF SERVICE: 09/11/2020 PROCEDURE: Exercise stress test. INDICATION: Shortness of breath. EXERCISE STRESS TEST: The patient walked on Nate protocol for 4 minutes and 20 seconds under the supervision of an attending staff. Her baseline blood pressure 120/82. Peak blood pressure 180/90. Maximum heart rate: She achieved 164, which was 102 percent of target heart rate. Baseline EKG revealed sinus rhythm. During stress, there were no convincing ischemic changes. There was some nonspecific ST changes. There was enhanced chronotropic response. The patient developed fatigue and shortness of breath. At peak exercise, her oxygen saturation was 95 percent. She achieved 7 METs of workload. CONCLUSION: Exercise stress test is negative for inducible ischemia. The patient walked on Nate protocol for 4 minutes and 20 seconds and developed shortness of breath and fatigue. Normal hemodynamic response except that there was enhanced chronotropic response. 7 METs of workload. No ischemic symptoms. No ischemic EKG changes or significant arrhythmias. At peak exercise, oxygen saturation was 95 percent. Na Burch - NOHEMI/juan r/kris doc#: [id number]/job#: [id number] dd: 09/11/2020 16:53:00 dt: 09/11/2020 17:36:00 DICTATING /COPIES TO: Alana Freeman MD COPIES MNE: RADHA;
== END ==
PROVIDERS: PCP Nurse Practitioner Family; Referring Provider Nurse Practitioner Family; Visit Provider Internal Medicine Cardiovascular Disease
DX: R06.02 Shortness of breath (principal)
CPT/HCPCS: 93017

== ENCOUNTER → 2020-09-13 12:55 | Outpatient (CLI) | payer OTHER, MEDICAID, SELFPAY ==
[2020-09-13 17:26] LABS: COVID19 -Nasal RAPID Negative (Negative)
== END ==
PROVIDERS: PCP Nurse Practitioner Family; Referring Provider Nurse Practitioner Family; Visit Provider Internal Medicine
DX: Z11.59 Encounter for screening for other viral diseases (principal)
CPT/HCPCS: 87635

== ENCOUNTER → 2020-09-14 06:57 | Outpatient (CLI) | payer OTHER, MEDICAID, SELFPAY ==
--- NOTE | 2020-09-24 10:47 | PM.PFT.1 ---
Pulmonary Function Test Referral & Results Date Patient Seen: 09/14/20 Requesting provider: Alana Freeman Results: The spirometry demonstrates an FVC of 2.70 L which is 72% of predicted. The FEV1 was measured at 1.99 L which is 69% of predicted. The FEV1/FVC ratio was 74 which is 94% of predicted. Following the administration of bronchodilator there was a 14% improvement in FEV1 and a 76% improvement in FEF 25-75%. Lung volumes show an SVC of 2.60 L which is 76% of predicted. The diffusing capacity was measured at 22.46 which is 79% of predicted. No hemoglobin value was provided, so no correction for potential anemia could be made, if appropriate. The maximum voluntary ventilation was reduced Interpretation: This study demonstrates mild obstructive lung disease based on reduction FEV1 although FEV1/FVC ratio is preserved. There is also evidence of some minor benefit following bronchodilator particularly small airway flow based on improvement in FEF 25-75% as above. There is also minimal reduction in lung volumes suggesting minimal restrictive lung disease There is also very minimal reduction diffusing capacity suggesting element of disease at the capillary alveolar level, unless patient is anemic
== END ==
PROVIDERS: PCP Nurse Practitioner Family; Referring Provider Nurse Practitioner Family; Visit Provider Internal Medicine Cardiovascular Disease
DX: R06.02 Shortness of breath (principal); Z87.891 Personal history of nicotine dependence; J98.8 Other specified respiratory disorders
CPT/HCPCS: 94060; 94726; 94729

== ENCOUNTER → 2020-10-11 12:41 | Outpatient (CLI) | payer OTHER, MEDICAID, SELFPAY ==
[2020-10-11 15:55] LABS: COVID19 -Nasal RAPID Negative (Negative)
== END ==
PROVIDERS: PCP Nurse Practitioner Family; Visit Provider Family Medicine Sleep Medicine
DX: Z20.828 Contact with and (suspected) exposure to other viral communicable diseases (principal); Z01.812 Encounter for preprocedural laboratory examination
CPT/HCPCS: 87635; C9803

== ENCOUNTER → 2020-11-01 06:57 | Outpatient (CLI) | payer OTHER, MEDICAID, SELFPAY ==
[2020-11-01 08:02] LABS: Add Manual Diff / Slide Review NO; Basophils Absolute Auto 0 /uL (0-100); Basophils Percent Auto 1.1 % (0-2); Eosinophils Absolute Auto 100 /uL (0-450); Eosinophils Percent Auto 2.1 % (2-4); Hematocrit 40.5 % (36-46); Lymphocytes Absolute Auto 1400 /uL (1100-4500); Lymphocytes Percent Auto 31.8 % (25-40); Mean Corpuscular HGB Conc 34.7 % (30-36); Mean Corpuscular Hemoglobin 33.5 PG (26-34); Mean Corpuscular Volume 96.5 fL (80-100); Monocytes Absolute Auto 600 /uL (0-900); Monocytes Percent Auto 14.5 % (3-14); Neutrophils Absolute Auto 2200 /uL (1500-7000); Neutrophils Percent Auto 50.5 % (50-75); Platelet Count 197 X10^3/uL (150-400); Red Blood Cell Count 4.19 X10^6/uL (4.0-5.2); White Blood Cell Count 4.3 X10^3/uL (4.5-11.0)
[2020-11-01 08:44] LABS: Alanine Aminotransferase 77 IU/L (<35); Albumin 4.3 g/dL (3.5-5.0); Albumin Globulin Ratio 1.3 (1.0-2.8); Alkaline Phosphatase 57 U/L (38-126); Aspartate Aminotransferase 85 IU/L (14-36); BUN Creatinine Ratio 19.5 (6-22); Bilirubin Total 0.7 mg/dL (0.2-1.3); Blood Urea Nitrogen 16 mg/dL (7-17); Calcium 9.5 mg/dL (8.4-10.2); Carbon Dioxide 30 mmol/L (22-32); Chloride 102 mmol/L (98-107); Cholesterol 203 mg/dL (140-199); Estimated Glomerular Filt Rate > 60.0 mL/min (>60); Globulin 3.3 g/dL (1.7-4.1); Glucose 137 mg/dL (70-100); HDL Cholesterol 42 mg/dL (40-60); HEMOLYSIS 21 (0-50); LDL Cholesterol Calculated 116 mg/dL (<100); Magnesium 2.1 mg/dL (1.6-2.3); Potassium 4.7 mmol/L (3.4-5.1); Sodium 138 mmol/L (137-145); Total Protein 7.6 g/dL (6.3-8.2); Triglycerides 224 mg/dL (35-150)
[2020-11-01 09:16] LABS: Thyroid Stimulating Hormone 2.51 uIU/mL (0.47-4.68)
--- OUTSIDE RECORDS SUMMARY | 2020-12-04 10:26 | XMS_ITS | Referral Summary ---
:1960 Author Organization Formerly [facility] Address [address] [place] [address] Care Team Providers Name Role Phone Aurora Melchor NP Primary Care Provider Reason for Referral Consultation (Routine) Status Reason Specialty Diagnoses / Referred By Referred To Procedures Contact Contact Closed Specialty Services Diagnoses Snoring [facility] Eva Garcia MD [address] [place] [address] [address] [phone] [place], [place] Phone: [phone] (Routine) Status Reason Specialty Diagnoses / Referred By Referred To Procedures Contact Contact Pending Review Diagnoses Palpitations [facility] Procedures ZIO Patch - 7 Day Placed During Visit MD Radha [address] [place] [address] [address] [place] [address] Diagnostic Imaging (Routine) Status Reason Specialty Diagnoses / Procedures Referred By Josy dawson Referred To Contact Closed Diagnoses Shortness of breath [facility] Procedures Complete PFT with DLCO [address] [facility] [address] [place] [address] [address] [phone] [place], [place] Phone: [phone] Phone: (Routine) Status Reason Specialty Diagnoses / Referred By Referred To Procedures Contact Contact Incomplete Diagnoses Shortness of breath [facility], Procedures CVL NON NUCLEAR STRESS TEST TREADMILL [facility] [address] [place] [address] [address] [place] [address] Reason for Visit Reason Comments Shortness of Breath Hypertension Palpitations Evaluate and Treat (Routine) Status Reason Specialty Diagnoses / Procedures Referred By Josy dawson Referred To Contact Closed Diagnoses Nonrheumatic mitral (valve) insufficiency Aurora Melchor NP [facility] Procedures [place] OFFICE OUTPATIENT VISIT [address] [place] [address] [address] [place], [place] [address] [place], [place] Phone: [phone] Phone: [phone] Fax: Encounter Details Date Type Department Care Team Description 08/24/2020 Office Visit Alana Jeff Shortness of breath (Primary Dx); [facility] MD Radha Nonrheumatic mitral valve regurgitation; [address] Essential hypertension; [facility], [address] Family history of ischemic heart disease ; D [place], [place] Anxiety; [place] [address] Palpitations; [id number] Snoring; [phone] Ex-smoker (Fax) Allergies No Known Allergiesdocumented as of this encounter (statuses as of 08/24/2020) Medications Medication Sig Dispensed Refills Start End Status Date Date losartan (COZAAR) 25 mg Take 25 mg by 0 Active tablet mouth daily hydroCHLOROthiazide Take 25 mg by 0 Active (HYDRODIURIL) 25 mg mouth daily tablet triamcinolone (KENALOG) Apply 0 Active 0.1 % lotion topically as needed escitalopram (LEXAPRO) Take 20 mg by 0 Discontinued 20 mg tablet mouth daily 020 (Disc ontinued by another clinician) documented as of this encounter (statuses as of 08/24/2020) Active Problems Problem Noted Date Nonrheumatic mitral valve regurgitation 08/24/2020 Essential hypertension 08/24/2020 Family history of ischemic heart disease 08/24/2020 Anxiety 08/24/2020 Palpitations 08/24/2020 Shortness of breath 08/24/2020 Ex-smoker 08/24/2020 Snoring 08/24/2020 documented as of this encounter (statuses as of 08/24/2020) Social History Tobacco Use Types Packs/Day Years Used Date Former Smoker Smokeless Tobacco: Never Used Alcohol Use Drinks/Week oz/Week Comments Yes Sex Assigned at Date Recorded Not on file documented as of this encounter Last Filed Vital Signs Vital Sign Reading Time Taken Comments Blood Pressure 128/82 08/24/2020 10:01 AM PDT Pulse 73 08/24/2020 10:01 AM PDT Temperature - - Respiratory Rate - - Oxygen Saturation - - Inhaled Oxygen Concentration - - Weight 116 kg (255 lb) 08/24/2020 10:01 AM PDT Height 170.2 cm (5' 7) 08/24/2020 10:01 AM PDT Body Mass Index 39.94 08/24/2020 10:01 AM PDT documented in this encounter Patient Instructions Patient InstructionsAlana Freeman MD - 08/24/2020 10:00 AM PDT Patient Education Dyspnea WHAT YOU NEED TO KNOW: Dyspnea is breathing difficulty or discomfort. You may have labored, painful, or shallow breathing. You may feel breathless or short of breath. Dyspnea can occur during rest or with activity. You may have dyspnea for a short time, or it might become chronic. Dyspnea is often a symptom of a disease or condition. DISCHARGE INSTRUCTIONS: Return to the emergency department if: ?? Your signs and symptoms are the same or worse within 24 hours of treatment. ?? You have shaking chills or a fever over 102??F. ?? You have new pain, pressure, or tightness in your chest. ?? You have a new or worse cough or wheezing, or you cough up blood. ?? You feel like you cannot get enough air. ?? The skin over your ribs or on your neck sinks in when you breathe. ?? You have a severe headache with vomiting and abdominal pain. ?? You feel confused or dizzy. Contact your healthcare provider or specialist if: ?? You have questions or concerns about your condition or care. Medicines: ?? Medicines may be used to treat the cause of your dyspnea. Medicines may reduce swelling in your airway or decrease extra fluid from around your heart or lungs. Other medicines may be used to decrease anxiety and help you feel calm and relaxed. ?? Take your medicine as directed. Contact your healthcare provider if you think your medicine is not helping or if you have side effects. Tell him or her if you are allergic to any medicine. Keep a list of the medicines, vitamins, and herbs you take. Include the amounts, and when and why you take them. Bring the list or the pill bottles to follow-up visits. Carry your medicine list with you in caseof an emergency. Manage long-term dyspnea: ?? Create an action plan. You and your healthcare provider can work together to create a plan for how to handle episodes of dyspnea. The plan can include daily activities, treatment changes, and what to do if you have severe breathing problems. ?? Lean forward on your elbows when you sit. This helps your lungs expand and may make it easier tobreathe. ?? Use pursed-lip breathing any time you feel short of breath. Breathe in through your nose and then slowly breathe out through your mouth with your lips slightly puckered. It should take you twice aslong to breathe out as it did to breathe in. ?? Do not smoke. Nicotine and other chemicals in cigarettes and cigars can cause lung damage and make it harder to breathe. Ask your healthcare provider for information if you currently smoke and needhelp to quit. E-cigarettes or smokeless tobacco still contain nicotine. Talk to your healthcare provider before you use these products. ?? Reach or maintain a healthy weight. Your healthcare provider can help you create a safe weight loss plan if you are overweight. ?? Exercise as directed. Exercise can help your lungs work more easily. Exercise can also help you lose weight if needed. Try to get at least 30 minutes of exercise most days of the week. Your healthcare provider can help you create an exercise plan that is safe for you. Follow up with your healthcare provider or specialist as directed: Write down your questions so youremember to ask them during your visits. ?? Copyright [employer] 2019 Information is for End User's use only and may not be sold, redistributed or otherwise used for commercial purposes. All illustrations and images included in CareNotes?? are the copyrighted property of [employer] or [employer] The above information is an braid folder only. It is not intended as medical advice for individual conditions or treatments. Talk to your doctor, nurse or pharmacist before following any medical regimen to see if it is safe and effective for you. documented in this encounter Progress Notes Alana Freeman MD - 08/24/2020 10:00 AM PDT Subjective Patient ID: Na Burch is a 59 y.o. female that had concerns including Shortness of Breath, Hypertension, and Palpitations. HPI: This 59 years old pleasant female, history of HTN, anxiety, iron deficiency anemia when she was young, got improved as per the patient, history of tobacco abuse for about 20 years, persistentexcessive alcohol use, weight gain, chronic shortness of breath referred to us for cardiac evaluation. According to the patient, recently she was told by her biological mother that she has family historyof heart disease. Her mother had bypass surgery at the age of 70. From last 18 years she has put on more weight. She has chronic shortness of breath especially climbing stairs. No wheezing or chronic cough or active chest pain. She has also gets intermittent anxiety episodes which she has been experiencing since childhood. During those episodes she feels that her heart will jump out with palpitation and other anxiety features. No previous history of myocardial infarction congestive heart failure rheumatic heart disease or congenital heart disease or DVT or pulmonary embolism. Denies any excessive caffeine intake. She stopped smoking about 20 years ago. Drinks beer and hard drink which she claims too much. She denies any withdrawal symptoms. 2D echo: June 14, 2020: Normal LV size, LVEF 50 to 55%, normal RV, mild to moderate MR, normal atria, E to E prime ratio 15.8 and E/A ratio 0.81, normal left atrium right atrial pressure about 3 mmHg, mild atherosclerotic plaque in the aortic arch. June 13, 2020: Hemoglobin A1c 6.[address]-T changes, QTC 4 1 0 ms, early transition Past Medical History: Diagnosis Date ??? Hypertension History reviewed. No pertinent surgical history. History reviewed. No pertinent family history. Social History Socioeconomic History ??? Marital status: Spouse name: Not on file ??? Number of children: Not on file ??? Years of education: Not on file ??? Highest education level: Not on file Occupational History ??? Not on file Social Needs ??? Financial resource strain: Not on file ??? Food insecurity Worry: Not on file Inability: Not on file ??? Transportation needs Medical: Not on file Non-medical: Not on file Tobacco Use ??? Smoking status: Former Smoker ??? Smokeless tobacco: Never Used Substance and Sexual Activity ??? Alcohol use: Yes ??? Drug use: Yes Types: Marijuana ??? Sexual activity: Not on file Lifestyle ??? Physical activity Days per week: Not on file Minutes per session: Not on file ??? Stress: Not on file Relationships ??? Social connections Talks on phone: Not on file Gets together: Not on file Attends pentecostal service: Not on file Active member of club or organization: Not on file Attends meetings of clubs or organizations: Not on file Relationship status: Not on file Other Topics Concern ??? Not on file Social History Narrative ??? Not on file No Known Allergies Current Medication List Sig hydroCHLOROthiazide (HYDRODIURIL) 25 mg tablet Take 25 mg by mouth daily losartan (COZAAR) 25 mg tablet Take 25 mg by mouth daily triamcinolone (KENALOG) 0.1 % lotion Apply topically as needed escitalopram (LEXAPRO) 20 mg tablet (Discontinued) Take 20 mg by mouth daily Review of Systems Constitutional: Positive for fatigue. Negative for fever. HENT: Negative for hearing loss. Eyes: Negative for visual disturbance. Respiratory: Positive for shortness of breath. Negative for chest tightness. Cardiovascular: Positive for palpitations. Negative for chest pain and leg swelling. Gastrointestinal: Negative for blood in stool. Endocrine: Negative for polydipsia. Genitourinary: Negative for hematuria. Musculoskeletal: Negative for myalgias. Skin: Negative for rash. Neurological: Negative for syncope and weakness. Hematological: Does not bruise/bleed easily. Psychiatric/Behavioral: Negative for agitation. The patient is nervous/anxious. Objective BP 128/82 (BP Location: Left arm, Patient Position: Sitting) Pulse 73 Ht 1.702 m Wt 116 kg BMI 39.94 kg/m?? Physical Exam: General Appearance: Obese, pleasant, cooperative, no apparent distress HENT: No obvious jaundice, no xanthelasma Neck: No obvious JVD Respiratory: clear to auscultation and percussion, no rales or wheeze Cardiovascular: Regular rhythm, S1-S2 normal, no S3 no S4, no murmur no significant murmur Pulses: No carotid bruit, no obvious abdominal bruit, no evidence of critical limb ischemia Abdomen: Nontender, no hepatosplenomegaly, no obvious pulsatile mass, obese Extremities: No clubbing, cyanosis, no significant pedal edema, fleshy feet Neuro: Alert oriented to time place and person, no obvious motor or sensory deficit. Psych: Appropriate affect, normal mentation and memory Skin: No gangrene or ulcer Assessment/Plan Diagnoses and all orders for this visit: Shortness of breath - CVL NON NUCLEAR STRESS TEST TREADMILL; Future - Complete PFT with DLCO; Future - TSH; Future - Magnesium Expires 12 Months; Future - Comprehensive Metabolic Panel (CMP) Expires 12 Months; Future - CBC w/ diff Lab Collect; Future Nonrheumatic mitral valve regurgitation Essential hypertension - ECG 12 Lead (Clinic - Same Day) - Lipid panel Expires 12 Months; Future Family history of ischemic heart disease - ECG 12 Lead (Clinic - Same Day) Anxiety Palpitations - ZIO Patch - 7 Day Placed During Visit; Future Snoring - *[facility] Referral to Sleep Medicine Ex-smoker Assessment/Plan Comments: Her BMI is about 39.94. Rhythm is sinus. Her shortness of breath appears to be multifactorial. On2D echo left ventricle is not dilated. Structurally mitral valve did not show any significant abnormality. There is mild to moderate mitral regurgitation without any significant left atrium enlargement or pulmonary artery systolic pressure. Clinically she does not appears to be in congestive heart failure. Has history of smoking about 1 pack/day for 20 years as well as history of excessive alcohol use. Clinically I suspect that she may have sleep apnea. Patient claims that in the past she has iron deficiency anemia which has improved. At present denies any bleeding. From cardiac perspectivewill get exercise stress test for CAD risk stratification as well as pulmonary function test and Holter monitor. She will benefit with sleep apnea evaluation. Will check lipid profile, electrolytes as well as CBC and TSH. Follow-up after that tests. Patient was examined in the presence of AV Jesus. In the interim, if patient develops worsening of cardiovascular symptoms, advised to call us. This note was generated utilizing voice recognition software. While attempts have been made to correct mistakes, common errors may occur, including substitution of words that sound phonetically similar to the intended word as well as random substitution errors. Please take this into consideration and use clinical context when necessary. Electronically signed by Alana Freeman MD 08/24/2020 10:37 AM documented in this encounter Plan of Treatment Upcoming Encounters Date Type Specialty Care Team Description 10/17/2020 Office Visit Cardiology Alana Freeman MD [address] [place] [address] [phone] Scheduled Orders Name Type Priority Associated Diagnoses Order S chedule CVL NON NUCLEAR Imaging Routine Shortness of breath 1 Occ urrences STRESS TEST TREADMILL starti ng 08/24/2020 until 2 Complete PFT with PFT Routine Shortness of breath 1 O ccurrences DLCO starting 2019 until 1 TSH Lab Routine Shortness of breath Expected : 08/24/2020, Expires: 2020 Magnesium Expires 12 Lab Routine Shortness of breath Expected: Months 08/24/2020, Expires: 2020 Lipid panel Expires Lab Routine Essential Expected : 12 Months hypertension 08/24/2020, Expires: 2020 Comprehensive Lab Routine Shortness of breath Expecte d: Metabolic Panel (CMP) 2019, Expires 12 Months Expires: 1 CBC w/ diff Lab Lab Routine Shortness of breath Expec kendall: Collect 08/24/2020, Expires: 2020 ZIO Patch - 7 Day Cardiac Services Routine Palpitations Expect ed: Placed During Visit 08/24/20 20, Expires: 2021 Scheduled Referrals Name Type Priority Associated Diagnoses Order S chedule *[facility] MV Referral Outpatient Referral Routine Snoring Orde red: to Sleep Medicine 08/24/2020 documented as of this encounter Procedures Procedure Name Priority Date/Time Associated Diagnosis Comme nts ECG 12-LEAD Routine 08/24/2020 10:04 AM Essential Results for this PDT hypertension procedure are in the Family history of results se ction. ischemic heart disease documented in this encounter Results ECG 12 Lead (Clinic - Same Day) (08/24/2020 10:04 AM PDT) Narrative Performed At This result has an attachment that is no t available. Result approved by Alana Freeman MD on 08/24/20 documented in this encounter Visit Diagnoses Diagnosis Shortness of breath - Primary Nonrheumatic mitral valve regurgitation Essential hypertension Unspecified essential hypertension Family history of ischemic heart disease Anxiety Anxiety state, unspecified Palpitations Snoring Other dyspnea and respiratory abnormalit y Ex-smoker Personal history of tobacco use, present ing hazards to health documented in this encounter Insurance Payer Benefit Plan / Subscriber ID Effective Dates Phone Addre ss Type Group [employer] [id number] 2019-Present MANAGED OPTIONS documented as of this encounter Advance Directives Documents on File Type Date 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
== END ==
PROVIDERS: PCP Nurse Practitioner Family; Referring Provider Internal Medicine Cardiovascular Disease; Visit Provider Internal Medicine Cardiovascular Disease
DX: R06.02 Shortness of breath (principal); I10 Essential (primary) hypertension
CPT/HCPCS: 36415; 80053; 80061; 83735; 84443; 85025

== ENCOUNTER → 2020-12-06 15:30 | Outpatient (CLI) | payer OTHER, MEDICAID, SELFPAY ==
[2020-12-06 18:24] LABS: Alanine Aminotransferase 99 IU/L (<35); Albumin 4.6 g/dL (3.5-5.0); Albumin Globulin Ratio 1.2 (1.0-2.8); Alkaline Phosphatase 63 U/L (38-126); Aspartate Aminotransferase 88 IU/L (14-36); Bilirubin Total 0.4 mg/dL (0.2-1.3); Bilirubin Unconjugated 0.4 mg/dL (0.0-1.1); Globulin 3.8 g/dL (1.7-4.1); HEMOLYSIS < 15 (0-50); Total Protein 8.4 g/dL (6.3-8.2)
[2020-12-07 07:39] LABS: HBsAg Screen Negative (Negative); Hepatitis A Antibody IgM Negative (Negative); Hepatitis B Core Antibody IgM Negative (Negative); Hepatitis C Antibody <0.1 s/co ratio (0.0-0.9)
== END ==
PROVIDERS: PCP Nurse Practitioner Family; Referring Provider Nurse Practitioner Family; Visit Provider Nurse Practitioner Family
DX: K76.0 Fatty (change of) liver, not elsewhere classified (principal); R79.89 Other specified abnormal findings of blood chemistry; Z72.89 Other problems related to lifestyle
CPT/HCPCS: 36415; 80074; 80076

== ENCOUNTER → 2020-12-19 07:41 | Outpatient (CLI) | payer OTHER, MEDICAID, SELFPAY ==
--- NOTE | 2020-12-19 07:42 | DI.US.S_ITS ---
PROCEDURE: US ABDOMEN COMPLETE INDICATIONS: ELEVATED LIVER ENZYMES TECHNIQUE: Real-time scanning was performed of the abdominal and retroperitoneal organs, with image documentation. COMPARISON: [facility], US, ABDOMEN COMPLETE, 03/20/2017, 8:02. FINDINGS: Liver: The liver demonstrates mildly prominent size. The liver demonstrates generalized moderately increased echogenicity. This decreases ultrasound sensitivity for detection of hepatic masses. The main portal vein demonstrates normal size and demonstrates normal appearing, hepatopetal flow. Gallbladder: No findings of gallstones or sludge are seen. The gallbladder wall is not thickened, measuring 3 mm or less. No specific pericholecystic fluid is seen. The sonographic Vinson sign is negative. Biliary ducts: Intrahepatic bile ducts are non-dilated. Extrahepatic bile duct caliber measures 9 mm. Normal is 6-7 mm or less in diameter, or 10 mm or less post-cholecystectomy. Pancreas: Visualized portions of the pancreas are sonographically normal. Spleen: Spleen is normal in size and homogeneous in echotexture. Kidneys: Kidneys are normal in size and echotexture. Right kidney measures 10.2 cm long; left kidney measures 10.9 cm long. No hydronephrosis or nephrolithiasis. No solid masses. At the superior pole of the right kidney, there is a 9 mm simple cyst. On the left, there is a dromedary hump seen. Aorta: Visualized aorta is normal in caliber at less than 3 cm. Iliacs: Proximal common iliac arteries are normal in caliber at less than 2.5 cm. IVC: Intrahepatic inferior vena cava is patent. Miscellaneous: No free abdominal fluid. IMPRESSION: The liver demonstrates increased echogenicity. This finding is nonspecific, yet it is most commonly attributed to fatty infiltration. Mildly dilated common bile duct at 9 mm. If clinically appropriate, an MRCP could be considered for further evaluation (assuming that there is no contraindication to MRI). 9 mm simple right renal cyst incidentally noted. Dictated by: Joe Red M.D. on 12/19/2020 at 8:41 Approved by: Joe Red M.D. on 12/19/2020 at 8:43
== END ==
PROVIDERS: PCP Nurse Practitioner Family; Referring Provider Nurse Practitioner Family; Visit Provider Nurse Practitioner Family
DX: K76.0 Fatty (change of) liver, not elsewhere classified (principal); R79.89 Other specified abnormal findings of blood chemistry; N28.1 Cyst of kidney, acquired; K83.8 Other specified diseases of biliary tract; Z72.89 Other problems related to lifestyle
CPT/HCPCS: 76700

== ENCOUNTER → 2020-12-29 17:38 | Outpatient (CLI) | payer OTHER, MEDICAID, SELFPAY ==
--- NOTE | 2020-12-29 17:39 | DI.MRI.S_ITS ---
PROCEDURE: MR ABDOMEN WO CON INDICATIONS: abnormal abd US, bile duct dilation TECHNIQUE: Coronal HASTE through the abdomen, axial 2-D FLASH in- and [id number], and breath-hold T2 FSE with fat saturation through the biliary system and pancreas. Oblique coronal and axial thin-slice HASTE, radial thick-slab HASTE centered on the extrahepatic bile ducts. Intravenous secretin: Not requested. COMPARISON: [facility], US, US ABDOMEN COMPLETE, 12/19/2020, 8:05. FINDINGS: Image quality: Excellent. Pancreas and biliary system: Intrahepatic bile ducts are of normal caliber. The common hepatic duct is dilated immediately after the confluence measuring up to 8 mm. The proximal common duct is dilated measuring up to 10 mm, but demonstrates a smooth contour. It tapers normally to the ampulla and there is no filling defect. The gallbladder is normal without stones or wall thickening. Cystic duct morphology is normal. The pancreatic duct is nondilated. Ductal anatomy is classic. Pancreas is normal in morphology, without adjacent soft tissue edema. Other solid organs: Liver is normal in size. There is moderate diffuse parenchymal signal drop on T1 out of phase imaging. There is relative sparing in the gallbladder fossa. Spleen is normal in size. No adrenal nodules. Both kidneys are normal in size, without hydronephrosis. Nodes and vessels: No retroperitoneal or mesenteric adenopathy by size criteria. Aorta and inferior vena cava are normal in size. Bowel and peritoneum: Unenhanced bowel loops are normal in caliber. No free fluid. Lung bases: No basal pleural effusions. Heart size is normal. Tiny hiatal hernia. Bones and soft tissues: No ventral hernias. Vertebral body hemangioma in T9, T11, and T12. Bone marrow is otherwise of normal overall signal. IMPRESSION: 1. Smooth mild dilatation of the common hepatic and common bile ducts without MR evidence of filling defect such as stone. Stricture at the ampulla or within the distal duct is possible, not excluded on this exam, however correlation with LFTs to determine clinical significance of the ductal dilatation dilatation is recommended prior to surgical intervention. 2. Normal pancreatic duct caliber and morphology. 3. Moderate hepatic steatosis. Dictated by: Charlotte Green M.D. on 12/31/2020 at 9:28 Approved by: Charlotte Green M.D. on 12/31/2020 at 9:39
== END ==
PROVIDERS: PCP Nurse Practitioner Family; Referring Provider Nurse Practitioner Family; Visit Provider Nurse Practitioner Family
DX: R93.5 Abnormal findings on diagnostic imaging of other abdominal regions, including retroperitoneum (principal); K83.8 Other specified diseases of biliary tract; K76.0 Fatty (change of) liver, not elsewhere classified
CPT/HCPCS: 74181

== ENCOUNTER → 2021-02-15 12:28 | Outpatient (CLI) | payer OTHER, MEDICAID, SELFPAY ==
[2021-02-15] MEDS: COVID-19 VACC #1, MRNA(MOD) 100 MCG/0.5 ML VIAL IM (12:37)
== END ==
PROVIDERS: PCP Nurse Practitioner Family; Visit Provider Internal Medicine
DX: Z23 Encounter for immunization (principal)
CPT/HCPCS: 0011A; 91301

== ENCOUNTER → 2021-03-15 08:17 | Outpatient (CLI) | payer OTHER, MEDICAID, SELFPAY ==
[2021-03-15] MEDS: COVID-19 VACC #2, MRNA(MOD) 100 MCG/0.5 ML VIAL IM (08:28)
== END ==
PROVIDERS: PCP Nurse Practitioner Family; Visit Provider Internal Medicine
DX: Z23 Encounter for immunization (principal)
CPT/HCPCS: 0012A; 91301

== ENCOUNTER → 2021-05-11 09:48 | Outpatient (CLI) | payer OTHER, MEDICAID, SELFPAY ==
[2021-05-11 10:42] LABS: Alanine Aminotransferase 28 IU/L (<35); Albumin 4.1 g/dL (3.5-5.0); Albumin Globulin Ratio 1.2 (1.0-2.8); Alkaline Phosphatase 60 U/L (38-126); Aspartate Aminotransferase 37 IU/L (14-36); Bilirubin Total 0.5 mg/dL (0.2-1.3); Bilirubin Unconjugated 0.4 mg/dL (0.0-1.1); Globulin 3.3 g/dL (1.7-4.1); HEMOLYSIS < 15 (0-50); Total Protein 7.4 g/dL (6.3-8.2)
== END ==
PROVIDERS: PCP Nurse Practitioner Family; Referring Provider Internal Medicine Gastroenterology; Visit Provider Internal Medicine Gastroenterology
DX: K38.8 Other specified diseases of appendix (principal)
CPT/HCPCS: 36415; 80076

== ENCOUNTER → 2021-08-01 16:51 | Outpatient (CLI) | payer OTHER, MEDICAID, SELFPAY ==
--- NOTE | 2021-08-01 | DI.MG.S_ITS ---
BILATERAL DIGITAL SCREENING MAMMOGRAM 3D/2D WITH CAD: 08/01/2021 CLINICAL: Routine screening. Comparison is made to exams dated: 06/29/2020 mammogram, 02/17/2019 mammogram, and 02/16/2018 mammogram - [facility]. There are scattered fibroglandular elements in both breasts. Current study was also evaluated with a Computer Aided Detection (CAD) system. No significant masses, calcifications, or other findings are seen in either breast. There has been no significant interval change. IMPRESSION: NEGATIVE There is no mammographic evidence of malignancy. A 1 year screening mammogram is recommended. This exam was interpreted at Station ID: [id number]. NOTE: For mammograms, a report in lay terms will be sent to the patient. Approximately 15% of breast malignancies will not be visualized mammographically. In the management of a palpable breast mass, a negative mammogram must not discourage biopsy of a clinically suspicious lesion. Electronically Signed By: Hugh quinteros/malena:08/02/2021 08:46:22 letter sent: Normal Exam ACR BI-RADS Category 1: Negative [id number]
== END ==
PROVIDERS: PCP Nurse Practitioner Family; Referring Provider Nurse Practitioner Family; Visit Provider Nurse Practitioner Family
DX: Z12.31 Encounter for screening mammogram for malignant neoplasm of breast (principal)
CPT/HCPCS: 77063; 77067

== ENCOUNTER → 2021-08-29 07:13 | Outpatient (CLI) | payer OTHER, MEDICAID, SELFPAY ==
[2021-08-29 08:24] LABS: Add Manual Diff / Slide Review NO; Basophils Absolute Auto 0 /uL (0-100); Basophils Percent Auto 0.8 % (0-2); Eosinophils Absolute Auto 100 /uL (0-450); Eosinophils Percent Auto 3.1 % (2-4); Hematocrit 37.2 % (36-46); Hemoglobin 12.9 g/dL (12.0-16.0); Lymphocytes Absolute Auto 1400 /uL (1100-4500); Lymphocytes Percent Auto 32.1 % (25-40); Mean Corpuscular HGB Conc 34.7 % (30-36); Mean Corpuscular Hemoglobin 30.3 PG (26-34); Mean Corpuscular Volume 87.5 fL (80-100); Monocytes Absolute Auto 500 /uL (0-900); Neutrophils Absolute Auto 2200 /uL (1500-7000); Platelet Count 217 X10^3/uL (150-400); Red Blood Cell Count 4.25 X10^6/uL (4.0-5.2); Red Cell Distribution Width 12.8 % (11.6-14.8); White Blood Cell Count 4.3 X10^3/uL (4.5-11.0)
[2021-08-29 08:51] LABS: Alanine Aminotransferase 28 IU/L (<35); Albumin 4.1 g/dL (3.5-5.0); Albumin Globulin Ratio 1.4 (1.0-2.8); Alkaline Phosphatase 65 U/L (38-126); Aspartate Aminotransferase 31 IU/L (14-36); BUN Creatinine Ratio 18.8 (6-22); Bilirubin Total 0.4 mg/dL (0.2-1.3); Blood Urea Nitrogen 16 mg/dL (7-17); Calcium 9.2 mg/dL (8.4-10.2); Carbon Dioxide 29 mmol/L (22-32); Chloride 101 mmol/L (98-107); Estimated Glomerular Filt Rate > 60.0 mL/min (>60); Globulin 2.9 g/dL (1.7-4.1); Glucose 123 mg/dL (80-110); HEMOLYSIS < 15 (0-50); Potassium 3.8 mmol/L (3.4-5.1); Sodium 139 mmol/L (137-145)
[2021-08-29 17:34] LABS: Hemoglobin A1C% w Est Avg Glu 6.3 % (4.0-6.0)
== END ==
PROVIDERS: PCP Nurse Practitioner Family; Referring Provider Nurse Practitioner Family; Visit Provider Nurse Practitioner Family
DX: E66.9 Obesity, unspecified (principal); F10.11 Alcohol abuse, in remission; F32.9 Major depressive disorder, single episode, unspecified; I10 Essential (primary) hypertension; R60.0 Localized edema; R73.9 Hyperglycemia, unspecified
CPT/HCPCS: 36415; 80053; 83036; 85025

== ENCOUNTER → 2022-07-19 08:39 | Outpatient (CLI) | payer OTHER, SELFPAY ==
[2022-07-19 09:28] LABS: Add Manual Diff / Slide Review NO; Basophils Absolute Auto 100 /uL (0-100); Basophils Percent Auto 1.1 % (0-2); Eosinophils Absolute Auto 100 /uL (0-450); Eosinophils Percent Auto 1.8 % (2-4); Hematocrit 39.8 % (36-46); Hemoglobin 14.1 g/dL (12.0-16.0); Lymphocytes Absolute Auto 1400 /uL (1100-4500); Lymphocytes Percent Auto 31.9 % (25-40); Mean Corpuscular HGB Conc 35.5 % (30-36); Mean Corpuscular Hemoglobin 32.9 PG (26-34); Mean Corpuscular Volume 92.9 fL (80-100); Monocytes Absolute Auto 500 /uL (0-900); Neutrophils Absolute Auto 2400 /uL (1500-7000); Neutrophils Percent Auto 53.2 % (50-75); Platelet Count 204 X10^3/uL (150-400); Red Blood Cell Count 4.28 X10^6/uL (4.0-5.2); Red Cell Distribution Width 12.7 % (11.6-14.8); White Blood Cell Count 4.5 X10^3/uL (4.5-11.0)
[2022-07-19 09:30] LABS: Hemoglobin A1C% w Est Avg Glu 5.5 % (4.0-6.0)
[2022-07-19 09:46] LABS: Cholesterol 188 mg/dL (140-199); HDL Cholesterol 42 mg/dL (40-60); LDL Cholesterol Calculated 119 mg/dL (<100); Triglycerides 133 mg/dL (35-150)
[2022-07-19 10:19] LABS: TSH w/ Reflex to FT4 2.77 uIU/mL (0.47-4.68)
== END ==
PROVIDERS: PCP Pediatrics; Referring Provider Pediatrics; Visit Provider Pediatrics
DX: E66.9 Obesity, unspecified (principal); E78.2 Mixed hyperlipidemia; I10 Essential (primary) hypertension; R73.03 Prediabetes
CPT/HCPCS: 36415; 80061; 83036; 84443; 85025

== ENCOUNTER → 2022-08-05 07:33 | Outpatient (CLI) | payer OTHER, SELFPAY ==
--- NOTE | 2022-08-05 07:35 | DI.MG.S_ITS ---
BILATERAL DIGITAL SCREENING MAMMOGRAM 3D/2D WITH CAD: 08/05/2022 CLINICAL: Routine screening. Comparison is made to exam dated: 08/01/2021 mammogram - [facility]. Both breasts are almost entirely fatty (category a/<25% glandular tissue). Current study was also evaluated with a Computer Aided Detection (CAD) system. No significant masses, calcifications, or other findings are seen in either breast. There has been no significant interval change. IMPRESSION: NEGATIVE There is no mammographic evidence of malignancy. A 1 year screening mammogram is recommended. Based on the Tyrer Cuzick model (a risk assessment model) the patient's lifetime risk is 4.2% and her 10 year risk is 1.7%. According to the ACR, ACS, and NCCN guidelines, an annual breast MRI exam along with mammogram is recommended if the patient's lifetime risk is 20% or greater. This exam was interpreted at Station ID: [id number]. NOTE: For mammograms, a report in lay terms will be sent to the patient. Approximately 15% of breast malignancies will not be visualized mammographically. In the management of a palpable breast mass, a negative mammogram must not discourage biopsy of a clinically suspicious lesion. Electronically Signed By: Charlotte schulte/malena:08/05/2022 12:18:10 letter sent: Normal Exam ACR BI-RADS Category 1: Negative [id number]
== END ==
PROVIDERS: PCP Family Medicine; Referring Provider Pediatrics; Visit Provider Pediatrics
DX: Z12.31 Encounter for screening mammogram for malignant neoplasm of breast (principal)
CPT/HCPCS: 77063; 77067

== ENCOUNTER → 2023-09-06 | Outpatient (CLI) | payer OTHER, SELFPAY ==
--- NOTE | 2023-09-06 13:03 | DI.MG.S_ITS ---
BILATERAL DIGITAL SCREENING MAMMOGRAM 3D/2D WITH CAD: 09/06/2023 CLINICAL: Routine screening. Comparison is made to exams dated: 08/05/2022 mammogram, 08/01/2021 mammogram, and 06/29/2020 mammogram - [facility]. Both breasts are almost entirely fatty (category a/<25% glandular tissue). Current study was also evaluated with a Computer Aided Detection (CAD) system. No significant masses, calcifications, or other findings are seen in either breast. There has been no significant interval change. IMPRESSION: NEGATIVE There is no mammographic evidence of malignancy. A 1 year screening mammogram is recommended. Based on the Tyrer Cuzick model (a risk assessment model) the patient's lifetime risk is 4.1% and her 10 year risk is 1.7%. According to the ACR, ACS, and NCCN guidelines, an annual breast MRI exam along with mammogram is recommended if the patient's lifetime risk is 20% or greater. This exam was interpreted at Station ID: [id number]. NOTE: For mammograms, a report in lay terms will be sent to the patient. Approximately 15% of breast malignancies will not be visualized mammographically. In the management of a palpable breast mass, a negative mammogram must not discourage biopsy of a clinically suspicious lesion. Electronically Signed By: Reese ponce/malena:09/11/2023 07:54:28 letter sent: Normal Exam ACR BI-RADS Category 1: Negative [id number]
== END ==
LOC: MAMMO 13:02
PROVIDERS: PCP Family Medicine; Referring Provider Family Medicine; Visit Provider Family Medicine
DX: Z12.31 Encounter for screening mammogram for malignant neoplasm of breast (principal)
CPT/HCPCS: 77063; 77067

== ENCOUNTER → 2024-04-14 10:07 | Outpatient (CLI) | payer OTHER, SELFPAY ==
[2024-04-14 10:45] LABS: Hemoglobin A1C% w Est Avg Glu 5.7 % (4.0-6.0)
[2024-04-14 10:53] LABS: Alanine Aminotransferase 27 IU/L (<35); Albumin 4.2 g/dL (3.5-5.0); Albumin Globulin Ratio 1.3 (1.0-2.8); Alkaline Phosphatase 65 U/L (38-126); Aspartate Aminotransferase 42 IU/L (14-36); BUN Creatinine Ratio 19.2 (6-22); Bilirubin Total 0.7 mg/dL (0.2-1.3); Blood Urea Nitrogen 14 mg/dL (7-17); Carbon Dioxide 28 mmol/L (22-32); Chloride 105 mmol/L (98-107); Cholesterol 180 mg/dL (140-199); Estimated Glomerular Filt Rate > 60 mL/min (>60); Globulin 3.3 g/dL (1.7-4.1); Glucose 124 mg/dL (80-110); HDL Cholesterol 52 mg/dL (40-60); HEMOLYSIS < 15 (0-50); LDL Cholesterol Calculated 91 mg/dL (<100); Potassium 4.2 mmol/L (3.4-5.1); Sodium 136 mmol/L (137-145); Total Protein 7.5 g/dL (6.3-8.2); Triglycerides 187 mg/dL (35-150)
[2024-04-14 10:58] LABS: High Sensitivity CRP - Cardiac 0.8 mg/L (1.0-3.0)
== END ==
PROVIDERS: PCP Family Medicine; Referring Provider Family Medicine; Visit Provider Family Medicine
DX: R73.03 Prediabetes (principal); E78.2 Mixed hyperlipidemia; I10 Essential (primary) hypertension
CPT/HCPCS: 36415; 80053; 80061; 83036; 86140

== ENCOUNTER → 2024-09-16 17:14 | Outpatient (CLI) | payer OTHER, SELFPAY ==
--- NOTE | 2024-09-16 17:15 | DI.MG.S_ITS ---
BILATERAL DIGITAL SCREENING MAMMOGRAM 3D/2D WITH CAD: 09/16/2024 CLINICAL: Routine screening. Comparison is made to exams dated: 09/06/2023 mammogram, 08/05/2022 mammogram, and 08/01/2021 mammogram - [facility]. The breasts are almost entirely fatty (category a/<25% glandular tissue). Current study was also evaluated with a Computer Aided Detection (CAD) system. No significant masses, calcifications, or other findings are seen in either breast. There has been no significant interval change. IMPRESSION: NEGATIVE There is no mammographic evidence of malignancy. A 1 year screening mammogram is recommended. Based on the Tyrer Cuzick model (a risk assessment model) the patient's lifetime risk is 3.9% and her 10 year risk is 1.7%. According to the ACR, ACS, and NCCN guidelines, an annual breast MRI exam along with mammogram is recommended if the patient's lifetime risk is 20% or greater. This exam was interpreted at Station ID: [id number]. NOTE: For mammograms, a report in lay terms will be sent to the patient. Approximately 15% of breast malignancies will not be visualized mammographically. In the management of a palpable breast mass, a negative mammogram must not discourage biopsy of a clinically suspicious lesion. Electronically Signed By: Hugh quinteros/malena:09/17/2024 11:30:31 letter sent: Normal Exam ACR BI-RADS Category 1: Negative
== END ==
LOC: MAMMO 17:14
PROVIDERS: PCP Family Medicine; Referring Provider Family Medicine; Visit Provider Family Medicine
DX: Z12.31 Encounter for screening mammogram for malignant neoplasm of breast (principal); R92.313 Mammographic fatty tissue density, bilateral breasts
CPT/HCPCS: 77063; 77067

== ENCOUNTER → 2025-05-12 07:17 | Outpatient (CLI) | payer OTHER, SELFPAY | PROVIDERS: PCP Family Medicine; Visit Provider Student in an Organized Health Care Education/Training Program | DX: R30.0 Dysuria (principal) | CPT/HCPCS: 87077; 87086; 87186 ==

== ENCOUNTER → 2025-07-02 09:48 | Outpatient (CLI) | payer OTHER, SELFPAY ==
[2025-07-02 10:41] LABS: Add Manual Diff / Slide Review NO; Hematocrit 37.8 % (36-46); Hemoglobin 13.3 g/dL (12.0-16.0); Lymphocytes Absolute Auto 600 /uL (1100-4500); Mean Corpuscular HGB Conc 35.2 % (30-36); Mean Corpuscular Hemoglobin 34.2 PG (26-34); Mean Corpuscular Volume 97.2 fL (80-100); Platelet Count 141 X10^3/uL (150-400)
[2025-07-02 10:48] LABS: Hemoglobin A1C% w Est Avg Glu 5.3 % (4.0-6.0)
[2025-07-02 11:04] LABS: Alanine Aminotransferase 60 IU/L (<35); Albumin 4.1 g/dL (3.5-5.0); Albumin Globulin Ratio 1.3 (1.0-2.8); Alkaline Phosphatase 65 U/L (38-126); Blood Urea Nitrogen 15 mg/dL (7-17); Calcium 9.4 mg/dL (8.4-10.2); Carbon Dioxide 27 mmol/L (22-32); Chloride 99 mmol/L (98-107); Cholesterol 159 mg/dL (140-199); Estimated Glomerular Filt Rate > 60 mL/min (>60); Globulin 3.2 g/dL (1.7-4.1); Glucose 119 mg/dL (70-99); HDL Cholesterol 41 mg/dL (40-60); HEMOLYSIS < 15 (0-50); Potassium 3.7 mmol/L (3.4-5.1); Sodium 136 mmol/L (137-145); Total Protein 7.3 g/dL (6.3-8.2); Triglycerides 104 mg/dL (35-150)
[2025-07-02 11:20] LABS: Vitamin D 25 Hydroxy (D3) < 12.8 ng/mL (30.0-100.0)
[2025-07-02 11:35] LABS: TSH w/ Reflex to FT4 1.17 uIU/mL (0.47-4.68)
== END ==
PROVIDERS: PCP Nurse Practitioner Family; Referring Provider Nurse Practitioner Family; Visit Provider Nurse Practitioner Family
DX: R73.03 Prediabetes (principal); E78.2 Mixed hyperlipidemia; F33.41 Major depressive disorder, recurrent, in partial remission; E66.9 Obesity, unspecified; I10 Essential (primary) hypertension; R79.89 Other specified abnormal findings of blood chemistry; R30.0 Dysuria
CPT/HCPCS: 36415; 80053; 80061; 82306; 83036; 84443; 85025; 87086

== ENCOUNTER 2025-07-02 12:08 | Emergency (ER) | payer OTHER, SELFPAY ==
[2025-07-02 12:22] VITALS: BP 167/79; PULSE 78; RESP 17; TEMP 36.8; O2SAT 96; BMI 35.8
--- NOTE | 2025-07-02 12:27 | ED_ITS ---
HPI - Abdominal Pain General Chief Complaint: Abdominal Pain Stated Complaint: Abdominal Pain Time Seen by Provider: 07/02/25 12:22 History of Present Illness HPI narrative: 64-year-old female history of GERD, hypertension, dyslipidemia, obstructive sleep apnea, obesity, depression, history of prediabetes, arthritis presents with diffuse abdominal pain that is been ongoing for 1 week. She reports being nonbilious vomiting on Friday but that has since subsided her last bowel movement was actually yesterday for which she noticed dark stool. She did take ibuprofen for pain control yesterday. Patient had a colonoscopy 5 years ago that showed noncancerous polyps that were removed. Patient still reports abdominal pain this time and was concerned and came in to be evaluated after being seen at the walk-in clinic and told to come to the ER. Other than what is stated 14 point review of systems is negative. Related Data Previous Rx's ?Medication ?Instructions ?Recorded triamcinolone acetonide 0.1 % 1 applic topical DAILY P RN rash 11/06/21 topical ointment #30 grams losartan 25 mg tablet 25 mg PO DAILY #90 tabs 03/28 01/18 hydrochlorothiazide 25 mg tablet 25 mg PO DAILY #30 ta bs 06/13/25 ciprofloxacin HCl 500 mg tablet 500 mg PO BID #14 tabs 07/02/25 (Cipro) metronidazole 500 mg tablet 500 mg PO Q8H 7 days #21 t abs 07/02/25 Allergies Allergy/AdvReac Type Severity Reaction Status Date / Time No Known Drug Allergies Allergy Verified 07/02/25 11:03 Review of Systems Review of Systems ROS Unobtainable: All systems reviewed & are unremarkable except as noted in HPI and below Patient History Medical History (Updated 07/02/25 @ 14:42 by Evelio Lord, ) Joint pain Prediabetes (08/2021) 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, 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) GERD with esophagitis (02/2021) Common bile duct dilation (11/2020) Mixed hyperlipidemia Mitral valve regurgitation Encounter for routine gynecological examination Encounter for wellness examination in adult (08/30/21) Elevated fasting blood sugar Anemia Screening for malignant neoplasm of breast Family history of heart disease Depression Surgical History Anesthesia History of tonsillectomy Status post delivery (~1994) Family History Brother Age: 66 Marijuana use Mother Age: 82 Arthritis Heart disease Sister Uterine cancer Family/Other Alcohol abuse Social History Smoking Status: Former smoker Tobacco: How many years used: 30 second hand exposure: No alcohol intake: current (2 drinks per day ) substance use type: marijuana (CBD edible ) Exam Narrative Exam Narrative: GENERAL: [64] year old patient appears stated age. Well-developed patient, in mild distress. HEAD: Atraumatic. Normocephalic. EYES: Pupils equal round and reactive. Extraocular motions intact. No scleral icterus. No injection or drainage. ENT: Nose without bleeding, purulent drainage. Throat without erythema, tonsillar hypertrophy or exudate. Airway patent. NECK: Trachea midline. Non tender CARDIOVASCULAR: Regular rate and rhythm without murmurs, gallops, or rubs. RESPIRATORY: Clear to auscultation. Breath sounds equal bilaterally. No wheezes, rales, or rhonchi. GASTROINTESTINAL: Abdomen soft, TTP LLQ nondistended. EXTREMITIES: No edema or joint tenderness. BACK: Nontender without deformity or crepitance. No flank tenderness. NEURO: AOx3. SKIN: No rash or erythema of visible areas Initial Vital Signs Initial Vital Signs: Vital Signs Temperature 98.3 F 07/02/25 12:22 Pulse Rate 78 07/02/25 12:22 Respiratory Rate 17 07/02/25 12:22 Blood Pressure 167/79 H 07/02/25 12:22 Pulse Oximetry 96 07/02/25 12:22 Oxygen Delivery Method Nasal Cannula 07/02/25 12:22 Course Orders Ordered: Discontinued Medications Ciprofloxacin (Ciprofloxacin 250 Mg Tablet) 500 mg PO NOW ONE Stop: 07/02/25 14:37 Last Admin: 07/02/25 14:44 Dose: 500 mg Documented By: DAVY Lactated Ringer's (Lactated Ringers) 1,000 mls @ 1,000 mls/hr IV BOLUS ONE Stop: 07/02/25 13:43 Last Infusion: 07/02/25 14:07 Dose: Infused Documented By: Infusion: 07/02/25 13:00 Dose: 1,000 mls/hr Documented By: Admin: 07/02/25 12:50 Dose: 1,000 mls/hr Documented By: DAVY Metronidazole (Metronidazole 500 Mg Tablet) 500 mg PO NOW ONE Stop: 07/02/25 14:37 Last Admin: 07/02/25 14:44 Dose: 500 mg Documented By: DAVY Vital Signs Vital signs: Vital Signs - 8 hr 07/02/25 12:22 Temperature 98.3 F Pulse Rate 78 Respiratory Rate 17 Blood Pressure 167/79 H Pulse Oximetry 96 Oxygen Delivery Method Nasal Cannula MDM - Abdominal Pain Lab Data 07/02/25 12:30 07/02/25 12:30 Labs: Lab Results 07/02/25 Range/Units 12:30 WBC 8.0 (4.5-11.0) X10^3/uL RBC 3.93 L (4.0-5.2) X10^6/uL Hgb 13.5 (12.0-16.0) g/dL Hct 38.4 (36-46) % MCV 97.6 (80-100) fL MCH 34.4 H (26-34) PG MCHC 35.3 (30-36) % RDW 14.1 (11.6-14.8) % Plt Count 142 L (150-400) X10^3/uL Neut % (Auto) 77.9 H (50-75) % Lymph % (Auto) 10.1 L (25-40) % [place] % (Auto) 11.2 (3-14) % Eos % (Auto) 0.3 L (2-4) % Baso % (Auto) 0.5 (0-2) % Neut # (Auto) 6200 (2626-7510) /uL Lymph # (Auto) 800 L (6027-9542) /uL [place] # (Auto) 900 (0-900) /uL Eos # (Auto) 0 (0-450) /uL Baso # (Auto) 0 (0-100) /uL Sodium 135 L (137-145) mmol/L Potassium 3.7 (3.4-5.1) mmol/L Chloride 99 (98-107) mmol/L Carbon Dioxide 24 (22-32) mmol/L BUN 15 (7-17) mg/dL Creatinine 0.78 (0.52-1.04) mg/dL Estimated GFR > 60 (>60) mL/min BUN/Creatinine Ratio 19.2 (6-22) Glucose 108 H (70-99) mg/dL Calcium 9.5 (8.4-10.2) mg/dL Total Bilirubin 1.8 H (0.2-1.3) mg/dL AST 72 H (14-36) IU/L ALT 63 H (<35) IU/L Alkaline Phosphatase 71 (38-126) U/L Total Protein 8.5 H (6.3-8.2) g/dL Albumin 4.6 (3.5-5.0) g/dL Globulin 3.9 (1.7-4.1) g/dL Albumin/Globulin Ratio 1.2 (1.0-2.8) Lipase 64 (23-300) U/L Imaging Data CT scan - abdomen/pelvis: Radiologist's Impression: [address] [address] [address] Scan Report Signed Patient: Na Burch MR#: [id number] : 1960 Acct:[id number] Age/Sex: 64 / F Date of Service: 07/02/25 Loc: ED Accession Number: [id number] Procedure: CT angio Abd/Pel GI Bleed Ordering Provider: Evelio Lord D.O. PROCEDURE: CT ANGIO ABD/PEL GI BLEED INDICATIONS: gi bleed TECHNIQUE: Precontrast images were performed. After the administration of intravenous contrast, 2.5 mm thick sections acquired from the diaphragm to the symphysis, with arterial phase imaging and delayed phase imaging.. 10 mm maximum-intensity projection (MIP) reformats were then acquired. For radiation dose reduction, the following was used: automated exposure control. COMPARISON: (Prior imaging is not available for review from the archive at the time of this dictation.) FINDINGS: Image Quality: Diagnostic. Abdominal aorta: No aortic aneurysm or evidence of acute aortic syndrome. Mesenteric arteries: Patent without hemodynamically significant stenosis. Renal arteries: Patent without hemodynamically significant stenosis. OTHER: Lower Chest: No significant findings. Liver: No solid mass. Gallbladder: No radiopaque gallstones or wall thickening. Biliary ducts: No biliary dilation. Pancreas: No ductal dilation. Spleen: Size is within normal limits. Adrenal Glands: No adrenal nodules. Kidneys and Ureters: No hydronephrosis. No solid mass. No complex renal cystic lesion which requires follow up. Bowel and peritoneum: There is focal moderate wall thickening with inflammatory change within the sigmoid colon. Significant diverticula formation can be seen within this region. At this site, no findings of active bleeding can be seen. No adjacent abscess is seen. There is a small amount of free fluid seen. No free air is seen. No dilated loops of small bowel are seen. A normal appendix is noted. Ventral Wall: No hernia. Abdominal Nodes: No retroperitoneal or mesenteric adenopathy by size criteria. Vessels: Aorta and inferior vena cava are normal in size. Incidental note is made of a retroaortic left renal vein. PELVIS: Pelvic Organs: Unremarkable. Bladder: Unremarkable. Pelvic Nodes: No enlarged lymph nodes. Miscellaneous: No inguinal hernias are seen. Bones: No aggressive osseous abnormality. Age-appropriate bony degenerative changes are seen. IMPRESSION: Moderate sigmoid diverticulitis, without karla findings of perforation or abscess. No findings of active bleeding can be seen at the time of this study. ECG Data Interpretation: NSR HR 71 FL 174 QRS [address]-t wave change No previous EKG to compare MDM Narrative Medical decision making narrative: All lab work, vital signs, nurse triage note, medication list, previous ER visits, and all imaging studies reviewed. CT scan showed moderate diverticulitis without karla findings of perforation or abscess. No findings of active bleeding can be seen at this time on this study. Patient given Cipro Flagyl here. WBC 8. Hemoglobin 13.5. Platelet 142 sodium 135 glucose 108 T bili 1.8 AST 72 ALT 63 lipase 64. Differential diagnosis pancreatitis diverticulitis constipation small-bowel obstruction. DC home on Cipro Flagyl Discharge Plan Departure Patient Disposition: Home Clinical Impression: Acute diverticulitis Instructions: DI for Diverticulitis Activity Restrictions/Additional Instructions: Return with new or worsening symptoms. Take your medicines directed. Clear liquid diet advance as tolerated. Follow up PCP in 1-2 weeks if no improvement in symptoms. Prescriptions: New ciprofloxacin HCl [Cipro] 500 mg tablet 500 mg PO BID Qty: 14 0RF metronidazole 500 mg tablet 500 mg PO Q8H 7 Days Qty: 21 0RF No Action triamcinolone acetonide 0.1 % ointment 1 applic TOP DAILY PRN (Reason: rash) Qty: 30 0RF losartan 25 mg tablet 25 mg PO DAILY Qty: 90 0RF hydrochlorothiazide 25 mg tablet 25 mg PO DAILY Qty: 30 0RF Referrals: Peranteau,Jewell, MANAGER REVIEW[facility] [Primary Care Provider, Family Practice] Stand Alone Forms: Patient Portal/API
[2025-07-02 12:33] VITALS: BP 151/87; PULSE 73; RESP 27; O2SAT 97
[2025-07-02 12:39] LABS: Add Manual Diff / Slide Review NO; Hematocrit 38.4 % (36-46); Hemoglobin 13.5 g/dL (12.0-16.0); Lymphocytes Absolute Auto 800 /uL (1100-4500); Mean Corpuscular HGB Conc 35.3 % (30-36); Mean Corpuscular Hemoglobin 34.4 PG (26-34); Mean Corpuscular Volume 97.6 fL (80-100); Platelet Count 142 X10^3/uL (150-400)
--- NOTE | 2025-07-02 12:44 | DI.CT.S_ITS ---
PROCEDURE: CT ANGIO ABD/PEL GI BLEED INDICATIONS: gi bleed TECHNIQUE: Precontrast images were performed. After the administration of intravenous contrast, 2.5 mm thick sections acquired from the diaphragm to the symphysis, with arterial phase imaging and delayed phase imaging.. 10 mm maximum-intensity projection (MIP) reformats were then acquired. For radiation dose reduction, the following was used: automated exposure control. COMPARISON: (Prior imaging is not available for review from the archive at the time of this dictation.) FINDINGS: Image Quality: Diagnostic. Abdominal aorta: No aortic aneurysm or evidence of acute aortic syndrome. Mesenteric arteries: Patent without hemodynamically significant stenosis. Renal arteries: Patent without hemodynamically significant stenosis. OTHER: Lower Chest: No significant findings. Liver: No solid mass. Gallbladder: No radiopaque gallstones or wall thickening. Biliary ducts: No biliary dilation. Pancreas: No ductal dilation. Spleen: Size is within normal limits. Adrenal Glands: No adrenal nodules. Kidneys and Ureters: No hydronephrosis. No solid mass. No complex renal cystic lesion which requires follow up. Bowel and peritoneum: There is focal moderate wall thickening with inflammatory change within the sigmoid colon. Significant diverticula formation can be seen within this region. At this site, no findings of active bleeding can be seen. No adjacent abscess is seen. There is a small amount of free fluid seen. No free air is seen. No dilated loops of small bowel are seen. A normal appendix is noted. Ventral Wall: No hernia. Abdominal Nodes: No retroperitoneal or mesenteric adenopathy by size criteria. Vessels: Aorta and inferior vena cava are normal in size. Incidental note is made of a retroaortic left renal vein. PELVIS: Pelvic Organs: Unremarkable. Bladder: Unremarkable. Pelvic Nodes: No enlarged lymph nodes. Miscellaneous: No inguinal hernias are seen. Bones: No aggressive osseous abnormality. Age-appropriate bony degenerative changes are seen. IMPRESSION: Moderate sigmoid diverticulitis, without karla findings of perforation or abscess. No findings of active bleeding can be seen at the time of this study. Dictated by: Joe Red M.D. on 07/02/2025 at 12:38 Approved by: Joe Red M.D. on 07/02/2025 at 12:41
[2025-07-02] MEDS: LACTATED RINGERS 1,000 ML 1000 ML IV (12:50)
[2025-07-02 12:51] LABS: Alanine Aminotransferase 63 IU/L (<35); Albumin 4.6 g/dL (3.5-5.0); Albumin Globulin Ratio 1.2 (1.0-2.8); Alkaline Phosphatase 71 U/L (38-126); Blood Urea Nitrogen 15 mg/dL (7-17); Calcium 9.5 mg/dL (8.4-10.2); Carbon Dioxide 24 mmol/L (22-32); Chloride 99 mmol/L (98-107); Estimated Glomerular Filt Rate > 60 mL/min (>60); Globulin 3.9 g/dL (1.7-4.1); Glucose 108 mg/dL (70-99); HEMOLYSIS < 15 (0-50); Lipase 64 U/L (23-300); Potassium 3.7 mmol/L (3.4-5.1); Sodium 135 mmol/L (137-145); Total Protein 8.5 g/dL (6.3-8.2)
[2025-07-02 13:00] VITALS: BP 129/70; PULSE 68; RESP 19; O2SAT 98
[2025-07-02 13:30] VITALS: BP 146/69; PULSE 76; RESP 26; O2SAT 98
--- NOTE | 2025-07-02 13:49 | EKG_ITS ---
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
[2025-07-02 14:00] VITALS: BP 144/66; PULSE 72; RESP 24; O2SAT 99
--- NOTE | 2025-07-02 14:09 | PC.NURSE ---
Pt up to BR independently. Appears in NAD.
[2025-07-02 14:30] VITALS: BP 140/66; PULSE 65; RESP 23; O2SAT 97
[2025-07-02] MEDS: CIPROFLOXACIN 250 MG TABLET 500 MG PO (14:44)
== END 2025-07-02 14:58 | disposition home or self-care (01) ==
PROVIDERS: Emergency Provider Family Medicine; PCP Nurse Practitioner Family
DX: K57.92 Diverticulitis of intestine, part unspecified, without perforation or abscess without bleeding (principal); R73.03 Prediabetes; E78.2 Mixed hyperlipidemia; F33.41 Major depressive disorder, recurrent, in partial remission; E66.9 Obesity, unspecified; I10 Essential (primary) hypertension; R79.89 Other specified abnormal findings of blood chemistry; R30.0 Dysuria
CPT/HCPCS: 36415; 74174; 80053; 80061; 82306; 83036; 83690; 84443; 85025; 87086; 93005; 96360; 99284; 99285; Q9967

== ENCOUNTER → 2025-07-30 12:19 | Outpatient (CLI) | payer OTHER, SELFPAY ==
[2025-07-30 13:26] LABS: Alanine Aminotransferase 32 IU/L (<35); Albumin 4.1 g/dL (3.5-5.0); Albumin Globulin Ratio 1.3 (1.0-2.8); Alkaline Phosphatase 68 U/L (38-126); Blood Urea Nitrogen 24 mg/dL (7-17); Calcium 9.4 mg/dL (8.4-10.2); Carbon Dioxide 27 mmol/L (22-32); Chloride 102 mmol/L (98-107); Estimated Glomerular Filt Rate > 60 mL/min (>60); Globulin 3.2 g/dL (1.7-4.1); Glucose 104 mg/dL (70-99); HEMOLYSIS < 15 (0-50); Potassium 4.3 mmol/L (3.4-5.1); Sodium 137 mmol/L (137-145); Total Protein 7.3 g/dL (6.3-8.2)
== END ==
PROVIDERS: PCP Nurse Practitioner Family; Referring Provider Nurse Practitioner Family; Visit Provider Nurse Practitioner Family
DX: R79.89 Other specified abnormal findings of blood chemistry (principal); K76.0 Fatty (change of) liver, not elsewhere classified
CPT/HCPCS: 36415; 80053